=== PATIENT | male | born 1945 | race Caucasian/White ===

== ENCOUNTER 2021-10-13 10:14 | Inpatient (IN) | payer MEDICARE, OTHER, SELFPAY ==
[2021-10-13] VITALS (17 sets, daily range): BP systolic 108–137; BP diastolic 66–83; PULSE 91–102; RESP 13–22; TEMP 37.2; O2SAT 86–94
--- NOTE | 2021-10-13 10:44 | XR_ITS ---
WS: [id number] Exam: XR chest 1V portable [id number] Date/Time of Exam: 10/13/2021 10:47 AM Reason For Exam: Covid No priors. There are infiltrates in the left lower lobe and also possibly along the right heart border. The lung s are hyperinflated and otherwise clear. Normal cardiomediastinal silhouette. Bony structures are int act. Monitoring leads superimpose the chest. XR/XR chest 1V portable [id number] IMPRESSION: 1. Infiltrate and atelectasis in the left base. There may also be some infiltra te along the right heart border. 2. Pulmonary hyperinflation which probably indicates obstructive lung disease.
--- NOTE | 2021-10-13 10:59 | ED_ITS ---
HPI - COVID General: Chief Complaint: COVID symptoms Stated Complaint: Covid + SOB, Fever Time Seen by Provider: 10/13/21 10:59 Triage information: Has fever, cough or shortness of breath . Exposure to COVID + person last 14 days History of Present Illness: Mr. Posadas is a 76-year-old gentleman with history of tobaccoism who presents to the emergency department due to shortness of breath and cough. He has had symptoms for approximately 5 days that were gradual in onset. He took a home COVID test which was positive. He reports associated generalized malaise with muscle aches and chills. Additionally he endorses pain with urination. Overall course of symptoms has worsened. Intensity is moderate to severe. Of note the patient denies medical conditions but has not been to a doctor in many years. No other specific changes in health, exacerbating, or alleviating factors identified. Onset (ago): day(s) Severity: moderate Pertinent comorbid conditions: tobacco use/smoking COVID Results: SARS-CoV-2 Antigen (Rapid) Positive (Negative) H 10/13/21 11:1 2 Review of Systems General: Reports: 10 or more systems reviewed and unremarkable except in HPI and below PFSH ED PFSH: Medical History COPD (chronic obstructive pulmonary disease) No significant past medical history Renal mass since 2019 Smoker Surgical History History of surgery on lower extremity No significant past surgical history Family History Denies family history of Cancer Social History Smoking and tobacco status: current every day smoker Physical Exam Const: COMMON NORMALS: alert GENERAL APPEARANCE: cooperative, well developed and ill appearing HENMT: COMMON NORMALS: normocephalic and atraumatic HEAD & SCALP: n ormocephalic and atraumatic Eye: COMMON NORMALS: conjunctivae normal CONJUNCTIVA: Yes conjunctivae normal SCLERA: sclerae normal Neck/C-Spine: COMMON NORMALS: supple GENERAL: Yes trachea midline Resp: EFFORT & INSPECTION: Yes tachypneic AUSCULTATION: rhonchi and diminished lung sounds Cardio: COMMON NORMALS: regular rate and regular rhythm RATE: regular rate RHYTHM: regular rhythm GI: COMMON NORMALS: Soft to palpation PALPATION: Yes Soft to palpation and No Tenderness to palpation present (GI) Extremity: GENERAL: Yes normal exam except as noted and No edema Neuro: COMMON NORMALS: moves all extremities SENSORIUM/ORIENTATION: Yes alert and No Orientation impaired Psych: COMMON NORMALS: mental status grossly normal and Normal thought process present THOUGHT PROCESS: Normal thought process present Course ED course: - Patient was seen and evaluated by me at bedside - Patient placed on cardiac monitors, IV access obtained - Initial evaluation notable for exam as above. Respiratory distress with hypoxemia on room air. - Labs and xrays personally interpreted by me. EKG notable for sinus rhythm, no STEMI. - RT treatment ordered, steroids ordered - Labs notable for no leukocytosis, normal hemoglobin. Metabolic panel with no significant acute electrolyte derangement. CRP elevated. COVID-positive - Imaging notable for bilateral infiltrate, COPD. No pneumothorax. Ultrasound notable for enlarged prostate gland, postvoid residual elevated, solid renal mass still present. - Upon serial reexamination after treatment the patient was mildly improved,, patient still requiring oxygen. - Based on patient history, evaluation, and testing as interpreted the most likely cause of the patient's condition is COVID-19 with acute hypoxic respiratory failure. - The results of ED evaluation were discussed with the patient including plan for admission due to requirement for level of care not available if discharged to prevent significant worsening/deterioration. - Admitting service was contacted and Dr Cee with the hospitalist service agreed to admit the patient - Patient was admitted without further deterioration or significant events. Note: Click bubbles or prepopulated jacinto in note writing are used for assistance w ith data collection and billing and are inherently more limited than narrative and other text portions of this note. Please use narrative for additional clinical history and defer to narrative/free test for any case of contradictory information. If information appears in only free text or click bubble it should be considered present or absent as reported. Please contact note telegraphic typewriter operator chief for clarifications of clinical information or contradictory information. MDM is a brief summary, contradictory or erroneous seeming information should be clarified and full note should be reviewed. Vital Signs: Vital signs: Vital Signs Temperature 98.1 F 10/16/21 12:48 Pulse Rate 74 10/16/21 12:48 Respiratory Rate 16 10/16/21 12:48 Blood Pressure 118/68 10/16/21 12:48 Pulse Oximetry 83 L 10/16/21 13:40 Oxygen Delivery Me thod 10/16/21 12:00 Oxygen Flow Rate 8 10/16/21 13:40 MDM - COVID Medical Decision Making 76-year-old gentleman with history of COPD presenting with respiratory symptoms. Patient in respiratory distress was initially with new oxygen requirement which improved respiratory distress. Patient COVID-positive. Admitted for further management of COVID-19 with acute hypoxic respiratory failure. Medical Records I reviewed the patient's medical records. Lab Data I reviewed the patient's lab results. : 10/15/21 04:45 10/15/21 04:45 Radiology Impressions Renal Ultrasound 10/13/21 14:54 IMPRESSION: 1. Markedly enlarged prostate gland encroaches into the urinary bladder. 2. Large amount of post void volume remains in the urinary bladder. 3. Patient has a known solid mass associated with the LEFT kidney measuring at least 6.8 x 5.6 x 7.7 cm. Solid renal mass also described on 12/05/2018. Chest/Abdomen/Pelvis CT 10/13/21 17:57 IMPRESSION: 1. Bibasilar consolidations in the dependent aspects of the lung bases, new from most recent comparison. Findings could reflect multifocal pneumonia or given bronchial wall thickening and filling defects bronchitis with mucous plugging and corresponding atelectasis. 2. Mild ectasia of the ascending thoracic aorta up to 4 cm. 3. Moderate emphysematous changes of the lungs. IMPRESSION: 1. Redemonstrated 7 cm left renal mass along the superior pole which is not significantly changed from most recent comparison. 2. Sequela of chronic bladder outlet obstruction with small bladder diverticula. There may be a superimposed cystitis given some inflammatory signal around the anterior diverticula. COMMENTS: Consistent with the [employer]'s Incidental Findings Committee white paper (J Am Colleen Radiol 2018): Any incidental renal lesion less than 1 cm or classified as too small to characterize, or any incidental cystic renal lesion characterized as simple-appearing, is likely benign. No follow-up imaging is recommended for these lesions per consensus recommendations based on imaging criteria. Chest X-Ray 10/16/21 08:02 IMPRESSION: 1. Bilateral lower lobe pneumonia. 2. COPD changes. Bone Scan Nuclear Medicine 10/16/21 11:58 IMPRESSION: No evidence of osseous metastatic disease. Laboratory Results WBC 9.8 10^3/uL (4.0-10.0) 10/13/21 11:10 RBC 4.65 10^6/uL (4.1-5.3) 10/13/21 11:10 Hgb 15.4 g/dL (11.7-16.6) 10/13/21 11:10 Hct 46.7 % (42.0-52.0) 10/13/21 11:10 MCV 100.4 fl (80-94) H 10/13/21 11:10 MCH 33.1 pg (28.0-34.0) 10/13/21 11:10 MCHC 33.0 g/dL (30.0-36.0) 10/13/21 11:10 RDW 14.1 % (12.1-15.1) 10/13/21 11:10 Plt Count 135 10^3/cmm (130-400) 10/13/21 11:10 MPV 10.8 fL (7.4-10.4) H 10/13/21 11:10 Neut % (Auto) 82.0 % 10/13/21 11:10 Lymph % (Auto) 12.6 % 10/13/21 11:10 Antelope % (Auto) 4.8 % 10/13/21 11:10 Eos % (Auto) 0.0 % 10/13/21 11:10 Baso % (Auto) 0.2 % 10/13/21 11:10 Neut # (Auto) 7.99 10^3/uL (1.8-7.7) H 10/13/21 11:10 Lymph # (Auto) 1.2 10^3/uL (0.8-4.8) 10/13/21 11:10 Antelope # (Auto) 0.5 10^3/uL (0.2-0.9) 10/13/21 11:10 Eos # (Auto) 0.0 10^3/uL (0.0-0.8) 10/13/21 11:10 Baso # (Auto) 0.0 10^3/uL (0.0-0.1) 10/13/21 11:10 Nucleated RBC % (auto) 0 % 10/13/21 11:10 Nucleated RBCs # 0.0 /100WBC 10/13/21 11:10 Sodium 136 mmol/L (136-145) 10/13/21 12:54 Potassium 3.9 mmol/L (3.5-5.1) 10/13/21 12:54 Chloride 99 mmol/L (98-107) 10/13/21 12:54 Carbon Dioxide 29 mmol/L (22-29) 10/13/21 12:54 Anion Gap 11.9 (5-19) 10/13/21 12:54 BUN 15 mg/dL (8-23) 10/13/21 12:54 Creatinine 0.5 mg/dL (0.7-1.2) L 10/13/21 12:54 GFR Calculation Not Reportable 10/13/21 12:54 Glucose 110 mg/dL (65-115) 10/13/21 12:54 Calculated Osmolality 283 mOsm/kg (285-295) L 10/13/21 12:54 Calcium 7.9 mg/dL (8.5-10.5) L 10/13/21 12:54 Total Bilirubin 0.3 mg/dL (0.15-1.2) 10/13/21 12:54 AST 26 U/L (0-40) 10/13/21 12:54 ALT 11 U/L (0-41) 10/13/21 12:54 Alkaline Phosphatase 62 IU/L (40-130) 10/13/21 12:54 Troponin T Baseline 9 ng/L (0-15) 10/13/21 11:10 Troponin T 120 Minute 11.75 ng/L (0-15) 10/13/21 12:54 Delta Troponin T 2.75 ABS# (0-10) 10/13/21 12:54 C-Reactive Protein 197.4 mg/L (0.0-4.9) H 10/13/21 12:54 NT-Pro-B Natriuret Pep 334 pg/mL (0-450) 10/13/21 12:54 Total Protein 6.1 g/dL (6.6-8.7) L 10/13/21 12:54 Albumin 3.1 g/dL (3.5-5.2) L 10/13/21 12:54 Globulin 3.0 g/dL (1.3-4.6) 10/13/21 12:54 Procalcitonin 1.88 ng/mL (0-0.5) H 10/13/21 12:54 Urine Color Yellow (Yellow) 10/13/21 13:15 Urine Appearance Clear (CLEAR) 10/13/21 13:15 Urine pH 5 (5-7) 10/13/21 13:15 Ur Specific [place] 1.015 (1.005-1.030) 10/13/21 13:15 Urine Protein 1+ (Negative) H 10/13/21 13:15 Urine Glucose (UA) Norm (Normal) 10/13/21 13:15 Urine Ketones Negative (Negative) 10/13/21 13:15 Urine Blood 3+ (Negative) H 10/13/21 13:15 Urine Nitrate Negative (Negative) 10/13/21 13:15 Urine Bilirubin 1+ (Negative) H 10/13/21 13:15 Urine Urobilinogen 4 mg/dL (Negative) H 10/13/21 13:15 Ur Leukocyte Esterase Negative (Negative) 10/13/21 13:15 Urine RBC 0-4 /hpf (0-2) H 10/13/21 13:15 Urine WBC 0-4 /hpf (0-5) H 10/13/21 13:15 Ur Squamous Epith Cells 0-4 /hpf (0-5) H 10/13/21 13:15 Amorphous Sediment Not Reportable 10/13/21 13:15 Urine Bacteria None /hpf (NONE) 10/13/21 13:15 Influenza Type A Ag Negative (Negative) 10/13/21 11:12 Influenza Type B Ag Negative (Negative) 10/13/21 11:12 SARS-CoV-2 Ag (Rapid) Positive (Negative) H 10/13/21 11:12 SARS-CoV-2 Antigen (Rapid) Positive (Negative) H 10/13/21 11:1 2 Discharge Plan Discharge Patient Disposition: Admitted As Inpatient Admit Provider: Heladio Cee Clinical Impression: COVID-19, Acute respiratory failure with hypoxia, Hematuria Condition: Stable Discharge Diet: Cardiac Discharge Activity: Increase activity as tolerated Coding Level of Care Code ED Button Machine Operator for Chg Fwd Exam Comprehensive
[2021-10-13 11:18] LABS: Basophils % 0.2 %; Lymphocytes # 1.2 10^3/uL (0.8-4.8); Mean Corpuscular Volume 100.4 fl (80-94); Nucleated Red Blood Cells % 0 %
--- NOTE | 2021-10-13 11:26 | ECG_ITS ---
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 Measurements Intervals [place] Rate: 99 P: 80 WV: 139 QRS: -57 QRSD: 98 T: 39 QT: 355 QTc: 457 Interpretive Statements SINUS RHYTHM LEFT AXIS DEVIATION [QRS AXIS < -30] No previous ECG available for comparison Electronically Signed On 10-13-2021 17:22:55 CDT by Kya Hunt M.D. [id number]
[2021-10-13 11:42] LABS: Troponin(5th) Baseline 9 ng/L (0-15)
[2021-10-13 11:54] LABS: Hematocrit 46.7 % (42.0-52.0); Hemoglobin 15.4 g/dL (11.7-16.6); Lymphocytes % 12.6 %; Mean Corpuscular Hemoglobin 33.1 pg (28.0-34.0); Mean Platelet Volume 10.8 fL (7.4-10.4); Monocytes # 0.5 10^3/uL (0.2-0.9); Monocytes % 4.8 %; Neutrophils # 7.99 10^3/uL (1.8-7.7); Platelet Count 135 10^3/cmm (130-400); Red Blood Count 4.65 10^6/uL (4.1-5.3); Red Cell Distribution Width 14.1 % (12.1-15.1); White Blood Count 9.8 10^3/uL (4.0-10.0)
[2021-10-13 11:55] LABS: Slide Review Slide Review Perform
[2021-10-13 13:30] LABS: Troponin 5 2HR 11.75 ng/L (0-15)
--- NOTE | 2021-10-13 13:35 | ECG_ITS ---
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 Measurements Intervals [place] Rate: 96 P: 94 WI: 149 QRS: -56 QRSD: 97 T: 40 QT: 360 QTc: 455 Interpretive Statements SINUS RHYTHM LEFT AXIS DEVIATION [QRS AXIS < -30] ANTEROSEPTAL MYOCARDIAL INFARCTION , OF INDETERMINATE AGE [40+ ms Q WAVE IN V1-V4] Compared to ECG 10/13/2021 11:26:47 Myocardial infarct finding now present Electronically Signed On 10-13-2021 17:46:57 CDT by Kya Hunt M.D. [id number]
[2021-10-13 13:39] LABS: Alanine Aminotransferase 11 U/L (0-41); Albumin Level 3.1 g/dL (3.5-5.2); Alkaline Phosphatase 62 IU/L (40-130); Blood Urea Nitrogen 15 mg/dL (8-23); Calcium 7.9 mg/dL (8.5-10.5); Carbon Dioxide 29 mmol/L (22-29); Chloride 99 mmol/L (98-107); Glucose 110 mg/dL (65-115); NT Pro B Type Natriuretic Pept 334 pg/mL (0-450); Osmolality Calculated 283 mOsm/kg (285-295); Sodium 136 mmol/L (136-145); Total Bilirubin 0.3 mg/dL (0.15-1.2); Total Protein 6.1 g/dL (6.6-8.7)
[2021-10-13 13:40] LABS: Anion Gap 11.9 (5-19); Potassium 3.9 mmol/L (3.5-5.1)
[2021-10-13 13:41] LABS: Aspartate Amino Transferase 26 U/L (0-40)
[2021-10-13 13:42] LABS: Troponin 5 2HR Delta 2.75 ABS# (0-10)
[2021-10-13 13:42] LABS: Add Urine Microscopic? YES; Bilirubin Urine 1+ (Negative); Blood Urine 3+ (Negative); Glucose Urine UA Norm (Normal); Ketones Urine Negative (Negative); Leukocyte Esterase Urine Negative (Negative); Nitrate Urine Negative (Negative); Protein Urine 1+ (Negative); Specific Gravity, Urine 1.015 (1.005-1.030); Urine Appearance Clear (CLEAR); Urine Color Yellow (Yellow); Urobilinogen Urine 4 mg/dL (Negative); pH Urine 5 (5-7)
[2021-10-13 13:46] LABS: Influenza A by IFA Negative (Negative); Influenza B by IFA Negative (Negative)
[2021-10-13 13:48] LABS: Add Urine Culture? No; RBC Urine 0-4 /hpf (0-2); Squamous Epithelial Cell Urine 0-4 /hpf (0-5); WBC Urine 0-4 /hpf (0-5)
[2021-10-13 14:16] LABS: SARS Covid-2 Antigen Positive (Negative)
[2021-10-13] MEDS: ipratropium-albuterol 3 mL Neb INHALATION ×2 (14:32→23:01)
[2021-10-13 14:41] LABS: C Reactive Protein 197.4 mg/L (0.0-4.9)
--- NOTE | 2021-10-13 14:54 | US_ITS ---
WS: [id number] RENAL ULTRASOUND URINARY BLADDER ULTRASOUND HISTORY: hematuria COMPARISON: None available. TECHNIQUE: 2-D and color Doppler imaging of the kidney submitted. Right kidney: 11.4 cm x 4.6 cm x 4.7 cm. Normal echogenicity with no hydronephrosis or mass. Left kidney: 11.7 cm x 4.6 cm x 6.0 cm. Patient has a known large solid mass associated with the LEFT kidney which has been previously descri bed. Mass measures at least 6.8 x 5.6 x 7.7 cm. There is increased vascularity. No renal obstruction. Aorta: Not visualized. Urinary Bladder: Distended urinary bladder with enlarged prostate. Prostate measures at least 7.9 x 5 .2 x 5.3 cm encroaches into the base of the bladder. Prevoid volume 117 mL. Post void volume 101 mL. US/US renal BI with PV bladder IMPRESSION: 1. Markedly enlarged prostate gland encroaches into the urinary bladder. 2. Large amount of post void volume remains in the urinary bladder. 3. Patient has a known solid mass associated with the LEFT kidney measuring at least 6.8 x 5.6 x 7.7 cm. Solid renal mass also described on 12/05/2018.
[2021-10-13] MEDS: dexamethasone 10 mg/mL INJ 6 MG IVP (15:43)
[2021-10-13 15:51] LABS: Procalcitonin 1.88 ng/mL (0-0.5)
--- NOTE | 2021-10-13 16:40 | ECG_ITS ---
[facility] Test Date: 2021-10-13 Pat Name: Jesus Posadas Department: Room: 271 Gender: Male Social Staff Worker: : 1945 Requested By: Sina Sanders Order Number: [id number] Gabby MD: Kya Hunt M.D. Measurements Intervals [place] Rate: 92 P: 95 [place]: 144 QRS: -52 QRSD: 94 T: 23 QT: 370 QTc: 459 Interpretive Statements SINUS RHYTHM LEFT ANTERIOR FASCICULAR BLOCK [QRS AXIS <= -45, QR IN I, RS IN II] SEPTAL MYOCARDIAL INFARCTION , PROBABLY OLD [40+ ms Q WAVE IN V1/V2] Compared to ECG 10/13/2021 13:35:04 Left anterior fascicular block now present Left-axis deviation no longer present Myocardial infarct finding still present Electronically Signed On 10-13-2021 17:37:20 CDT by Kya Hunt M.D. [id number]
--- NOTE | 2021-10-13 17:06 | PM.HP ---
Providers/Chief Complaint Admitting Physician: Heladio Cee MD Primary Care Provider: Renea Gutiérrez, ORNAMENTAL METAL WORKER HELPER-C Chief Complaint: Covid + SOB, Fever History of Present Illness Jesus Posadas is a 76 year old male without significant past medical history presented with chief complaint of worsening fatigue. Patient is stating that he started having fatigue and lethargy for about 2 weeks. He went to [place] 2 weeks ago. His symptoms started even before that. At home he has started noticing dark-colored urine, low-grade fever was noticed by the family member as well. No active chest pain or shortness of breath however he is endorsing nonproductive cough. No recent diarrhea. Or strokelike symptoms. Today because of fatigue and lethargy and low-grade fever he decided to come to the hospital for further evaluation. He has been diagnosed with COVID-19. In the ER he received 6 mg of Decadron I have started him on remdesivir, will request CT chest as he is a smoker, he has been losing weight, endorsing anorexia, He has been smoking half a pack a day for last 50 years Family is at the bedside Currently he is on 4 L nasal cannula No acute respite distress however he is showing signs of COPD, crackles and rhonchi present lung auscultation I requested CT chest start him on ceftriaxone for BPH related UTI and hematuria Patient knows about renal mass Patient is a full code I requested MRSA PCR Starting cardiac diet Review of Systems Const: Reports: fever(s), body aches, change in appetite, change in weight, fatigue and malaise Eyes: Denies: change in vision ENMT: Denies: throat pain Card: Denies: chest pain Resp: Reports: dyspnea GI: Denies: abdominal pain : Denies: flank pain Musc: Denies: neck pain Skin/Breast: Denies: rash Neuro: Denies: headache(s) Psych: Denies: anxiety Endo: Denies: polyuria Asif/Lymph: Denies: easy bruising All/Imm: Denies: urticaria Medications/Allergies Home Medications Medication Instructions Recorded Confirmed Last Taken Type No Known Home Medications 10/13/21 10/13/21 Unknown History Allergies Allergy/AdvReac Type Severity Reaction Status Date / Time No Known Allergies Allergy Verified 10/13/21 11:54 PFSH Acute PFSH: Medical History COPD (chronic obstructive pulmonary disease) No significant past medical history Renal mass since 2019 Smoker Surgical History History of surgery on lower extremity No significant past surgical history Family History Denies family history of Cancer Social History Smoking and tobacco status: current every day smoker Vitals/I&O/Wt Last Vital Signs Temp 98.9 F 10/13/21 10:28 Pulse 94 10/13/21 16:30 Resp 19 H 10/13/21 16:00 BP 117/66 10/13/21 16:30 Pulse Ox 91 10/13/21 16:30 O2 Del Method 10/13/21 14:35 O2 Flow Rate 3.5 10/13/21 14:35 Physical Exam Narrative: Thin lean, malnourished elderly male very comfortable in his bed No respiratory distress S1, S2 Rhonchi and crackles appreciated in the lung base No signs of stroke Appropriate mood and affect Family at the bedside EOMI, PERRLA Abdomen is soft Abdomen is soft Data : 10/13/21 11:10 10/13/21 12:54 A&P Assessment and plan (1) Hematuria: Status: Acute (2) COVID-19: Status: Acute (3) Acute respiratory failure with hypoxia: Status: Acute (4) Anorexia: Status: Acute (5) Weight loss: Status: Acute (6) BPH (benign prostatic hyperplasia): Status: Acute Plan COVID-19 related acute hypoxia DuoNeb treatment with budesonide Incentive spirometry No active respiratory distress COPD Patient has pursed lip breathing Has not seen a doctor in a long time Endorsing anorexia, weight loss, 50-year smoking history, DuoNeb Would recommend outpatient pulmonary follow-up BPH Prostatitis? Painful hematuria No signal signs of UTI, patient is complaining of dysuria, I will start ceftriaxone empirically CT abdomen pelvis because of BPH Will need outpatient urology follow-up EKG showing left anterior fascicle block, no active chest pain or shortness of breath Wean oxygen down to room air Respiratory to assess Will give patient at least 48 hours, monitor inflammatory markers Check D-dimer Patient is full code Cardiac diet Patient is malnourished mild protein calorie malnourishment Will add protein supplements Dietary consultation I am holding DVT prophylaxis for tonight, if hemoglobin stays stable and hematuria resolves will start tomorrow SCDs for now No signs of stroke of lower extremity weakness This is likely COVID-19 related Attestations Medical Necessity Statement*: Anticipating more than 2 midnights for anticipating more than 2 midnights for management of COVID-19 pneumonia. Time Spent in Patient Care: 40 Coding Level of Care Code Acute Seasoner Hand for Chg Fwd Diagnoses Hematuria R31.9 COVID-19 U07.1 Acute respiratory failure with hypoxia J96.01 Anorexia R63.0 Weight loss R63.4 BPH (benign prostatic hyperplasia) N40.0
[2021-10-13 17:47] LABS: Troponin 5 6HR 12.12 ng/L (0-15)
[2021-10-13 17:56] LABS: Procalcitonin 1.82 ng/mL (0-0.5)
--- NOTE | 2021-10-13 17:57 | CTR_ITS ---
PROCEDURE INFORMATION: Exam: CT Chest Without Contrast; Diagnostic Exam date and time: 10/13/2021 9:41 PM Age: 76 years old Clinical indication: Shortness of breath; Patient HX: C/O SOB. Abnormal weight loss. Known left renal mass. ; Additional info: Smoker anorexia, SOB TECHNIQUE: Imaging protocol: Diagnostic computed tomography of the chest without contrast. Radiation optimization: All CT scans at this facility use at least one of these dose optimization techniques: automated exposure control; mA and/or kV adjustment per patient size (includes targeted exams where dose is matched to clinical indication); or iterative reconstruction. COMPARISON: CT Chest/Abdomen/Pelvis w IV* 12/05/2018 2:26 PM RADIATION DOSE METRICS: Total DLP (mGy-cm): 560.58 FINDINGS: Lungs: Bibasilar consolidations in the posterior dependent aspect of the lung bases, new from most recent comparison. There also appears to be mild bronchial wall thickening of the lower lobe bronchi and intraluminal filling defects adjacent to the consolidations. Moderate centrilobular emphysematous changes of the lungs noted. No pulmonary nodules/masses are appreciated. Pleural spaces: Unremarkable. No pneumothorax. No pleural effusion. Heart: Dense coronary artery calcifications noted. No cardiomegaly. No pericardial effusion. Lymph nodes: Unremarkable. No enlarged lymph nodes. Vasculature: Mild ectasia of the ascending thoracic aorta up to 4 cm in size. No aortic aneurysm. Bones/joints: No acute fracture. No aggressive osseous lesion. Soft tissues: Unremarkable. PROCEDURE INFORMATION: Exam: CT Abdomen And Pelvis Without Contrast Exam date and time: 10/13/2021 9:41 PM Age: 76 years old Clinical indication: Shortness of breath; Patient HX: C/O SOB. Abnormal weight loss. Known left renal mass. ; Additional info: Smoker anorexia, SOB TECHNIQUE: Imaging protocol: Computed tomography of the abdomen and pelvis without contrast. Radiation optimization: All CT scans at this facility use at least one of these dose optimization techniques: automated exposure control; mA and/or kV adjustment per patient size (includes targeted exams where dose is matched to clinical indication); or iterative reconstruction. COMPARISON: CT Chest/Abdomen/Pelvis w IV* 12/05/2018 2:26 PM RADIATION DOSE METRICS: Total DLP (mGy-cm): 560.58 FINDINGS: Liver: Normal. No mass. Gallbladder and bile ducts: Normal. No calcified stones. No ductal dilation. Pancreas: Normal. No ductal dilation. Spleen: Normal. No splenomegaly. Adrenal glands: Normal. No mass. Kidneys and ureters: Similar appearance of a left renal mass along the superior pole measuring 7.0 x 5.6 cm previously measuring 6.9 x 5.3 cm when measured in a similar fashion. No hydronephrosis. Stomach and bowel: Colonic diverticulosis without findings of acute diverticulitis. No obstruction. No mucosal thickening. Appendix: No evidence of appendicitis. Intraperitoneal space: Unremarkable. No free air. No significant fluid collection. Vasculature: Unremarkable. No abdominal aortic aneurysm. Lymph nodes: Unremarkable. No enlarged lymph nodes. Urinary bladder: Sequela of chronic bladder outlet obstruction with multiple small bladder diverticula. There is some inflammatory stranding around a left anterior diverticula along the as noted on series 5, image 58. Reproductive: Enlarged prostate. Bones/joints: No acute fracture. No aggressive osseous lesion. Soft tissues: Unremarkable. CT/[place] [id number] IMPRESSION: 1. Bibasilar consolidations in the dependent aspects of the lung bases, new from most recent comparison. Findings could reflect multifocal pneumonia or given bronchial wall thickening and filling defects bronchitis with mucous plugging and corresponding atelectasis. 2. Mild ectasia of the ascending thoracic aorta up to 4 cm. 3. Moderate emphysematous changes of the lungs. IMPRESSION: 1. Redemonstrated 7 cm left renal mass along the superior pole which is not significantly changed from most recent comparison. 2. Sequela of chronic bladder outlet obstruction with small bladder diverticula. There may be a superimposed cystitis given some inflammatory signal around the anterior diverticula. COMMENTS: Consistent with the [employer]'s Incidental Findings Committee white paper (J Am Colleen Radiol 2018): Any incidental renal lesion less than 1 cm or classified as too small to characterize, or any incidental cystic renal lesion characterized as simple-appearing, is likely benign. No follow-up imaging is recommended for these lesions per consensus recommendations based on imaging criteria.
[2021-10-13 18:11] LABS: Troponin 5 6HR Delta 3.12 ng/L (0-12)
[2021-10-13 19:23] LABS: NT Pro B Type Natriuretic Pept 277 pg/mL (0-450)
[2021-10-13] MEDS: remdesivir 200 MG in sodium chloride 0.9% (100 ml) 60 ML 100 MG IV (20:19)
[2021-10-13 21:00] LABS: Glucose Point of Care 167 mg/dL (70-110)
[2021-10-13] MEDS: budesonide 0.5 mg/2 mL Neb INHALATION (23:01)
[2021-10-14] VITALS (8 sets, daily range): BP systolic 126–137; BP diastolic 62–77; PULSE 79–85; RESP 14–18; TEMP 36.6–37.1; O2SAT 88–94
[2021-10-14 04:59] LABS: ABG PCO2 44.5 mmHg (35-45); ABG PH Result 7.44 (7.35-7.45); Arterial Blood Gas Hematocrit 41.7 % (42-52); Base Excess ABG 5.4 mmol/L (-2.0-2.0); Blood Gas Allen Test Pos; Blood Gas LPM 3.5 %; Blood Gas Sample Site Radial, left; Blood Gas Sample Type Arterial; HCO3 ABG 30.4 mmol/L (22-26); Oxygen Device NC; PO2 ABG 59.2 mmHg (80.0-100.0)
[2021-10-14 05:57] LABS: Basophils % 0.2 %; Hematocrit 41.5 % (42.0-52.0); Hemoglobin 13.8 g/dL (11.7-16.6); Lymphocytes # 0.8 10^3/uL (0.8-4.8); Lymphocytes % 14.7 %; Mean Corpuscular HGB Conc 33.3 g/dL (30.0-36.0); Mean Corpuscular Hemoglobin 33.2 pg (28.0-34.0); Mean Corpuscular Volume 99.8 fl (80-94); Mean Platelet Volume 10.5 fL (7.4-10.4); Monocytes # 0.3 10^3/uL (0.2-0.9); Monocytes % 4.8 %; Neutrophils # 4.44 10^3/uL (1.8-7.7); Neutrophils % 79.4 %; Nucleated Red Blood Cells % 0 %; Platelet Count 145 10^3/cmm (130-400); Red Blood Count 4.16 10^6/uL (4.1-5.3); Red Cell Distribution Width 13.4 % (12.1-15.1); White Blood Count 5.6 10^3/uL (4.0-10.0)
[2021-10-14 06:21] LABS: Glucose Point of Care 121 mg/dL (70-110)
[2021-10-14 06:32] LABS: D Dimer 1.34 ug/mIFEU (0-0.59)
[2021-10-14 06:34] LABS: Procalcitonin 1.48 ng/mL (0-0.5)
[2021-10-14 06:45] LABS: Anion Gap 13.1 (5-19); Blood Urea Nitrogen 15 mg/dL (8-23); C Reactive Protein 173.1 mg/L (0.0-4.9); Calcium 8.1 mg/dL (8.5-10.5); Carbon Dioxide 29 mmol/L (22-29); Chloride 101 mmol/L (98-107); Glucose 135 mg/dL (65-115); Magnesium 2.3 mg/dL (1.7-2.3); Osmolality Calculated 291 mOsm/kg (285-295); Phosphorus 2.4 mg/dL (2.5-4.5); Potassium 4.1 mmol/L (3.5-5.1); Sodium 139 mmol/L (136-145)
[2021-10-14] MEDS: sennosides-docusate Tablet 1 TAB PO (08:41)
[2021-10-14] MEDS: cefTRIAXone 1,000 MG in sodium chloride 0.9% (plus) 50 ML 100 MG IV (08:41)
[2021-10-14] MEDS: dexamethasone 4 mg Tablet 6 MG PO (08:41)
[2021-10-14] MEDS: ipratropium-albuterol 3 mL Neb INHALATION ×2 (09:27→20:18)
[2021-10-14] MEDS: budesonide 0.5 mg/2 mL Neb INHALATION ×2 (09:27→20:18)
--- NOTE | 2021-10-14 11:51 | P.PN_ITS ---
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 Patient 840 to 50% of his breakfast, no active complaint of shortness of breath, no fever, Vitals/I&O/Wt Last Vital Signs Temp 98.5 F 10/14/21 11:16 Pulse 79 10/14/21 11:16 Resp 16 10/14/21 11:16 BP 126/62 10/14/21 11:16 Pulse Ox 90 10/14/21 11:16 O2 Del Method 10/14/21 11:16 O2 Flow Rate 4 10/14/21 11:16 10/13/21 10/14/21 10/14/21 22:59 06:59 14:59 Intake Total 680 / 680 50 / 50 Balance 680 / 680 50 / 50 Weight last 48 hrs Weight 63.049 kg Physical Exam Narrative: Digital rectal exam revealed firm prostate, no signs of prostatitis Patient is cachectic, malnourished Abdomen soft Currently on 4 L No active distress Crackles improved No respite distress tachypnea or conversational dyspnea Nonfocal neuro exam Awake and alert Data : 10/14/21 04:50 10/14/21 04:50 A&P Assessment and plan (1) BPH (benign prostatic hyperplasia): Status: Acute (2) Weight loss: Status: Acute (3) Anorexia: Status: Acute (4) COVID-19: Status: Acute (5) Acute respiratory failure with hypoxia: Status: Acute (6) Hematuria: Status: Acute (7) Ectasia of artery: Status: Acute (8) Left renal mass: Status: Acute (9) Mild protein-energy malnutrition: Status: Acute Plan Bladder outlet obstruction. Hematuria: Improved hemoglobin 13.8 hemodynamically stable Left renal mass 7 x 5 cm, it has increased in dimension since 2019 Leading to bladder diverticuli Prostate is enlarged no signs of prostatitis PSA is high, considering anorexia weight loss, would recommend follow-up with Dr. Daugherty Patient is agreeable for biopsy if needed On current CT scan there are no lytic lesions which are present thousand 19 PSA 33 I will do a bone scan D-dimer could be high related to underlying COVID-19, we are not sure about his prostate malignancy no Signs of lower extremity swelling COVID-19 related hypoxia Currently on 4 L of cannula No acute worsening Continue remdesivir and Decadron UTI however UA is unremarkable, since he complained of burning on micturition, there are no signs of prostatitis, I would continue ceftriaxone at the day of discharge patient is getting empirical coverage with ceftriaxone No signs of pulm nodule on current CT scan. Mild protein energy malnourishment, added Beneprotein 3 times daily with meals Full code Cardiac diet DVT prophylaxis: Lovenox can be resumed, hemoglobin has remained stable, no active hematuria Attestations Medical Necessity Statement*: Continue medical management Time Spent in Patient Care: 35 Coding Level of Care Code Acute Instructional Systems Specialist for g Fwd Diagnoses BPH (benign prostatic hyperplasia) N40.0 Weight loss R63.4 Anorexia R63.0 COVID-19 U07.1 Acute respiratory failure with hypoxia J96.01 Hematuria R31.9 Ectasia of artery I77.89 Left renal mass N28.89 Mild protein-energy malnutrition E44.1
[2021-10-14] MEDS: tamsulosin 0.4 mg Capsule PO (13:03)
[2021-10-14 13:07] LABS: Glucose Point of Care 142 mg/dL (70-110)
[2021-10-14] MEDS: remdesivir 100 MG in sodium chloride 0.9% (100 ml) 100 ML IV (17:45)
[2021-10-14 21:10] LABS: Glucose Point of Care 189 mg/dL (70-110)
[2021-10-14] MEDS: enoxaparin 40 mg/0.4 mL Syringe SUBCUT (21:35)
[2021-10-14] MEDS: finasteride 5 mg Tablet PO (21:35)
--- NOTE | 2021-10-14 22:13 | PC.NURSE ---
MRSA nasal swab sent to lab. Verified received by Ofelia- application integrator
--- NOTE | 2021-10-14 23:00 | PC.NURSE ---
Refusing bladder scan at this time.
[2021-10-15] VITALS (9 sets, daily range): BP systolic 118–146; BP diastolic 57–75; PULSE 77–89; RESP 14–24; TEMP 36.8–37.1; O2SAT 85–95
--- NOTE | 2021-10-15 02:59 | PC.NURSE ---
Resting quietly, Sats 93% on 4.5L NC. Zero s/s pain/distress. Resp easy/Non-labored.
--- NOTE | 2021-10-15 04:00 | PC.NURSE ---
Bladder Scan reveals zero residual. Bladder is not distended, patient states he doesn't feel like he's retaining and feels that he is emptying his bladder with voids.
[2021-10-15 04:59] LABS: Hematocrit 38.2 % (42.0-52.0); Hemoglobin 12.9 g/dL (11.7-16.6); Lymphocytes # 0.8 10^3/uL (0.8-4.8); Lymphocytes % 14.4 %; Mean Corpuscular HGB Conc 33.8 g/dL (30.0-36.0); Mean Corpuscular Hemoglobin 32.7 pg (28.0-34.0); Mean Platelet Volume 9.8 fL (7.4-10.4); Monocytes # 0.7 10^3/uL (0.2-0.9); Monocytes % 12.7 %; Neutrophils # 4.14 10^3/uL (1.8-7.7); Nucleated Red Blood Cells % 0 %; Platelet Count 172 10^3/cmm (130-400); Red Blood Count 3.94 10^6/uL (4.1-5.3); Red Cell Distribution Width 13.2 % (12.1-15.1); White Blood Count 5.8 10^3/uL (4.0-10.0)
[2021-10-15 05:31] LABS: Blood Urea Nitrogen 19 mg/dL (8-23); C Reactive Protein 69.2 mg/L (0.0-4.9); Calcium 8.2 mg/dL (8.5-10.5); Carbon Dioxide 29 mmol/L (22-29); Chloride 103 mmol/L (98-107); Glucose 144 mg/dL (65-115); Osmolality Calculated 295 mOsm/kg (285-295); Sodium 140 mmol/L (136-145)
[2021-10-15 05:33] LABS: Anion Gap 12.2 (5-19); Potassium 4.2 mmol/L (3.5-5.1)
[2021-10-15 06:17] LABS: Glucose Point of Care 114 mg/dL (70-110)
[2021-10-15] MEDS: budesonide 0.5 mg/2 mL Neb INHALATION ×2 (09:16→20:57)
[2021-10-15] MEDS: ipratropium-albuterol 3 mL Neb INHALATION ×2 (09:16→20:57)
[2021-10-15] MEDS: sennosides-docusate Tablet 1 TAB PO (09:30)
[2021-10-15] MEDS: dexamethasone 4 mg Tablet 6 MG PO (09:30)
[2021-10-15] MEDS: tamsulosin 0.4 mg Capsule PO (09:30)
[2021-10-15] MEDS: cefTRIAXone 1,000 MG in sodium chloride 0.9% (plus) 50 ML 100 MG IV (09:31)
[2021-10-15 12:09] LABS: Glucose Point of Care 155 mg/dL (70-110)
--- NOTE | 2021-10-15 13:08 | PM.PN ---
Subjective Subjective: Patient is very anxious to return home, I have requested him to stay 1 more day I will touch base with Dr. Daugherty tomorrow morning Most likely we will treat his COVID-19 vaccine first and then histopathological diagnosis for kidney mass versus prostate biopsy No overnight events He is constipated However he is passing gas, poor p.o. intake Appreciate dietary recommendations I have asked his nurse to request RT to evaluate him for weaning of oxygen on ambulation Vitals/I&O/Wt Last Vital Signs Temp 98.3 F 10/15/21 08:00 Pulse 89 10/15/21 09:20 Resp 18 10/15/21 08:00 BP 146/75 10/15/21 08:00 Pulse Ox 91 10/15/21 08:00 O2 Del Method 10/15/21 08:00 O2 Flow Rate 4 10/15/21 08:00 10/14/21 10/15/21 10/15/21 22:59 06:59 14:59 Intake Total 400 / 690 160 / 850 390 / 390 Output Total 175 / 175 Balance 400 / 690 -15 / 675 390 / 390 Weight last 48 hrs Weight 63.049 kg Physical Exam Narrative: Currently patient is on 4 L nasal cannula Dehydrated Malnourished Pursed lip breathing No tachypnea S1, S2 Lungs sound clear to me as compared to yesterday Abdomen is flat No legedema Patient is still noticing dark-colored urine Data : 10/15/21 04:45 10/15/21 04:45 A&P Assessment and plan (1) Mild protein-energy malnutrition: Status: Acute (2) Left renal mass: Status: Acute (3) Ectasia of artery: Status: Acute (4) BPH (benign prostatic hyperplasia): Status: Acute (5) Weight loss: Status: Acute (6) Anorexia: Status: Acute (7) COVID-19: Status: Acute (8) Acute respiratory failure with hypoxia: Status: Acute (9) Hematuria: Status: Acute Plan Mild protein calorie malnourishment Appreciate dietary recommendations Did mortgage loan counselor patient regarding protein intake he does have muscle wasting, COVID-19 pneumonia, wean oxygen off, will request RT to check oxygen level at the time of exertion Abnormal PSA, prostate, back pain, will request bone scan Left renal mass, patient is willing to go for biopsy, will give him Dr. Daugherty's referral we will discuss case with him tomorrow as needed he is not on-call over the weekend Hematuria: Hemoglobin stable hemodynamically stable Full code Supplemental diet DVT prophylaxis on board Ceftriaxone empirical however does not have typical UTI symptoms discharge tomorrow Discharge tomorrow Attestations Medical Necessity Statement*: Discharge tomorrow Time Spent in Patient Care: 30 Coding Level of Care Code Acute Fibreglass Laminator for Chg Fwd Diagnoses Mild protein-energy malnutrition E44.1 Left renal mass N28.89 Ectasia of artery I77.89 BPH (benign prostatic hyperplasia) N40.0 Weight loss R63.4 Anorexia R63.0 COVID-19 U07.1 Acute respiratory failure with hypoxia J96.01 Hematuria R31.9
[2021-10-15] MEDS: remdesivir 100 MG in sodium chloride 0.9% (100 ml) 100 ML IV (18:11)
[2021-10-15] MEDS: enoxaparin 40 mg/0.4 mL Syringe SUBCUT (18:11)
[2021-10-15 20:29] LABS: Glucose Point of Care 161 mg/dL (70-110)
[2021-10-15] MEDS: finasteride 5 mg Tablet PO (20:50)
[2021-10-16] VITALS (9 sets, daily range): BP systolic 118–146; BP diastolic 65–77; PULSE 66–79; RESP 16–20; TEMP 36.7–37.1; O2SAT 83–96
[2021-10-16 04:16] LABS: Glucose Point of Care 169 mg/dL (70-110)
[2021-10-16 05:02] LABS: D Dimer 0.44 ug/mIFEU (0-0.59)
[2021-10-16 05:10] LABS: C Reactive Protein 32.2 mg/L (0.0-4.9)
[2021-10-16 07:23] LABS: Glucose Point of Care 132 mg/dL (70-110)
--- NOTE | 2021-10-16 08:02 | XRR_ITS ---
PROCEDURE INFORMATION: Exam: XR Chest Exam date and time: 10/16/2021 8:31 AM Age: 76 years old Clinical indication: Shortness of breath; Additional info: Hypoxia TECHNIQUE: Imaging protocol: Radiologic exam of the chest. Views: 1 view. COMPARISON: CT chest [place] [id number] 10/13/2021 9:41 PM FINDINGS: Lungs: The lungs are somewhat hyperinflated with increased interstitial markings, consistent with COPD changes seen on CT chest. There is patchy airspace opacities along the medial aspect the lower lungs, corresponding to no pneumonia. Pleural spaces: Unremarkable. No pleural effusion. No pneumothorax. Heart/Mediastinum: Stable cardiomediastinal silhouette. Stable cardiomediastinal silhouette. Bones/joints: Unremarkable. XR/XR chest 1V portable [id number] IMPRESSION: 1. Bilateral lower lobe pneumonia. 2. COPD changes.
[2021-10-16] MEDS: sennosides-docusate Tablet 1 TAB PO (08:37)
[2021-10-16] MEDS: tamsulosin 0.4 mg Capsule PO (08:37)
[2021-10-16] MEDS: dexamethasone 4 mg Tablet 6 MG PO (08:38)
[2021-10-16] MEDS: ipratropium-albuterol 3 mL Neb INHALATION (09:50)
[2021-10-16] MEDS: budesonide 0.5 mg/2 mL Neb INHALATION (09:50)
--- NOTE | 2021-10-16 10:32 | PC.SOCIAL ---
IMM update IMM updated with patient's daughter. Verbalized an understanding. Initialled, dated, timed, and placed in chart.
--- NOTE | 2021-10-16 11:40 | P.DS_ITS ---
Discharge Providers Date of Admission: 10/13/21 15:23 Date of Discharge: October 16, 2021 Attending Provider at Admission: Heladio Cee MD Attending Provider at Discharge: Heladio Cee MD Primary Care Provider: KATHRYN Huddleston Diagnoses at Discharge Discharge Diagnosis (1) Mild protein-energy malnutrition: Status: Acute (2) Left renal mass: Status: Acute Permanent problem details: 7 x 5cm now 2019 6.9x5.3 (3) Ectasia of artery: Status: Acute Permanent problem details: Ascending aorta 4 cm (4) BPH (benign prostatic hyperplasia): Status: Acute (5) Weight loss: Status: Acute (6) Anorexia: Status: Acute (7) COVID-19: Status: Acute (8) Acute respiratory failure with hypoxia: Status: Acute (9) Hematuria: Status: Acute Reason for Visit Reason for Visit: Covid + SOB, Fever Hospital Course Hospital Course 76-year-old male who was diagnosed with solid renal mass with lytic lesion in his spine and ischium 2018, he did not follow-up with his primary care or urologist presented to the hospital with chief complaint of worsening of fatigue and lethargy for about 2 weeks before his arrival in the ER. He also had a trip to [place]. His symptoms started before this trip. This time he was diagnosed with COVID-19. He did receive Decadron and remdesivir. He experienced steroid- induced hyperglycemia. Prostate exam was nontender however it was firm. PSA 33, left renal mass has increased in dimension, he was also experiencing painful hematuria, hematuria improved over the course of time hemoglobin remained stable. He remained hemodynamically stable. He qualified for 4 L of oxygen at the time of discharge, he received empirical treatment of ceftriaxone however no signs of UTI on UA. No signs of prostatitis. His EKG showed left anterior fascicular block however no active chest pain. For his malnourishment mild protein calorie malnourishment dietitian was consulted, he did receive protein supplements. He is agreeable to follow-up with Dr. Daugherty. Family was kept updated on daily basis. His recent CT scan did not tow picker any abnormal finding of his lumbar spine or ischial area I have requested nuclear bone scan before his discharge. He has been an active smoker smokes half a pack a day. I will prescribe him inhalers such as albuterol, trilogy along his oxygen. Dr. Daugherty has reviewed his CT scan, he is aware of his findings. Outpatient follow-up. Physical Exam Narrative: No signs ofCachectic, malnourished early male Currently on 4 L nasal cannula No active crackles or wheezing Abdomen soft No signs of edema No active hematuria Conversational dyspnea Hemodynamically stable Digital rectal exam did not show prostatitis Firm prostate Discharge Data Studies Completed and Pending Completed Studies During Hospitalization Category [place] [id number] Routine Cat Scan 10/13/21 17:57 Completed XR chest 1V portable [id number] Stat Exams 10/13/21 10:44 Completed XR chest 1V portable [id number] Stat Exams 10/16/21 08:02 Completed US renal BI with PV bladder Urgent Ultrasound 10/13/21 14:54 Completed Pending at discharge Category Date Time Status NM bone scan whole body* [id number] Routine Nuc Med 10/16/21 11:58 Ordered Radiology Impressions Renal Ultrasound 10/13/21 14:54 IMPRESSION: 1. Markedly enlarged prostate gland encroaches into the urinary bladder. 2. Large amount of post void volume remains in the urinary bladder. 3. Patient has a known solid mass associated with the LEFT kidney measuring at least 6.8 x 5.6 x 7.7 cm. Solid renal mass also described on 12/05/2018. Chest/Abdomen/Pelvis CT 10/13/21 17:57 IMPRESSION: 1. Bibasilar consolidations in the dependent aspects of the lung bases, new from most recent comparison. Findings could reflect multifocal pneumonia or given bronchial wall thickening and filling defects bronchitis with mucous plugging and corresponding atelectasis. 2. Mild ectasia of the ascending thoracic aorta up to 4 cm. 3. Moderate emphysematous changes of the lungs. IMPRESSION: 1. Redemonstrated 7 cm left renal mass along the superior pole which is not significantly changed from most recent comparison. 2. Sequela of chronic bladder outlet obstruction with small bladder diverticula. There may be a superimposed cystitis given some inflammatory signal around the anterior diverticula. COMMENTS: Consistent with the [employer]'s Incidental Findings Committee white paper (J Am Colleen Radiol 2018): Any incidental renal lesion less than 1 cm or classified as too small to characterize, or any incidental cystic renal lesion characterized as simple-appearing, is likely benign. No follow-up imaging is recommended for these lesions per consensus recommendations based on imaging criteria. Chest X-Ray 10/16/21 08:02 IMPRESSION: 1. Bilateral lower lobe pneumonia. 2. COPD changes. Laboratory Results WBC 5.8 10^3/uL (4.0-10.0) 10/15/21 04:45 RBC 3.94 10^6/uL (4.1-5.3) L 10/15/21 04:45 Hgb 12.9 g/dL (11.7-16.6) 10/15/21 04:45 Hct 38.2 % (42.0-52.0) L 10/15/21 04:45 MCV 97.0 fl (80-94) H 10/15/21 04:45 MCH 32.7 pg (28.0-34.0) 10/15/21 04:45 MCHC 33.8 g/dL (30.0-36.0) 10/15/21 04:45 RDW 13.2 % (12.1-15.1) 10/15/21 04:45 Plt Count 172 10^3/cmm (130-400) 10/15/21 04:45 MPV 9.8 fL (7.4-10.4) 10/15/21 04:45 Neut % (Auto) 72.0 % 10/15/21 04:45 Lymph % (Auto) 14.4 % 10/15/21 04:45 [place] % (Auto) 12.7 % 10/15/21 04:45 Eos % (Auto) 0.0 % 10/15/21 04:45 Baso % (Auto) 0.0 % 10/15/21 04:45 Neut # (Auto) 4.14 10^3/uL (1.8-7.7) 10/15/21 04:45 Lymph # (Auto) 0.8 10^3/uL (0.8-4.8) 10/15/21 04:45 [place] # (Auto) 0.7 10^3/uL (0.2-0.9) 10/15/21 04:45 Eos # (Auto) 0.0 10^3/uL (0.0-0.8) 10/15/21 04:45 Baso # (Auto) 0.0 10^3/uL (0.0-0.1) 10/15/21 04:45 Nucleated RBC % (auto) 0 % 10/15/21 04:45 Nucleated RBCs # 0.0 /100WBC 10/15/21 04:45 D-Dimer 0.44 ug/mIFEU (0-0.59) 10/16/21 04:35 Specimen Type Arterial 10/14/21 04:47 Sample Site Radial, left 10/14/21 04:47 ABG pH 7.44 (7.35-7.45) 10/14/21 04:47 ABG pCO2 44.5 mmHg (35-45) 10/14/21 04:47 ABG pO2 59.2 mmHg (80.0-100.0) L 10/14/21 04:47 ABG HCO3 30.4 mmol/L (22-26) H 10/14/21 04:47 ABG Base Excess 5.4 mmol/L (-2.0-2.0) H 10/14/21 04:47 Enoch Test Pos 10/14/21 04:47 Hematocrit 41.7 % (42-52) L 10/14/21 04:47 O2 Delivery Device Nc 10/14/21 04:47 O2 Liters/Min 3.5 % 10/14/21 04:47 Promotions Producer ID Hensa 10/14/21 04:47 Sodium 140 mmol/L (136-145) 10/15/21 04:45 Potassium 4.2 mmol/L (3.5-5.1) 10/15/21 04:45 Chloride 103 mmol/L (98-107) 10/15/21 04:45 Carbon Dioxide 29 mmol/L (22-29) 10/15/21 04:45 Anion Gap 12.2 (5-19) 10/15/21 04:45 BUN 19 mg/dL (8-23) 10/15/21 04:45 Creatinine 0.4 mg/dL (0.7-1.2) L 10/15/21 04:45 GFR Calculation Not Reportable 10/15/21 04:45 Glucose 144 mg/dL (65-115) H 10/15/21 04:45 POC Glucose 132 mg/dL (70-110) H 10/16/21 06:46 Calculated Osmolality 295 mOsm/kg (285-295) 10/15/21 04:45 Calcium 8.2 mg/dL (8.5-10.5) L 10/15/21 04:45 Phosphorus 2.4 mg/dL (2.5-4.5) L 10/14/21 04:50 Magnesium 2.3 mg/dL (1.7-2.3) 10/14/21 04:50 Total Bilirubin 0.3 mg/dL (0.15-1.2) 10/13/21 12:54 AST 26 U/L (0-40) 10/13/21 12:54 ALT 11 U/L (0-41) 10/13/21 12:54 Alkaline Phosphatase 62 IU/L (40-130) 10/13/21 12:54 Troponin T Baseline 9 ng/L (0-15) 10/13/21 11:10 Troponin T 120 Minute 11.75 ng/L (0-15) 10/13/21 12:54 Delta Troponin T 2.75 ABS# (0-10) 10/13/21 12:54 Troponin T Hi Sens 6Hr 12.12 ng/L (0-15) 10/13/21 17:08 Troponin T Hi Sens 6Hr Delta 3.12 ng/L (0-12) 10/13/21 17:08 C-Reactive Protein 32.2 mg/L (0.0-4.9) H 10/16/21 04:35 NT-Pro-B Natriuret Pep 277 pg/mL (0-450) 10/13/21 17:08 Total Protein 6.1 g/dL (6.6-8.7) L 10/13/21 12:54 Albumin 3.1 g/dL (3.5-5.2) L 10/13/21 12:54 Globulin 3.0 g/dL (1.3-4.6) 10/13/21 12:54 Prostate Specific Ag 33.920 ng/mL (0-4) H 10/13/21 17:08 Procalcitonin 1.48 ng/mL (0-0.5) H 10/14/21 04:50 Urine Color Yellow (Yellow) 10/13/21 13:15 Urine Appearance Clear (CLEAR) 10/13/21 13:15 Urine pH 5 (5-7) 10/13/21 13:15 Ur Specific Rankin 1.015 (1.005-1.030) 10/13/21 13:15 Urine Protein 1+ (Negative) H 10/13/21 13:15 Urine Glucose (UA) Norm (Normal) 10/13/21 13:15 Urine Ketones Negative (Negative) 10/13/21 13:15 Urine Blood 3+ (Negative) H 10/13/21 13:15 Urine Nitrate Negative (Negative) 10/13/21 13:15 Urine Bilirubin 1+ (Negative) H 10/13/21 13:15 Urine Urobilinogen 4 mg/dL (Negative) H 10/13/21 13:15 Ur Leukocyte Esterase Negative (Negative) 10/13/21 13:15 Urine RBC 0-4 /hpf (0-2) H 10/13/21 13:15 Urine WBC 0-4 /hpf (0-5) H 10/13/21 13:15 Ur Squamous Epith Cells 0-4 /hpf (0-5) H 10/13/21 13:15 Amorphous Sediment Not Reportable 10/13/21 13:15 Urine Bacteria None /hpf (NONE) 10/13/21 13:15 Influenza Type A Ag Negative (Negative) 10/13/21 11:12 Influenza Type B Ag Negative (Negative) 10/13/21 11:12 SARS-CoV-2 Ag (Rapid) Positive (Negative) H 10/13/21 11:12 Vitals Last Vital Signs Temp 98.6 F 10/16/21 08:00 Pulse 68 10/16/21 09:56 Resp 16 10/16/21 09:56 BP 140/70 10/16/21 08:00 Pulse Ox 92 10/16/21 09:56 O2 Del Method 10/16/21 09:56 O2 Flow Rate 4 10/16/21 09:56 Discharge Plan Discharge Patient Disposition: Home Condition: Stable Prescriptions: New finasteride 5 mg Tablet 5 mg PO BEDTIME Qty: 90 1RF albuterol sulfate 90 mcg/actuation HFA aerosol inhaler 2 inh inhalation Q8H PRN (Reason: shortness of breath or wheezing) Qty: 8.5 2RF Trelegy Ellipta 100-62.5-25 mcg blister with device 1 inh inhalation DAILY Qty: 60 3RF tamsulosin 0.4 mg capsule 0.4 mg PO DAILY Qty: 90 3RF lisinopril 5 mg tablet 5 mg PO DAILY Qty: 60 3RF Discharge Orders: Discharge Order (Routine); Ordered 10/16/21 Ordered By: Heladio Cee Referrals: Renea Gutiérrez FNP-C [Primary Care Provider] - 2 weeks Danilo Daugherty MD [Physician] - 7-10 days Discharge Diet: Cardiac Discharge Activity: Increase activity as tolerated Patient Instructions: Opioid Safety Discharge Attestations Time Spent in Discharge Care*: less than 30 min Quality Metrics Clinical Quality Measures [ No reported AMI, CVA or VTE this stay] Coding Level of Care Code Acute Chg FW DC note Diagnoses Mild protein-energy malnutrition E44.1 Left renal mass N28.89 Ectasia of artery I77.89 BPH (benign prostatic hyperplasia) N40.0 Weight loss R63.4 Anorexia R63.0 COVID-19 U07.1 Acute respiratory failure with hypoxia J96.01 Hematuria R31.9
--- NOTE | 2021-10-16 11:58 | NM_ITS ---
WS: [id number] NUCLEAR MEDICINE BONE SCAN Radiopharmaceutical: 25.8 Tc-99m MDP mCi IV Injection site: RIGHT wrist Postinjection imaging delay: 1 hr CLINICAL INFORMATION: lytic lesion found in 2019 COMPARISON: CT October 13, 2021 and FINDINGS: Bone lesions: There are no osseous lesions suspicious for metastatic disease. Soft tissue contours: Normal. Kidneys: Normal. Other findings: Degenerative type uptake in both kidneys. Degenerative type uptake both AC joints. NM/NM bone scan whole body* [id number] IMPRESSION: No evidence of osseous metastatic disease.
[2021-10-16 12:01] LABS: Glucose Point of Care 133 mg/dL (70-110)
== END 2021-10-16 15:24 | disposition home or self-care (01) | DRG 177 ==
LOC: ER 15:22 → MEDSURG 16:31
PROVIDERS: Admitting Provider Internal Medicine; Emergency Provider Emergency Medicine; PCP Nurse Practitioner; Visit Provider Internal Medicine
DX: U07.1 COVID-19 (principal); J12.82 Pneumonia due to coronavirus disease 2019; J96.01 Acute respiratory failure with hypoxia; E44.1 Mild protein-calorie malnutrition; J44.9 Chronic obstructive pulmonary disease, unspecified; N40.0 Benign prostatic hyperplasia without lower urinary tract symptoms; N32.0 Bladder-neck obstruction; N28.89 Other specified disorders of kidney and ureter; R31.9 Hematuria, unspecified; R63.0 Anorexia; I44.4 Left anterior fascicular block; E86.0 Dehydration; R63.4 Abnormal weight loss; R30.0 Dysuria; N32.3 Diverticulum of bladder; R97.20 Elevated prostate specific antigen [PSA]; M89.9 Disorder of bone, unspecified; M54.9 Dorsalgia, unspecified; R79.1 Abnormal coagulation profile; K59.00 Constipation, unspecified; I77.810 Thoracic aortic ectasia; R73.9 Hyperglycemia, unspecified; T38.0X5A Adverse effect of glucocorticoids and synthetic analogues, initial encounter; F17.200 Nicotine dependence, unspecified, uncomplicated
CPT/HCPCS: 36415; 36416; 36600; 51798; 71045; 71250; 74176; 76770; 76857; 78306; 80048; 80053; 81001; 82803; 82962; 83735; 83880; 84100; 84145; 84153; 84484; 85025; 85378; 86140; 87426; 87641; 87804; 93005; 94640; 94664; 94760; 96372; 96374; 99285; A9561; J0696; J1100; J1650; J1815; J7626; J8540

== ENCOUNTER → 2021-10-25 15:06 | Outpatient (BNVA) | payer MEDICARE, OTHER, SELFPAY | PROVIDERS: PCP Nurse Practitioner; Visit Provider Urology | DX: N28.89 Other specified disorders of kidney and ureter (principal); R97.20 Elevated prostate specific antigen [PSA] | CPT/HCPCS: 81003; 99203 ==

== ENCOUNTER 2022-01-01 14:02 | Outpatient (CLI) | payer MEDICARE, OTHER, SELFPAY ==
[2022-01-01 15:20] LABS: Prostate Specific AG Urology 8.62 ng/mL (0-4)
== END 2022-01-01 14:03 | disposition home or self-care (01) ==
LOC: LAB 14:02
PROVIDERS: Visit Provider Urology
DX: N40.0 Benign prostatic hyperplasia without lower urinary tract symptoms (principal); R97.20 Elevated prostate specific antigen [PSA]; N28.89 Other specified disorders of kidney and ureter
CPT/HCPCS: 36415; 84153; 99213

== ENCOUNTER 2022-05-14 10:01 | Outpatient (CLI) | payer MEDICARE, OTHER, SELFPAY | END 2022-05-14 10:02 | disposition home or self-care (01) | PROVIDERS: Visit Provider Urology | DX: N40.1 Benign prostatic hyperplasia with lower urinary tract symptoms (principal); R97.20 Elevated prostate specific antigen [PSA]; N28.89 Other specified disorders of kidney and ureter | CPT/HCPCS: 36415; 51798; 84153; 99213 ==

== ENCOUNTER 2022-10-27 10:53 | Observation (INO) | payer MEDICARE, OTHER, SELFPAY ==
[2022-10-27] VITALS (9 sets, daily range): BP systolic 148–162; BP diastolic 71–103; PULSE 73–96; RESP 16–18; TEMP 36.4–36.8; O2SAT 89–97; BMI 19.1
--- NOTE | 2022-10-27 11:00 | CTR_ITS ---
PROCEDURE INFORMATION: Exam: CT Head Without Contrast Exam date and time: 10/27/2022 10:50 AM Age: 77 years old Clinical indication: Stroke-like symptoms; Speech disturbance; Left facial droop; Additional info: Stroke like symptoms TECHNIQUE: Imaging protocol: Computed tomography of the head without contrast. Radiation optimization: All CT scans at this facility use at least one of these dose optimization techniques: automated exposure control; mA and/or kV adjustment per patient size (includes targeted exams where dose is matched to clinical indication); or iterative reconstruction. Other technique: STROKE PROTOCOL was implemented. REPORTING DATA: Count of CT and Cardiac NM exams in prior 12 months: This patient has received 0 known CTs and 0 known cardiac nuclear medicine studies in the 12 months prior to the current study. COMPARISON: No relevant prior studies available. RADIATION DOSE METRICS: Total DLP (mGy-cm): 1006.89 FINDINGS: Brain: There is asymmetric multifocal hypodensity involving the right caudate nucleus, right lentiform nucleus, and right external capsule. No mass effect. No volume loss. There is no acute intracranial hemorrhage. Cerebral ventricles: There is no significant ventricular dilation. The basal cisterns are unremarkable. Paranasal sinuses: The paranasal sinuses are clear. Mastoid air cells: The mastoid air cells are clear. Bones/joints: The pelvis and hips are unremarkable. Soft tissues: The visible extracranial soft tissues are unremarkable. CT/CT head thrombolytic [id number] IMPRESSION: 1. No acute intracranial hemorrhage. 2. Multifocal asymmetric hypodensity in the right basal ganglia consistent with acute or subacute infarction. ASSESSMENT: ASPECTS ([facility] Stroke Program Early CT Score) is 7.
[2022-10-27 11:01] LABS: Glucose Point of Care 121 mg/dL (70-110)
--- NOTE | 2022-10-27 11:07 | W.ED.NEUROSD ---
HPI - Neuro Symptoms/Deficit General: Chief Complaint: Neuro Symptoms/Deficit Stated Complaint: STROKE LIKE SYMPTOMS Time Seen by Provider: 10/27/22 11:02 Source: patient and EMS Mode of arrival: EMS Limitations: no limitations History of Present Illness: This patient was transported to the emergency department by EMS. EMS was called by family after they noted approximately 8 AM that he appeared to have some alteration in his speech fluency as well as some left-sided facial drooping. They last saw him at 10:30 PM last evening and he was in his normal state of health. He states that he awoke at 5 AM to go to the bathroom and then noted that he had left leg weakness. This caused him to fall striking his left ribs against a rocking chair. He did not hit his head or suffer loss of conscious or any other injury. It also should be noted that he had previous left rib fractures earlier this year. He denies headache fever recent illness etc. He is aware that his speech is different than usual. He is never experienced these symptoms previously. He is a tobacco user but denies alcohol use. Location: speech and left face Severity: moderate Quality: weak Associated symptoms: Deny chest pain, headache(s), nausea or vomiting Review of Systems Const: Denies: fever(s) or chills Eyes: Denies: change in vision ENMT: Denies: throat pain or odynophagia Card: Denies: chest pain, palpitations or irregular heart rhythm Resp: Denies: dyspnea, productive cough or non-productive cough GI: Denies: abdominal pain, nausea, vomiting or diarrhea : Denies: flank pain, difficulty urinating or dysuria Musc: Denies: neck pain, back pain, extremity pain or extremity swelling Skin/Breast: Denies: rash Neuro: Reports: weakness in extremities and Slurred speech present; Denies: headache(s) PFSH ED PFSH: Medical History BPH loc w urin obs/LUTS COPD (chronic obstructive pulmonary disease) 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 No significant past medical history Renal mass since 2019 Smoker Surgical History History of surgery on lower extremity No significant past surgical history Family History Denies family history of Cancer Social History Smoking and tobacco status: current every day smoker Alcohol intake: current Alcohol intake frequency: few times a month Lives independently: Yes Marital status: Current occupational status: retired NIH stroke score NIHSS: Level Of Consciousness - 1a: 0 Level Of Consciousness Questions - 1b: Both Correct Level Of Consciousness Commands - 1c: Both Correct Best Gaze - 2: Normal Visual Andrew - 3: No Visual Loss Facial Palsy - 4: Partial Paralysis Motor Arm Right - 5: No Drift Motor Arm Left - 5: No Drift Motor Leg Right - 6: No Drift Motor Leg Left - 6: No Drift Limb Ataxia - 7: Absent Sensory - 8: Normal Best Language - 9: No Aphasia Dysarthia - 10: Mild/Moderate Dysarthia Extinction And Inattention - 11: 0 Score: Total Score: 3 Physical Exam Narrative: EXAM NARRATIVE: Patient makes good eye contact speech is goal-directed is slightly dysarthric. Does have some left facial asymmetry. Const: COMMON NORMALS: no acute distress, average body habitus, patient oriented x3 and alert GENERAL APPEARANCE: cooperative and disheveled ORIENTATION/CONSCIOUSNESS: Yes oriented to place HENMT: COMMON NORMALS: normocephalic, Normal nasal mucous membranes and turbinates present, moist oral mucous membranes and oropharynx normal HEAD & SCALP: normocephalic FACE & SINUS: face not symmetric (Left facial droop) NOSE: Normal nasal mucous membranes and turbinates present Eye: COMMON NORMALS: Equal, round and reactive pupils present, EOMs intact bilaterally and conjunctivae normal CONJUNCTIVA: Yes conjunctivae normal PUPIL: Yes Equal, round and reactive pupils present Neck/C-Spine: COMMON NORMALS: full ROM, no lymphadenopathy, supple and Thyroid normal THYROID: Thyroid normal Chest: COMMONS NORMALS: normal inspection of the chest and normal palpation of entire chest wall Resp: COMMON NORMALS: normal respiratory effort, No retractions, No use of accessory muscles and clear to auscultation bilaterally AUSCULTATION: clear to auscultation bilaterally Cardio: COMMON NORMALS: regular rate, regular rhythm, No murmurs present (Cardio) and Peripheral pulses 2+ throughout RATE: regular rate RHYTHM: regular rhythm PERIPHERAL PULSES: Peripheral pulses 2+ throughout GI: COMMON NORMALS: Normal to inspection, nondistended, normoactive bowel sounds present, Soft to palpation and non-tender PALPATION: Yes Soft to palpation : COMMON NORMALS: Yes no CVA tenderness BLADDER/KIDNEY EXAM: Yes no CVA tenderness Back/Pelvis: COMMON NORMALS: no CVA tenderness, thoracic and lumbar spine normal to inspection, no thoracic nor lumbar tenderness, thoraco-lumbar ROM normal and straight leg raise negative bilaterally Extremity: COMMON NORMALS: normal to inspection, full ROM, capillary refill normal, no calf tenderness and no pedal edema Neuro: COMMON NORMALS: patient oriented x3, moves all extremities, no sensory deficits noted and deep tendon reflexes 2+ bilaterally SENSORIUM/ORIENTATION: Yes alert and Yes oriented to place CRANIAL NERVES: Yes CN VII (facial) Laterality: left COORDINATION/BALANCE: liroeg-dz-vlyg test normal and sktp-wb-qemi test normal COORDINATION: uavkel-lr-smht test normal and krxc-lm-frdq test normal Psych: COMMON NORMALS: mental status grossly normal, Normal thought process present and cooperative THOUGHT PROCESS: Normal thought process present Skin: COMMON NORMALS: no rashes or lesions noted, no wounds and turgor normal GENERAL SKIN EXAM: no rashes or lesions noted and turgor normal Course Reevaluation(s): Reevaluation #1: Patient remains clinically stable. He has findings on his CT scan consistent with his clinical picture but again not a candidate for thrombolytic therapy. Will be admitted to the hospitalist service for usual stroke care and evaluation. Time: 12:13 Consultations: Consultation #1: Neurologist Dr. Garcia is present in the emergency department consulting on this patient. We reviewed CT scan which suggest subacute possibly acute hypodensity in the right basal ganglia consistent with his clinical picture. We will going proceed with CTA. This patient given his last known well time of 10:30 PM put him at 13 hours since last well-known time and certainly likely at least 4 and half hours after onset of symptoms is not a thrombolytic candidate at this time. Time: :23 Consultation #2: Discussed with Dr. Mckinley who agreed to accept the patient for admission Time: 12:13 Vital Signs: Vital signs: Vital Signs Temperature 98.3 F 10/27/22 10:55 Pulse Rate 94 10/27/22 11:16 Respiratory Rate 18 10/27/22 11:16 Blood Pressure 148/83 10/27/22 11:16 Pulse Oximetry 93 10/27/22 11:16 Oxygen Delivery Me thod Room Air 10/27/22 10:55 MDM - Neuro Symptoms/Deficit Medical Decision Making 77-year-old gentleman with last known well time of 10:30 PM who made his way to the emergency department via EMS. He apparently awoke early this morning and noted some left leg dysfunction resulting in a fall striking his left chest but no other head trauma etc. Family woke approximately 8 AM and noted some facial asymmetry and dysarthria and called EMS and eventually he was persuaded to come to the emergency department. Initial evaluation reveals him to be alert with notable left facial asymmetry and some dysarthria but otherwise no focal findings and an NIH consistent with a score of 3. Imaging was obtained which revealed right basal ganglia stroke anatomically consistent with his presentation. No other acute findings. His blood pressure and other vital signs were normal. Neurology was present and consulted and reviewed care and made recommendations. Patient's had a acute or subacute nonhemorrhagic infarct of the right basal ganglia. He is not a thrombolytic candidate given his time of his unknown of onset as well as his risk benefit ratio at this time. This was reviewed with the senior treasury consultant as well as with the patient. The patient is being admitted to the hospitalist service in stable condition for additional work-up and treatment. Lab Data I reviewed the patient's lab results. 10/27/22 11:00 10/27/22 11:[address] 10/27/22 11:00 IMPRESSION: 1. No acute intracranial hemorrhage. 2. Multifocal asymmetric hypodensity in the right basal ganglia consistent with acute or subacute infarction. ASSESSMENT: ASPECTS ([facility] Stroke Program Early CT Score) is 7. ADDENDUM: 10/27/22 1121 THIS REPORT CONTAINS FINDINGS THAT MAY BE CRITICAL TO PATIENT CARE. The findings were verbally communicated via telephone conference with EBONI GARCIA at 11:19 AM CDT on 10/27/2022. The findings were acknowledged and understood. Laboratory Results WBC 11.0 10^3/uL (4.0-10.0) H 10/27/22 11:00 RBC 4.68 10^6/uL (4.1-5.3) 10/27/22 11:00 Hgb 15.5 g/dL (11.7-16.6) 10/27/22 11:00 Hct 46.8 % (42.0-52.0) 10/27/22 11:00 MCV 100.0 fl (80-94) H 10/27/22 11:00 MCH 33.1 pg (28.0-34.0) 10/27/22 11:00 MCHC 33.1 g/dL (30.0-36.0) 10/27/22 11:00 RDW 13.5 % (12.1-15.1) 10/27/22 11:00 Plt Count 210 10^3/cmm (130-400) 10/27/22 11:00 MPV 9.9 fL (7.4-10.4) 10/27/22 11:00 Neut % (Auto) 77.1 % 10/27/22 11:00 Lymph % (Auto) 15.1 % 10/27/22 11:00 [place] % (Auto) 6.4 % 10/27/22 11:00 Eos % (Auto) 0.6 % 10/27/22 11:00 Baso % (Auto) 0.4 % 10/27/22 11:00 Neut # (Auto) 8.45 10^3/uL (1.8-7.7) H 10/27/22 11:00 Lymph # (Auto) 1.7 10^3/uL (0.8-4.8) 10/27/22 11:00 [place] # (Auto) 0.7 10^3/uL (0.2-0.9) 10/27/22 11:00 Eos # (Auto) 0.1 10^3/uL (0.0-0.8) 10/27/22 11:00 Baso # (Auto) 0.0 10^3/uL (0.0-0.1) 10/27/22 11:00 Nucleated RBC % (auto) 0 % 10/27/22 11:00 Nucleated RBCs # 0.0 /100WBC 10/27/22 11:00 PT 13.20 SECONDS (12.1-14.9) 10/27/22 11:00 INR 0.97 (0.8-1.2) 10/27/22 11:00 APTT 26.1 SECONDS (23.9-36.7) 10/27/22 11:00 Sodium 144 mmol/L (136-145) 10/27/22 11:00 Potassium 4.1 mmol/L (3.5-5.1) 10/27/22 11:00 Chloride 106 mmol/L (98-107) 10/27/22 11:00 Carbon Dioxide 28 mmol/L (22-29) 10/27/22 11:00 Anion Gap 14.1 (5-19) 10/27/22 11:00 BUN 17 mg/dL (8-23) 10/27/22 11:00 Creatinine 0.6 mg/dL (0.7-1.2) L 10/27/22 11:00 GFR Calculation Not Reportable 10/27/22 11:00 Glucose 138 mg/dL (65-115) H 10/27/22 11:00 POC Glucose 121 mg/dL (70-110) H 10/27/22 10:57 Calculated Osmolality 302 mOsm/kg (285-295) H 10/27/22 11:00 Calcium 9.1 mg/dL (8.5-10.5) 10/27/22 11:00 Total Bilirubin 0.5 mg/dL (0.15-1.2) 10/27/22 11:00 AST 12 U/L (0-40) 10/27/22 11:00 ALT 9 U/L (0-41) 10/27/22 11:00 Alkaline Phosphatase 115 U/L (40-130) 10/27/22 11:00 Total Protein 6.7 g/dL (6.6-8.7) 10/27/22 11:00 Albumin 4.0 g/dL (3.5-5.2) 10/27/22 11:00 Globulin 2.7 g/dL (1.3-4.6) 10/27/22 11:00 EKG Data EKG 1: I personally reviewed and interpreted this EKG as follows: Interpretation: Contemporaneous review of EKG reveals ventricular rate of 94 bpm consistent with sinus rhythm. TX interval, QRS duration, corrected QT interval are normal. Borderline leftward axis suggestive of possible left anterior Heema block however no acute ST-T wave changes are noted. There is some baseline irritability noted in the limb leads. Discharge Plan Discharge Patient Disposition: Admitted As Inpatient Clinical Impression: Infarction of right basal ganglia Condition: Stable Prescriptions: No Action finasteride 5 mg tablet 5 mg PO BEDTIME Qty: 90 3RF tamsulosin 0.4 mg capsule 0.4 mg PO DAILY Qty: 90 3RF albuterol sulfate 90 mcg/actuation HFA aerosol inhaler 2 inh inhalation Q8H PRN (Reason: shortness of breath or wheezing) Qty: 8.5 2RF Coding Level of Care Code ED Fabrication Specialist for Chg Torri
[2022-10-27 11:23] LABS: Basophils % 0.4 %; Eosinophils # 0.1 10^3/uL (0.0-0.8); Eosinophils % 0.6 %; Hematocrit 46.8 % (42.0-52.0); Hemoglobin 15.5 g/dL (11.7-16.6); Lymphocytes # 1.7 10^3/uL (0.8-4.8); Lymphocytes % 15.1 %; Mean Corpuscular HGB Conc 33.1 g/dL (30.0-36.0); Mean Corpuscular Hemoglobin 33.1 pg (28.0-34.0); Mean Platelet Volume 9.9 fL (7.4-10.4); Monocytes # 0.7 10^3/uL (0.2-0.9); Monocytes % 6.4 %; Neutrophils # 8.45 10^3/uL (1.8-7.7); Neutrophils % 77.1 %; Nucleated Red Blood Cells % 0 %; Platelet Count 210 10^3/cmm (130-400); Red Blood Count 4.68 10^6/uL (4.1-5.3); Red Cell Distribution Width 13.5 % (12.1-15.1)
--- NOTE | 2022-10-27 11:23 | ECG_ITS ---
[facility] Test Date: 2022-10-27 Pat Name: Jesus Posadas Department: Room: Gender: Male Team Psychologist: : 1945 Requested By: Narayan Garcia Order Number: [id number] Gabby MD: Juan C Fernandez M.D. Measurements Intervals [place] Rate: 94 P: 89 AK: 185 QRS: -40 QRSD: 93 T: 37 QT: 364 QTc: 457 Interpretive Statements SINUS RHYTHM LEFT AXIS DEVIATION [QRS AXIS < -30] Compared to ECG 10/13/2021 16:40:29 Left-axis deviation now present Left anterior fascicular block no longer present Myocardial infarct finding no longer present Electronically Signed On 10-28-2022 11:26:14 CDT by Juan C Fernandez M.D. [id number]
--- NOTE | 2022-10-27 11:24 | CTR_ITS ---
PROCEDURE INFORMATION: Exam: CTA Head With Contrast, Arteriography Exam date and time: 10/27/2022 12:23 PM Age: 77 years old Clinical indication: Other: Acute infarct right basal ganglia TECHNIQUE: Imaging protocol: Computed tomographic angiography of the head with contrast. Exam focused on the arteries. 3D rendering (Not supervised by radiologist): MIP and/or 3D reconstructed images were created by the technologist. Radiation optimization: All CT scans at this facility use at least one of these dose optimization techniques: automated exposure control; mA and/or kV adjustment per patient size (includes targeted exams where dose is matched to clinical indication); or iterative reconstruction. Contrast material: OMNI 350; Contrast volume: 100 ml; Contrast route: INTRAVENOUS (IV); REPORTING DATA: Count of CT and Cardiac NM exams in prior 12 months: This patient has received 0 known CTs and 0 known cardiac nuclear medicine studies in the 12 months prior to the current study. COMPARISON: CT head thrombolytic [id number] 10/27/2022 10:50 AM RADIATION DOSE METRICS: Total DLP (mGy-cm): 438.33 FINDINGS: ANTERIOR CIRCULATION: Right internal carotid artery: There is mild calcific plaque in the cavernous portion of the right internal carotid artery without significant stenosis. Right middle cerebral artery: No occlusion or significant stenosis. No aneurysm. Right anterior cerebral artery: No occlusion or significant stenosis. No aneurysm. Left internal carotid artery: There is mild calcific plaque in the cavernous portion of the left internal carotid artery without significant stenosis. Left middle cerebral artery: No occlusion or significant stenosis. No aneurysm. Left anterior cerebral artery: No occlusion or significant stenosis. No aneurysm. POSTERIOR CIRCULATION: Right vertebral artery: No occlusion or significant stenosis. No aneurysm. Left vertebral artery: No occlusion or significant stenosis. No aneurysm. Basilar artery: No occlusion or significant stenosis. No aneurysm. Right posterior cerebral artery: No occlusion or significant stenosis. No aneurysm. Left posterior cerebral artery: No occlusion or significant stenosis. No aneurysm. Brain: There is no pathologic enhancement of the brain. There is no significant mass effect or midline shift. There is multifocal hypodensity in the right basal ganglia. Cerebral ventricles: There is no significant ventricular dilation. The basal cisterns are unremarkable. Mastoid air cells: The mastoid air cells are clear. Paranasal sinuses: There is mucosal thickening in the ethmoid air cells. There is no fluid in the paranasal sinuses to suggest acute sinusitis. Bones/joints: The calvarium is intact. Soft tissues: The visible extracranial soft tissues are unremarkable. PROCEDURE INFORMATION: Exam: CTA Neck With Contrast Exam date and time: 10/27/2022 12:23 PM Age: 77 years old Clinical indication: Other: Acute infarct right basal ganglia TECHNIQUE: Imaging protocol: Computed tomographic angiography of the neck with contrast. 3D rendering (Not supervised by radiologist): MIP and/or 3D reconstructed images were created by the technologist. Radiation optimization: All CT scans at this facility use at least one of these dose optimization techniques: automated exposure control; mA and/or kV adjustment per patient size (includes targeted exams where dose is matched to clinical indication); or iterative reconstruction. Contrast material: OMNI 350; Contrast volume: 100 ml; Contrast route: INTRAVENOUS (IV); REPORTING DATA: Count of CT and Cardiac NM exams in prior 12 months: This patient has received 0 known CTs and 0 known cardiac nuclear medicine studies in the 12 months prior to the current study. COMPARISON: NM bone scan whole body* [id number] 10/16/2021 11:58 AM RADIATION DOSE METRICS: Total DLP (mGy-cm): 438.33 FINDINGS: Right common carotid artery: No stenosis. No dissection or occlusion. Right internal carotid artery: There is mild atherosclerotic disease at the origin of the right internal carotid artery without stenosis. Right external carotid artery: No occlusion or stenosis of the origin. Left common carotid artery: No stenosis. No dissection or occlusion. Left internal carotid artery: There is mild atherosclerotic disease at the origin of the left internal carotid artery without stenosis. Left external carotid artery: No occlusion or stenosis of the origin. Right vertebral artery: No stenosis. No dissection or occlusion. Left vertebral artery: No stenosis. No dissection or occlusion. Right subclavian artery: There is mild calcific plaque without significant stenosis in the proximal right subclavian artery. Left subclavian artery: There is mild calcific plaque without significant stenosis in the proximal left subclavian artery. Aorta: There is moderate aortic atherosclerotic disease. Other arteries: The origin of the right innominate artery is incompletely imaged. Soft tissues: Soft tissues in the neck and thoracic inlet are unremarkable. Bones/joints: There is moderate degenerative disc disease in the cervical spine. There is grade 1 degenerative retrolisthesis of C3 on C4 associated with severe disc narrowing and prominent uncovertebral osteophytes. Lungs: There is moderate upper lung predominant centrilobular emphysema. CT/CT angio headneck* [id number] IMPRESSION: 1. No arterial stenosis, occlusion or aneurysm. 2. Multifocal hypodensity in the right basal ganglia without mass effect. Possible acute or subacute infarction. IMPRESSION: 1. No arterial stenosis, occlusion or dissection. 2. Incidental findings above. REFERENCES: NASCET CRITERIA. The degree of stenosis in the cervical segment of the internal carotid artery is based on NASCET criteria. Normal is no stenosis. Mild is less than 50% stenosis. Moderate is 50-69% stenosis. Severe is 70% to 99% stenosis. Total occlusion is no detectable patent lumen.
[2022-10-27 11:29] LABS: INR 0.97 (0.8-1.2); Partial Thromboplastin Time 26.1 SECONDS (23.9-36.7)
[2022-10-27 12:02] LABS: Alanine Aminotransferase 9 U/L (0-41); Anion Gap 14.1 (5-19); Aspartate Amino Transferase 12 U/L (0-40); Blood Urea Nitrogen 17 mg/dL (8-23); Calcium 9.1 mg/dL (8.5-10.5); Carbon Dioxide 28 mmol/L (22-29); Chloride 106 mmol/L (98-107); Glucose 138 mg/dL (65-115); Osmolality Calculated 302 mOsm/kg (285-295); Potassium 4.1 mmol/L (3.5-5.1); Sodium 144 mmol/L (136-145); Total Bilirubin 0.5 mg/dL (0.15-1.2); Total Protein 6.7 g/dL (6.6-8.7)
[2022-10-27 12:03] LABS: Alkaline Phosphatase 115 U/L (40-130); Globulin 2.7 g/dL (1.3-4.6)
--- NOTE | 2022-10-27 12:05 | PM.CONSULT ---
Providers/Reason For Consult Consulting Physician/Specialty*: Joni Garcia MD neurology and epilepsy Reason for Consult*: Code stroke emergency department bed 11 and critical care note History of Present Illness History of Present Illness Jesus Posadas is a 77 year old male with a history of thoracic abdominal aortic aneurysm, benign prostate hypertrophy, and COVID-19 infection in October 2021. The patient also reports history of right leg fracture September 2022 after falling off of a horse with left rib fractures. According to the patient's family, the patient went to bed on 10/26/2022 at 10:30 PM and woke up at 5 AM on 10/27/2022 to go to the bathroom and his left leg gave way and he fell in the hallway. The patient was found down by his and was displaying left-sided weakness involving his face arm and leg. The patient was brought to the hospital at [facility] and transported to emergency department room 11. Head CT scan was obtained and revealed asymmetric multifocal hypodensity involving the right caudate nucleus, right lentiform nucleus, and right external capsule. No mass effect. CT scan also revealed cortical atrophy. Since the patient's last known well was 10:30 PM on 10/26/2022 and code stroke was initiated at 10:35 AM on 10/27/2022, and since the patient has history of thoracic abdominal aortic aneurysm, the patient was not a candidate for tPA and no tPA was administered. CT angiogram was ordered to assess for intracranial thrombosis to determine if patient is a candidate for thrombectomy. NIH score = 3. Past medical history: Thoracic abdominal aortic aneurysm Prostate hypertrophy Right leg fracture with left rib fractures related to a fall from a horse September 2022 COVID-19 infection October 2021 Drug allergies: None Current Home medications: Finasteride 5 mg p.o. nightly Tamsulosin 0.4 mg p.o. daily Albuterol multidose inhaler 2 inhalations every 8 hours as needed for shortness of breath or wheezing Habits: Patient smokes 5 cigarettes/day and admits to occasional alcohol use Family history: Negative for strokes Occupation: [employer] Review of Systems General: Reports: 10 or more systems reviewed and unremarkable except in HPI and below Card: Reports: other (Thoracic aortic aneurysm) Musc: Reports: other (History of left rib fracture and complaints of left rib pain) Neuro: Reports: weakness in extremities, Slurred speech present and other (Left facial weakness) Medications/Allergies Home Medications Medication Instructions Recorded Confirmed Last Taken Type albuterol sulfate 90 mcg/actuation 2 inh inhalation Q8H PRN shortness 10/16/21 10/27/22 Unknown Rx aerosol inhaler of breath or wheezing #8.5 grams finasteride 5 mg tablet 5 mg PO BEDTIME #90 tabs 01/01/22 10/27/22 10/26/22 Rx tamsulosin 0.4 mg capsule 0.4 mg PO DAILY #90 caps 01/01/22 10/27/22 10/26/22 Rx Allergies Allergy/AdvReac Type Severity Reaction Status Date / Time No Known Allergies Allergy Verified 05/14/22 12:54 PFSH Acute PFSH: Medical History BPH loc w urin obs/LUTS COPD (chronic obstructive pulmonary disease) 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 No significant past medical history Renal mass since 2018 Smoker Surgical History History of surgery on lower extremity No significant past surgical history Family History Denies family history of Cancer Social History Smoking and tobacco status: current every day smoker Alcohol intake: current Alcohol intake frequency: few times a month Lives independently: Yes Marital status: Current occupational status: retired Vitals/I&O/Wt Last Vital Signs Temp 98.3 F 10/27/22 10:55 Pulse 94 10/27/22 11:16 Resp 18 10/27/22 11:16 BP 148/83 10/27/22 11:16 Pulse Ox 93 10/27/22 11:16 O2 Del Method Room Air 10/27/22 10:55 Weight last 48 hrs Weight 145 lb Physical Exam Narrative: NIH score = 3 secondary to left lower facial weakness and slurred speech Blood pressure 159/103 heart rate 96 O2 saturations 94% on room air The patient is alert and oriented x3. Head atraumatic. Neck supple. Cranial nerves II through XII revealed right lower facial weakness. Other cranial nerves were intact. Extraocular movements intact. Speech mildly dysarthric. Patient follows commands. Motor testing 5/5 bilaterally. There was no ataxia on [id number] or [id number]-[id number]-[id number] maneuver. Sensory examination was intact to touch, pinprick and there was no extinction on double sensory stimulation. Deep tendon reflex revealed plantar flexor responses bilaterally. There was no clonus. Throat clear. Lungs clear. Heart regular rhythm and rate. Abdomen soft bowel sounds positive. Extremities were negative for clubbing cyanosis or edema Data 10/27/22 11:00 10/27/22 11:00 A&P Assessment and plan (1) Infarction of right basal ganglia: Impression: 1. Right basal ganglia stroke with residual dysarthria and left lower facial weakness 2. Thoracic aortic aneurysm 3. History of right leg fracture September 2022 and left rib fractures after falling off of a horse 4. Benign prostate hypertrophy Plan: 1. CT angiogram of the head and neck to assess for thrombus and to determine if patient is a candidate for thrombectomy 2. Stroke work-up and treatment per NIH protocol and start aspirin 325 mg p.o. every morning with food and cholesterol lowering agent per NIH stroke protocol 3. Recommend cardiology evaluation for history of thoracic aortic aneurysm Consult Attestations Medical Necessity Statement: Patient evaluated by neurology for code stroke emergency room bed 11 and for critical care Coding Level of Care Code 34353 Diagnoses Infarction of right basal ganglia I63.9 Time Spent (min) 45
--- NOTE | 2022-10-27 12:12 | P.HP_ITS ---
Providers/Chief Complaint Chief Complaint: STROKE LIKE SYMPTOMS History of Present Illness Jesus Posadas is a 77 year old male with past medical history of COPD, BPH, COVID-19 last year, thoracic aortic abdominal aneurysm, left renal mass was brought into the ER today as he was found down on the ground. According to the patient's family, the patient went to bed on 10/26/2022 at 10:30 PM and woke up at 5 AM on 10/27/2022 to go to the bathroom and his left leg gave way and he fell in the hallway.? The patient was found down by his and was displaying left- sided weakness involving his face arm and leg. Patient was brought to the ER at around 11 AM. Patient was seen by neurology and was deemed not a good candidate for tPA. On examination patient was lying comfortably in bed, awake and alert without any nausea or vomiting. Denies any headache. Family at bedside. Review of Systems General: Reports: 10 or more systems reviewed and unremarkable except in HPI and below Const: Denies: fever(s), chills, body aches, change in appetite, change in weight, malaise, night sweats, diaphoresis, change in sleep pattern, daytime sleepiness or snoring Eyes: Denies: change in vision, blurry vision, photophobia, eye discomfort or eye discharge ENMT: Denies: throat pain, enlarged tonsils, hoarseness, mouth pain, oral sores, dry mouth, tinnitus, nasal congestion or post nasal drip Card: Denies: chest pain, palpitations, irregular heart rhythm, edema, swelling of feet/ankles, lightheadedness, syncope, pre-syncope, dyspnea on exertion, orthopnea, leg pain with exertion or acrocyanosis Resp: Denies: dyspnea, productive cough, non-productive cough, wheezing, stridor, pain on inspiration, change in phlegm color, hemoptysis or chest congestion GI: Denies: abdominal pain, nausea, vomiting, hematemesis, coffee ground em esis, dysphagia, heartburn, diarrhea, constipation, bloating, GI cramping, change in bowel habits, pain on defecation, hematochezia or melena : Denies: flank pain, difficulty urinating, dysuria, urinary frequency, urinary urgency, urinary hesitancy, urinary dribbling, difficulty starting urination, change in urine stream, nocturia or hematuria Musc: Denies: neck pain, back pain, extremity pain, joint pain, joint swelling, joint redness, joint stiffness or limited range of motion Neuro: Denies: headache(s), numbness in extremities, weakness in extremities, sensory changes, lack of coordination, difficulty walking, frequent falls, dizziness, vertigo, confusion, Slurred speech present, difficulty communicating thoughts or seizure-like activity Psych: Denies: anxiety, depression, mood swings, panic attacks, hopelessness or irritability Endo: Denies: polyuria, polydipsia, tired all the time, cold intolerance, excessive sweating, flushing or heat intolerance Asif/Lymph: Denies: easy bruising or easy bleeding All/Imm: Denies: tongue swelling, facial swelling or acute wheezing Medications/Allergies Home Medications Medication Instructions Recorded Confirmed Last Taken Type albuterol sulfate 90 mcg/actuation 2 inh inhalation Q8H PRN shortness 10/16/21 10/27/22 Unknown Rx aerosol inhaler of breath or wheezing #8.5 grams finasteride 5 mg tablet 5 mg PO BEDTIME #90 tabs 01/01/22 10/27/22 10/26/22 Rx tamsulosin 0.4 mg capsule 0.4 mg PO DAILY #90 caps 01/01/22 10/27/22 10/26/22 Rx Allergies Allergy/AdvReac Type Severity Reaction Status Date / Time No Known Allergies Allergy Verified 05/14/22 12:54 PFSH Acute PFSH: Medical History (Updated 10/27/22 @ 13:39 by Karan Malik MD) Anorexia BPH loc w urin obs/LUTS COPD (chronic obstructive pulmonary disease) COVID-19 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 No significant past medical history Renal mass since 2019 Smoker Weight loss Surgical History History of surgery on lower extremity No significant past surgical history Family History Denies family history of Cancer Social History (Updated 10/27/22 @ 14:29 by Karan Malik MD) Smoking and tobacco status: current every day smoker cigarettes Years cigarett es smoked: 50 Number of cigarettes per day: 6-10 Alcohol intake: current Alcohol intake frequency: few times a month Substance/Drug Use: never Caregiver/support person: Yes Lives independently: Yes Household members: spouse Housing: House Marital status: Current occupational status: retired Vitals/I&O/Wt Last Vital Signs Temp 98.3 F 10/27/22 10:55 Pulse 94 10/27/22 11:16 Resp 18 10/27/22 11:16 BP 148/83 10/27/22 11:16 Pulse Ox 93 10/27/22 11:16 O2 Del Method Room Air 10/27/22 10:55 Weight last 48 hrs Weight 65.771 kg Physical Exam Narrative: General: No acute distress, AO x3 HEENT: PERRLA, pupils bilaterally equal and reactive Chest: Normal vesicular breath sounds, no added sounds, equal good air entry bilaterally CVS: S1-S2 regular, no murmurs, no tachycardia, no gallops, no rubs Abdomen: Soft, nontender, no organomegaly, bowel sounds present Neuro: No focal deficits, no facial deformity, AO x3, Cranial nerves II through XII revealed right lower facial weakness.? Other cranial nerves were intact.? Extraocular movements intact.? Speech mildly dysarthric.? Patient follows commands.? Motor testing 5/5 bilaterally.? There was no ataxia on ubrjca-ewga-fyqupa or [id number]-jthp-[id number] maneuver.? Sensory examination was intact to touch, pinprick and there was no extinction on double sensory stimulation.? Deep tendon reflex revealed plantar flexor responses bilaterally.? Data 10/27/22 11:00 10/27/22 11:00 A&P Assessment and plan (1) Infarction of right basal ganglia: Appreciate neurology recommendations. Deemed not a candidate for tPA. Permissible hypertension. Check CTA head and neck, echocardiogram. PT/OT/speech evaluation. Advance diet as per speech evaluation. Telemetry. Aspirin 81 mg daily, statin 20 mg daily. Check A1c, lipid panel. Further changes in treatment as per results of the tests. Plan Check iron panel, vitamin B12, folate levels, TSH. CODE STATUS: DPOA will be provided. Discussed in detail. Patient would wants to remain full code. Advance diet as per speech evaluation Heparin 5000 every 12 hourly. Famotidine for PUD prophylaxis. Attestations Medical Necessity Statement*: Admission under observation for further evaluation and management of right basal ganglia infarct Diagnoses Infarction of right basal ganglia I63.9
--- NOTE | 2022-10-27 12:17 | USCV_ITS ---
Jesus Posadas Age: 77 Gender: M : 1945 Exam Date: 10/27/2022 19:08 Ordering Phys: Karan Malik MD Technologist: LAKIA Exam Location: [facility] [place] Indication: stroke BP: / HR: 120 Rhythm: Sinus Technical Quality: Suboptimal MEASUREMENTS (Male / Female) Normal Values 2D ECHO LV Diastolic Diameter PLAX 5.7 cm 4.2 - 5.9 / 3.9 - 5.3 cm LV Systolic Diameter PLAX 4.4 cm IVS Diastolic Thickness 0.7 cm 0.6 - 1.0 / 0.6 - 0.9 cm IVS Systolic Thickness 1.0 cm LVPW Diastolic Thickness 0.7 cm 0.6 - 1.0 / 0.6 - 0.9 cm LVPW Systolic Thickness 1.1 cm LVOT Diameter 2.5 cm LV Ejection Fraction 2D Teich 44.2 % LV Ejection Fraction MOD 2C 42.1 % LV Ejection Fraction 2C AL 41.4 % LA Diameter 3.1 cm IVC Diameter 1.6 cm M-MODE Aortic Annulus Diameter 3.8 cm LA Ao Ratio MM 0.9 MV E Point Septal Separation 0.5 cm DOPPLER MV Area PHT 3.9 cm squared Mitral E to A Ratio 0.7 MV E' Velocity 37.0 cm/s Mitral E to MV E' Ratio 10.0 Mitral E to LV E' Lateral Ratio 9.8 Mitral E to LV E' Septal Ratio 10.4 TR Peak Velocity 214.0 cm/s TR Peak Gradient 18.3 mmHg TV Peak E Velocity 55.0 cm/s Right Atrial Pressure 3.0 mmHg Pulmonary Artery Systolic Pressu 21.3 mmHg PV Peak Velocity 62.0 cm/s FINDINGS Left Ventricle Normal left ventricular size, systolic function and wall thickness, with no regional wall motion abnormalities. Grade I/IV diastolic dysfunction (abnormal relaxation filling pattern), normal to mildly elevated filling pressures. Left ventricular ejection fraction is estimated at 60 %. Right Ventricle Normal right ventricular size and systolic function. Normal right ventricular systolic pressure. Right Atrium The right atrium is normal in size. Left Atrium The left atrium is normal in size. Mitral Valve Structurally normal mitral valve. Mild mitral valve regurgitation. Aortic Valve Structurally normal trileaflet aortic valve. No aortic valve stenosis. Trace aortic valve regurgitation. Tricuspid Valve Structurally normal tricuspid valve. Trace tricuspid valve regurgitation. Pulmonic Valve Pulmonic valve not well visualized. Pericardium Normal pericardium without effusion. Aorta Normal ascending aorta dimension. IVC The inferior vena cava appears normal. CONCLUSIONS Normal left ventricular size, systolic function and wall thickness, with no regional wall motion abnormalities. Grade I/IV diastolic dysfunction (abnormal relaxation filling pattern), normal to mildly elevated filling pressures. Left ventricular ejection fraction is estimated at 60 %. Structurally normal mitral valve. Mild mitral valve regurgitation. Structurally normal trileaflet aortic valve. No aortic valve stenosis. Trace aortic valve regurgitation. There are no prior echocardiogram studies to compare. Dr. Juan C Fernandez MD (Electronically Signed) Final Date: 28 October 2022 09:39 S
[2022-10-27] MEDS: iohexol 350 mg/mL 500 mL Btl (per mL) IV (12:25)
[2022-10-27] MEDS: aspirin 81 mg Chew Tablet 324 MG PO (12:39)
--- NOTE | 2022-10-27 12:50 | XRR_ITS ---
PROCEDURE INFORMATION: Exam: XR Chest Exam date and time: 10/27/2022 12:53 PM Age: 77 years old Clinical indication: Pain; Chest pressure TECHNIQUE: Imaging protocol: Radiologic exam of the chest. Views: 1 view. COMPARISON: CR XR chest 2V* [id number] 09/04/2022 3:40 PM FINDINGS: Lungs: There is no consolidation. Pleural spaces: The right lateral costophrenic sulcus is blunted. No pneumothorax. Heart/Mediastinum: Cardiomediastinal contours are unremarkable. Bones/joints: Bones are unremarkable. XR/XR chest 1V portable [id number] IMPRESSION: 1. No pulmonary consolidation. 2. Blunted right lateral costophrenic sulcus. Possible small pleural effusion or pleural scarring. No change since 09/04/2022.
[2022-10-27] MEDS: acetaminophen 325 mg Tablet 650 MG PO (14:27)
[2022-10-27] MEDS: heparin 5,000 unit/mL INJ 1 mL 5000 UNIT SUBCUT (14:33)
[2022-10-27 15:06] LABS: Iron 106 ug/dL (59-158); Thyroid Stimulating Hormone 1.99 uIU/mL (0.27-4.20); Total Iron Binding Capacity 246 mcg/dl; Unsaturated Iron Binding 140 ug/dL (112-347); Vitamin B12 378 pg/mL (232-1245)
[2022-10-27 16:48] LABS: Urine Appearance Clear (CLEAR); Urine Color Yellow (Yellow); pH Urine 6.5 (5-7)
[2022-10-27 16:49] LABS: Add Urine Culture? No; Add Urine Microscopic? YES; Bacteria Urine TRACE /hpf; Bilirubin Urine Neg (Negative); Blood Urine Trace (Negative); Glucose Urine UA Norm (Normal); Ketones Urine Negative (Negative); Leukocyte Esterase Urine Negative (Negative); Nitrate Urine Negative (Negative); Protein Urine Trace (Negative); RBC Urine RARE /hpf (0-2); Urobilinogen Urine 4 mg/dL (Negative)
[2022-10-27] MEDS: famotidine 20 mg Tablet PO (17:21)
[2022-10-27] MEDS: albuterol 2.5 mg/3 mL Neb INHALATION (18:02)
[2022-10-27] MEDS: morphine 4 mg/mL SDV 1 mL 2 MG IVP (19:28)
[2022-10-27] MEDS: atorvastatin 40 mg Tablet PO (21:01)
[2022-10-27] MEDS: finasteride 5 mg Tablet PO (21:01)
[2022-10-28] MEDS: heparin 5,000 unit/mL INJ 1 mL 5000 UNIT SUBCUT (02:01)
[2022-10-28 03:56] VITALS: BP 163/82; PULSE 73; RESP 17; TEMP 36.9; O2SAT 94
[2022-10-28] MEDS: lidocaine 5% Patch 1 PATCH TOPICAL (04:12)
[2022-10-28 04:27] LABS: Basophils % 0.5 %; Eosinophils # 0.3 10^3/uL (0.0-0.8); Eosinophils % 3.3 %; Hematocrit 41.3 % (42.0-52.0); Lymphocytes # 1.7 10^3/uL (0.8-4.8); Mean Corpuscular HGB Conc 33.9 g/dL (30.0-36.0); Mean Corpuscular Hemoglobin 33.6 pg (28.0-34.0); Mean Platelet Volume 10.1 fL (7.4-10.4); Monocytes # 0.7 10^3/uL (0.2-0.9); Monocytes % 8.3 %; Neutrophils # 5.89 10^3/uL (1.8-7.7); Neutrophils % 67.7 %; Nucleated Red Blood Cells % 0 %; Platelet Count 178 10^3/cmm (130-400); Red Blood Count 4.17 10^6/uL (4.1-5.3); Red Cell Distribution Width 13.2 % (12.1-15.1); White Blood Count 8.7 10^3/uL (4.0-10.0)
[2022-10-28 04:39] LABS: Estmated Average Glucose 111; Hemoglobin A1C 5.5 % (4.0-6.0)
[2022-10-28 04:57] LABS: Chol HDL Ratio 3.65 mg/dL (1.0-5.00); Cholesterol 175 mg/dL (0-200); HDL Cholesterol 48 mg/dL (60-100); LDL Cholesterol Calculated 116 mg/dL (50-129); LDL HDL Ratio 2.42 RATIO (0.00-3.22); Triglycerides 55 mg/dL (0-150)
[2022-10-28 04:58] LABS: Alanine Aminotransferase 7 U/L (0-41); Albumin Level 3.4 g/dL (3.5-5.2); Alkaline Phosphatase 98 U/L (40-130); Anion Gap 10.6 (5-19); Aspartate Amino Transferase 12 U/L (0-40); Blood Urea Nitrogen 13 mg/dL (8-23); Calcium 8.5 mg/dL (8.5-10.5); Carbon Dioxide 29 mmol/L (22-29); Chloride 106 mmol/L (98-107); Globulin 2.4 g/dL (1.3-4.6); Glucose 87 mg/dL (65-115); Magnesium 1.9 mg/dL (1.7-2.3); Osmolality Calculated 293 mOsm/kg (285-295); Phosphorus 3.6 mg/dL (2.5-4.5); Potassium 3.6 mmol/L (3.5-5.1); Sodium 142 mmol/L (136-145); Total Bilirubin 0.7 mg/dL (0.15-1.2); Total Protein 5.8 g/dL (6.6-8.7)
[2022-10-28 05:12] LABS: Folate Level 12.1 ng/mL (4.5-32.2)
[2022-10-28 05:27] LABS: INR 1.02 (0.8-1.2)
[2022-10-28 07:45] VITALS: BP 131/72; PULSE 82; RESP 18; TEMP 37; O2SAT 92
[2022-10-28] MEDS: tamsulosin 0.4 mg Capsule PO (08:40)
[2022-10-28 10:11] VITALS: PULSE 81; RESP 17; O2SAT 94
--- NOTE | 2022-10-28 11:42 | PM.DCS ---
Discharge Providers Date of Admission: 10/27/22 12:12 Date of Discharge: October 28, 2022 Attending Provider at Admission: Karan Malik MD Attending Provider at Discharge: Karan Malik MD Consults: Neurology: Dr. Garcia Diagnoses at Discharge Discharge Diagnosis (1) Infarction of right basal ganglia: Status: Acute Reason for Visit Reason for Visit: STROKE LIKE SYMPTOMS Hospital Course Hospital Course Jesus Posadas is a 77 year old male with past medical history of COPD, BPH, COVID-19 last year, thoracic aortic abdominal aneurysm, left renal mass was brought into the ER today as he was found down on the ground. According to the patient's family, the patient went to bed on 10/26/2022 at 10:30 PM and woke up at 5 AM on 10/27/2022 to go to the bathroom and his left leg gave way and he fell in the hallway.? The patient was found down by his and was displaying left-sided weakness involving his face arm and leg.? Patient was brought to the ER at around 11 AM.? Patient was seen by neurology and was deemed not a good candidate for tPA.? On examination patient was lying comfortably in bed, awake and alert without any nausea or vomiting.? Denies any headache.? Family at bedside. Patient was admitted to the hospital for further evaluation and management of right basal ganglia stroke. During hospitalization he was seen by multiple therapies including PT/OT and speech therapy. Diet was advanced gradually. Patient worked well with physical therapy. Due to fall he has been complaining of left-sided chest pain. X-ray was negative for rib fracture. Pain was controlled with lidocaine patch and oral narcotics. He has been discharged in hemodynamically stable condition on oral baby aspirin and atorvastatin. He is to continue using incentive spirometry at home along with his home dose of [place] and lidocaine patch. He is to follow-up with neurology in 2 weeks. Physical Exam Narrative: General: No acute distress, AO x3 HEENT: PERRLA, pupils bilaterally equal and reactive Chest: Normal vesicular breath sounds, no added sounds, equal good air entry bilaterally CVS: S1-S2 regular, no murmurs, no tachycardia, no gallops, no rubs Abdomen: Soft, nontender, no organomegaly, bowel sounds present Neuro: No focal deficits, no facial deformity, AO x3, Cranial nerves II through XII revealed right lower facial weakness.? Other cranial nerves were intact.? Extraocular movements intact.? Speech mildly dysarthric.? Patient follows commands.? Motor testing 5/5 bilaterally.? There was no ataxia on [id number] or [id number] maneuver.? Sensory examination was intact to touch, pinprick and there was no extinction on double sensory stimulation.? Deep tendon reflex revealed plantar flexor responses bilaterally.? Discharge Data Studies Completed and Pending Completed Studies During Hospitalization Category Date Time Status CT head thrombolytic [id number] Stat Cat Scan 10/27/22 11:00 Completed CTA head neck [CT angio headneck* [id number]] Stat Cat Scan 10/27/22 11:24 Completed XR chest 1V portable [id number] Stat Exams 10/27/22 12:50 Completed CV. echo complete* [id number] Routine Ultrasound 10/27/22 12:17 Completed Radiology Impressions Head CT 10/27/22 11:00 IMPRESSION: 1. No acute intracranial hemorrhage. 2. Multifocal asymmetric hypodensity in the right basal ganglia consistent with acute or subacute infarction. ASSESSMENT: ASPECTS ([place] Stroke Program Early CT Score) is 7. ADDENDUM: 10/27/22 1121 THIS REPORT CONTAINS FINDINGS THAT MAY BE CRITICAL TO PATIENT CARE. The findings were verbally communicated via telephone conference with EBONI MANCERA at 11:19 AM CDT on 10/27/2022. The findings were acknowledged and understood. Head/Neck CTA 10/27/22 11:24 IMPRESSION: 1. No arterial stenosis, occlusion or aneurysm. 2. Multifocal hypodensity in the right basal ganglia without mass effect. Possible acute or subacute infarction. IMPRESSION: 1. No arterial stenosis, occlusion or dissection. 2. Incidental findings above. REFERENCES: NASCET CRITERIA. The degree of stenosis in the cervical segment of the internal carotid artery is based on NASCET criteria. Normal is no stenosis. Mild is less than 50% stenosis. Moderate is 50-69% stenosis. Severe is 70% to 99% stenosis. Total occlusion is no detectable patent lumen. Chest X-Ray 10/27/22 12:50 IMPRESSION: 1. No pulmonary consolidation. 2. Blunted right lateral costophrenic sulcus. Possible small pleural effusion or pleural scarring. No change since 09/04/2022. Echocardiogram: ?CONCLUSIONS ?Normal left ventricular size, systolic function and wall ?thickness, with no regional wall motion abnormalities. Grade ?I/IV diastolic dysfunction (abnormal relaxation filling ?pattern), normal to mildly elevated filling pressures. Left ?ventricular ejection fraction is estimated at 60 %. ?Structurally normal mitral valve. Mild mitral valve ?regurgitation. ?Structurally normal trileaflet aortic valve. No aortic valve ?stenosis. Trace aortic valve regurgitation. ?There are no prior echocardiogram studies to compare. ?Dr. Juan C Fernandez MD ?(Electronically Signed) ?Final Date:? ? ? 28 October 2022 ? 09:39 Laboratory Results WBC 8.7 10^3/uL (4.0-10.0) 10/28/22 03:58 RBC 4.17 10^6/uL (4.1-5.3) 10/28/22 03:58 Hgb 14.0 g/dL (11.7-16.6) 10/28/22 03:58 Hct 41.3 % (42.0-52.0) L 10/28/22 03:58 MCV 99.0 fl (80-94) H 10/28/22 03:58 MCH 33.6 pg (28.0-34.0) 10/28/22 03:58 MCHC 33.9 g/dL (30.0-36.0) 10/28/22 03:58 RDW 13.2 % (12.1-15.1) 10/28/22 03:58 Plt Count 178 10^3/cmm (130-400) 10/28/22 03:58 MPV 10.1 fL (7.4-10.4) 10/28/22 03:58 Neut % (Auto) 67.7 % 10/28/22 03:58 Lymph % (Auto) 20.0 % 10/28/22 03:58 [place] % (Auto) 8.3 % 10/28/22 03:58 Eos % (Auto) 3.3 % 10/28/22 03:58 Baso % (Auto) 0.5 % 10/28/22 03:58 Neut # (Auto) 5.89 10^3/uL (1.8-7.7) 10/28/22 03:58 Lymph # (Auto) 1.7 10^3/uL (0.8-4.8) 10/28/22 03:58 [place] # (Auto) 0.7 10^3/uL (0.2-0.9) 10/28/22 03:58 Eos # (Auto) 0.3 10^3/uL (0.0-0.8) 10/28/22 03:58 Baso # (Auto) 0.0 10^3/uL (0.0-0.1) 10/28/22 03:58 Nucleated RBC % (auto) 0 % 10/28/22 03:58 Nucleated RBCs # 0.0 /100WBC 10/28/22 03:58 PT 13.70 SECONDS (12.1-14.9) 10/28/22 03:58 INR 1.02 (0.8-1.2) 10/28/22 03:58 APTT 26.1 SECONDS (23.9-36.7) 10/27/22 11:00 Sodium 142 mmol/L (136-145) 10/28/22 03:58 Potassium 3.6 mmol/L (3.5-5.1) 10/28/22 03:58 Chloride 106 mmol/L (98-107) 10/28/22 03:58 Carbon Dioxide 29 mmol/L (22-29) 10/28/22 03:58 Anion Gap 10.6 (5-19) 10/28/22 03:58 BUN 13 mg/dL (8-23) 10/28/22 03:58 Creatinine 0.4 mg/dL (0.7-1.2) L 10/28/22 03:58 GFR Calculation Not Reportable 10/28/22 03:58 Glucose 87 mg/dL (65-115) 10/28/22 03:58 POC Glucose 121 mg/dL (70-110) H 10/27/22 10:57 Estimat Average Glucose 111 10/28/22 03:58 Hemoglobin A1c 5.5 % (4.0-6.0) 10/28/22 03:58 Calculated Osmolality 293 mOsm/kg (285-295) 10/28/22 03:58 Calcium 8.5 mg/dL (8.5-10.5) 10/28/22 03:58 Phosphorus 3.6 mg/dL (2.5-4.5) 10/28/22 03:58 Magnesium 1.9 mg/dL (1.7-2.3) 10/28/22 03:58 Iron 106 ug/dL (59-158) 10/27/22 11:00 TIBC 246 mcg/dl 10/27/22 11:00 % Saturation 43.0 % (20-50) 10/27/22 11:00 Unsat Iron Binding 140 ug/dL (112-347) 10/27/22 11:00 Total Bilirubin 0.7 mg/dL (0.15-1.2) 10/28/22 03:58 AST 12 U/L (0-40) 10/28/22 03:58 ALT 7 U/L (0-41) 10/28/22 03:58 Alkaline Phosphatase 98 U/L (40-130) 10/28/22 03:58 Total Protein 5.8 g/dL (6.6-8.7) L 10/28/22 03:58 Albumin 3.4 g/dL (3.5-5.2) L 10/28/22 03:58 Globulin 2.4 g/dL (1.3-4.6) 10/28/22 03:58 Triglycerides 55 mg/dL (0-150) 10/28/22 03:58 Cholesterol 175 mg/dL (0-200) 10/28/22 03:58 LDL Cholesterol, Calc 116 mg/dL (50-129) 10/28/22 03:58 HDL Cholesterol 48 mg/dL (60-100) L 10/28/22 03:58 LDL/HDL Ratio 2.42 RATIO (0.00-3.22) 10/28/22 03:58 Cholesterol/HDL Ratio 3.65 mg/dL (1.0-5.00) 10/28/22 03:58 Vitamin B12 378 pg/mL (232-1245) 10/27/22 11:00 Folate 12.1 ng/mL (4.5-32.2) 10/28/22 03:58 TSH 1.99 uIU/mL (0.27-4.20) 10/27/22 11:00 Urine Color Yellow (Yellow) 10/27/22 16:27 Urine Appearance Clear (CLEAR) 10/27/22 16:27 Urine pH 6.5 (5-7) 10/27/22 16:27 Ur Specific [place] 1.000 (1.005-1.030) L 10/27/22 16:27 Urine Protein Trace (Negative) 10/27/22 16:27 Urine Glucose (UA) Norm (Normal) 10/27/22 16:27 Urine Ketones Negative (Negative) 10/27/22 16:27 Urine Blood Trace (Negative) H 10/27/22 16:27 Urine Nitrate Negative (Negative) 10/27/22 16:27 Urine Bilirubin Neg (Negative) 10/27/22 16:27 Urine Urobilinogen 4 mg/dL (Negative) H 10/27/22 16:27 Ur Leukocyte Esterase Negative (Negative) 10/27/22 16:27 Urine RBC Rare /hpf (0-2) 10/27/22 16:27 Urine WBC None /hpf (0-5) 10/27/22 16:27 Ur Squamous Epith Cells None /hpf (0-5) 10/27/22 16:27 Amorphous Sediment Not Reportable 10/27/22 16:27 Urine Bacteria Trace /hpf (NONE) 10/27/22 16:27 Vitals Last Vital Signs Temp 98.6 F 10/28/22 07:45 Pulse 81 10/28/22 10:11 Resp 17 10/28/22 10:11 BP 131/72 10/28/22 07:45 Pulse Ox 94 10/28/22 10:11 O2 Del Method Room Air 10/28/22 10:11 O2 Flow Rate 1 10/28/22 08:00 Discharge Plan Discharge Patient Disposition: Home Condition: Stable Prescriptions: New atorvastatin 40 mg Tablet 40 mg PO BEDTIME Qty: 30 0RF aspirin 81 mg Tablet,Delayed Release (Dr/Ec) 81 mg PO DAILY Qty: 30 0RF famotidine 20 mg Tablet 20 mg PO BID Qty: 20 0RF lidocaine 5 % Adhesive Patch,Medicated 1 patch topical [id number] Qty: 10 0RF amlodipine 5 mg tablet 5 mg PO DAILY Qty: 30 0RF Continued finasteride 5 mg tablet 5 mg PO BEDTIME Qty: 90 3RF tamsulosin 0.4 mg capsule 0.4 mg PO DAILY Qty: 90 3RF albuterol sulfate 90 mcg/actuation HFA aerosol inhaler 2 inh inhalation Q8H PRN (Reason: shortness of breath or wheezing) Qty: 8.5 2RF Discharge Orders: Discharge Order (Routine); Ordered 10/28/22 Ordered By: Karan Malik Referrals: Nilam Garcia APN [Referring] - 7-10 days Joni Garcia MD [Physician] - 2 weeks Discharge Diet: Cardiac Discharge Activity: Resume usual activity and Increase activity as tolerated Patient Instructions: Famotidine (By mouth), Aspirin (By mouth), Amlodipine (By mouth), Atorvastatin (By mouth), Lidocaine Patch (On the skin), Ischemic Stroke (DC), Self Care Measures After a Stroke (DC), Opioid Safety, Stroke Stoplight Activity Restrictions/Additional Instructions: Take amlodipine 5 mg daily for high blood pressure. Take baby aspirin 81 mg daily along with atorvastatin 40 mg daily. You should have a repeat lipid panel done in 6 months. Please make sure you continue to increase her activities as tolerated. Continue with aggressive lifestyle modification along with taking medications regularly. Please continue with incentive spirometry. Follow-up with neurology in 2 weeks and with your primary care provider within next 10 days. Discharge Attestations Time Spent in Discharge Care*: greater than 30 min Specific Discharge Activities: educating patient, educating and/or supporting family/caregiver, discussing with pcp/other providers, discussing with ed case manager/social workers/dc planners, documenting/other paperwork and evaluating patient/reviewing data Time Spent in Smoking Cessation: more than 10 minutes Status at Discharge: Cognitive status at discharge: cognitively intact, Behavioral status at discharge: cooperative, Functional status at discharge: independent ambulation, Overall status at discharge: patient is back to baseline Quality Metrics Clinical Quality Measures [ Cerebrovascular Accident { Contraindication to Antithrombotic: None; antithrombotic prescribed; Contraindication to Anticoagulation: Overlap treatment not indicated; Contraindication to Statin: None; Statin prescribed; Contraindication to tPA: Did not meet criteria;}] Coding Level of Care Code 60068 Total time (in minutes) for Discharge: 50 Diagnoses Infarction of right basal ganglia I63.9
[2022-10-28 11:54] VITALS: BP 155/83; PULSE 95; RESP 18; TEMP 36.6; O2SAT 90
[2022-10-28] MEDS: HYDROcodone-acetaminophen 5-325 mg Tablet 1 TAB PO (11:54)
[2022-10-28 14:43] VITALS: BP 155/83; PULSE 95; RESP 18; TEMP 36.6; O2SAT 90
== END 2022-10-28 14:40 | disposition home or self-care (01) ==
LOC: ER 12:16 → MEDSURG 12:59
PROVIDERS: Internal Medicine; Admitting Provider Student in an Organized Health Care Education/Training Program; Emergency Provider Emergency Medicine; PCP Nurse Practitioner Family; Visit Provider Student in an Organized Health Care Education/Training Program
DX: I63.9 Cerebral infarction, unspecified (principal); I44.4 Left anterior fascicular block; J44.9 Chronic obstructive pulmonary disease, unspecified; I71.20 Thoracic aortic aneurysm, without rupture, unspecified; N40.0 Benign prostatic hyperplasia without lower urinary tract symptoms; F17.200 Nicotine dependence, unspecified, uncomplicated; Z86.16 Personal history of COVID-19; R29.703 NIHSS score 3
CPT/HCPCS: 36415; 36416; 70450; 70496; 70498; 71045; 80053; 80061; 81001; 82607; 82746; 82962; 83036; 83540; 83550; 83735; 84100; 84443; 85025; 85610; 85730; 92610; 93005; 93306; 94640; 94664; 96365; 96372; 96375; 97161; 97165; 99285; G0378; J1644; J2270; J7613; Q9967

== ENCOUNTER 2022-10-30 11:17 | Emergency (ER) | payer MEDICARE, OTHER, SELFPAY ==
[2022-10-30 11:53] VITALS: BP 143/80; PULSE 110; RESP 15; TEMP 36.7; O2SAT 87
--- NOTE | 2022-10-30 12:09 | XRR_ITS ---
PROCEDURE INFORMATION: Exam: XR Lumbosacral Spine Exam date and time: 10/30/2022 12:37 PM Age: 77 years old Clinical indication: Injury or trauma; Fall; Blunt trauma (contusions or hematomas); Additional info: Fall back pain TECHNIQUE: Imaging protocol: Radiologic exam of the lumbosacral spine. Views: 2 or 3 views. COMPARISON: [place] [id number] 10/13/2021 9:41 PM FINDINGS: Bones/joints: No acute fracture. Overall loss of the natural lumbar lordosis without subluxation or dislocation. Slight dextroconvex curvature. Moderate multilevel intervertebral disc space narrowing and osteophytosis throughout the lumbar spine. Soft tissues: Unremarkable. Vasculature: Aortoiliac atherosclerotic calcification. XR/XR lumbar spine 2-3V* [id number] IMPRESSION: 1. No acute fracture or traumatic listhesis. 2. Overall straightening of the natural lumbar lordosis may be positional, possibly related to muscle spasm.
--- NOTE | 2022-10-30 12:09 | XRR_ITS ---
PROCEDURE INFORMATION: Exam: XR Left Ribs with PA Chest Exam date and time: 10/30/2022 12:32 PM Age: 77 years old Clinical indication: Injury or trauma; Fall; Rib area, left side; Blunt trauma; Additional info: Fall rib pain TECHNIQUE: Imaging protocol: Radiologic exam of the left ribs with PA chest. Views: 3 views COMPARISON: CR (CHEST, ) 10/27/2022 12:53 PM FINDINGS: Lungs: Mild bibasilar linear subsegmental atelectasis versus scarring. No consolidation. Pleural spaces: No substantial pleural effusion or pneumothorax. Heart/Mediastinum: Unremarkable. No cardiomegaly. Vasculature: Vascular calcifications. Bones/joints: Nondisplaced posterolateral left 5th through 7th rib fractures. Minimally displaced posterolateral left 8th through 11th rib fractures. XR/XR ribs LT mn 3V w CXR1V [id number] IMPRESSION: 1. Left 5th through 11th rib fractures meet criteria for flail chest. 2. Left basilar atelectasis without substantial pleural effusion or pneumothorax.
--- NOTE | 2022-10-30 12:22 | W.ED.FALL ---
HPI - Fall General: Chief Complaint: Fall Stated Complaint: stroke saturday, fell today, pain left side Time Seen by Provider: 10/30/22 12:04 History of Present Illness: Patient presents to the ER today with complaints of fall. Patient initially fell about 6 weeks ago off a horse and hurt his left chest wall rib. Patient has stroke about 3 days ago was here in the hospital. When patient was discharged he went home and fell and hit his left side 1 more time. Patient fell again this morning on his left side. Patient now complaining of left chest wall pain and low back pain. Patient did not hit his head, denies loss of consciousness. 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 No significant past medical history Renal mass since 2019 Smoker Weight loss Surgical History History of surgery on lower extremity No significant past surgical history Family History Denies family history of Cancer Social History Smoking and tobacco status: current every day smoker cigarettes Years cigarettes smoked: 50 Alcohol intake: current Alcohol intake frequency: few times a month Substance/Drug Use: never Caregiver/support person: Yes Lives independently: Yes Household members: spouse Housing: House Marital status: Current occupational status: retired Physical Exam Const: COMMON NORMALS: no acute distress, average body habitus, patient oriented x3, no limitations, healthy appearing, alert and well nourished HENMT: COMMON NORMALS: normocephalic, atraumatic, hearing grossly normal bilaterally, external ears normal, Normal external nose present and moist oral mucous membranes HEAD & SCALP: normocephalic and atraumatic NOSE: Normal external nose present EXTERNAL EAR: Yes external ears normal Neck/C-Spine: COMMON NORMALS: full ROM, no lymphadenopathy, supple, no meningeal signs, no JVD and Thyroid normal THYROID: Thyroid normal Chest: OTHER: Left lateral posterior chest wall bruising in various stages of healing and very tender to palpation. Resp: COMMON NORMALS: normal respiratory effort, No retractions, No use of accessory muscles and clear to auscultation bilaterally AUSCULTATION: clear to auscultation bilaterally Cardio: COMMON NORMALS: no JVD, regular rate, regular rhythm, S1 normal heart sound present, S2 normal heart sound present, No gallops present (Cardio), No clicks present (Cardio), No murmurs present (Cardio) and No rub (Cardio) RATE: regular rate RHYTHM: regular rhythm HEART SOUNDS: S1 normal heart sound present and S2 normal heart sound present GI: COMMON NORMALS: Normal to inspection, nondistended, normoactive bowel sounds present, Soft to palpation, non-tender, No hepatosplenomegaly present and no masses PALPATION: Yes Soft to palpation and Yes No hepatosplenomegaly present Neuro: COMMON NORMALS: patient oriented x3 SENSORIUM/ORIENTATION: Yes alert MENINGEAL SIGNS: Yes no meningeal signs Course Vital Signs: Vital signs: Vital Signs Temperature 98.0 F 10/30/22 11:53 Pulse Rate 110 H 10/30/22 11:53 Respiratory Rate 15 10/30/22 11:53 Blood Pressure 143/80 10/30/22 11:53 Pulse Oximetry 87 L 10/30/22 11:53 Oxygen Delivery Me thod Room Air 10/30/22 11:53 MDM - Fall Medical Decision Making Patient presents to the ER with complaints of falling. Patient's had multiple falls over about the last 6 weeks confounded by recent stroke and left-sided weakness. Patient had x-rays which showed he had multiple rib fractures on the left ribs 5 through 11. This was discussed with patient and daughter patient would like to go home and rest and recuperate at home on pain medicine. Patient be prescribed hydrocodone and instructed to follow-up with his family physician in the next 7 to 10 days. Differential Diagnosis Unlikely syncope, dislocation of shoulder region, fracture of wrist, compression fracture, concussion with loss of consciousness or concussion without loss of consciousness Lab Data I reviewed the patient's lab results. Radiology Impressions Lumbar Spine X-Ray 10/30/22 12:09 IMPRESSION: 1. No acute fracture or traumatic listhesis. 2. Overall straightening of the natural lumbar lordosis may be positional, possibly related to muscle spasm. Ribs X-Ray 10/30/22 12:09 IMPRESSION: 1. Left 5th through 11th rib fractures meet criteria for flail chest. 2. Left basilar atelectasis without substantial pleural effusion or pneumothorax. Discharge Plan Discharge Patient Disposition: Home Clinical Impression: Multiple fractures of ribs Qualifiers: Encounter type: initial encounter Fracture type: closed Laterality: left Qualified Code(s): S22.42XA - Multiple fractures of ribs, left side, initial encounter for closed fracture Fall Qualifiers: Encounter type: initial encounter Qualified Code(s): W19.XXXA - Unspecified fall, initial encounter Condition: Stable Prescriptions: New hydrocodone-acetaminophen 5-325 mg tablet 1 tab PO Q6H PRN (Reason: pain) Qty: 20 0RF No Action finasteride 5 mg tablet 5 mg PO BEDTIME Qty: 90 3RF tamsulosin 0.4 mg capsule 0.4 mg PO DAILY Qty: 90 3RF albuterol sulfate 90 mcg/actuation HFA aerosol inhaler 2 inh inhalation Q8H PRN (Reason: shortness of breath or wheezing) Qty: 8.5 2RF atorvastatin 40 mg Tablet 40 mg PO BEDTIME Qty: 30 0RF aspirin 81 mg Tablet,Delayed Release (Dr/Ec) 81 mg PO DAILY Qty: 30 0RF famotidine 20 mg Tablet 20 mg PO BID Qty: 20 0RF lidocaine 5 % Adhesive Patch,Medicated 1 patch topical [id number] Qty: 10 0RF amlodipine 5 mg tablet 5 mg PO DAILY Qty: 30 0RF hydrocodone-acetaminophen 5-325 mg tablet 1 tab PO Q6H PRN (Reason: Pain) Discharge Orders: Discharge ED (Routine); Ordered 10/30/22 Ordered By: Aaron Brooks Referrals: Mireya Quinones FNP [Primary Care Provider] - 7-10 days Patient Instructions: Opioid Safety, Pain Management, Fractures - Rib Activity Restrictions/Additional Instructions: Please take pain medicine as directed as needed. Please follow-up with primary care within the next 7 to 10 days or sooner as needed for further evaluation and treatment. Coding Level of Care Code ED [employer] for [facility]
--- NOTE | 2022-10-30 13:42 | PC.NURSE ---
Assumed pt care from Julia Gonzalez LPN.
[2022-10-30 13:54] VITALS: BP 140/76; PULSE 100; RESP 15; TEMP 36.7; O2SAT 90
[2022-10-30] MEDS: HYDROcodone-acetaminophen 7.5-325 mg Tablet 1 TAB PO (13:54)
== END 2022-10-30 13:56 | disposition home or self-care (01) ==
PROVIDERS: Emergency Provider Emergency Medicine; PCP Nurse Practitioner Family
DX: S22.42XA Multiple fractures of ribs, left side, initial encounter for closed fracture (principal); Z79.82 Long term (current) use of aspirin; J44.9 Chronic obstructive pulmonary disease, unspecified; F17.210 Nicotine dependence, cigarettes, uncomplicated; W19.XXXA Unspecified fall, initial encounter; Z86.73 Personal history of transient ischemic attack (TIA), and cerebral infarction without residual deficits
CPT/HCPCS: 71101; 72100; 99284

== ENCOUNTER → 2022-11-06 14:43 | Outpatient (BNVA) | payer MEDICARE, OTHER, SELFPAY | PROVIDERS: PCP Nurse Practitioner Family; Visit Provider Psychiatry & Neurology Neurology | DX: I69.322 Dysarthria following cerebral infarction (principal); I69.392 Facial weakness following cerebral infarction; I69.398 Other sequelae of cerebral infarction; I69.354 Hemiplegia and hemiparesis following cerebral infarction affecting left non-dominant side; R26.89 Other abnormalities of gait and mobility; F17.210 Nicotine dependence, cigarettes, uncomplicated; I63.9 Cerebral infarction, unspecified | CPT/HCPCS: 36415; 81241; 83090; 85210; 85613; 85730; 86146; 86147; 99212 ==

== ENCOUNTER 2022-11-27 06:00 | Outpatient (RCR) | payer MEDICARE, OTHER, SELFPAY | END 2022-12-15 23:59 | disposition home or self-care (01) | LOC: TR3 06:00 | PROVIDERS: Visit Provider Nurse Practitioner Family | DX: I63.9 Cerebral infarction, unspecified (principal); I69.391 Dysphagia following cerebral infarction | CPT/HCPCS: 92507; 92610; 97162 ==

== ENCOUNTER → 2023-03-19 15:34 | Outpatient (BNVA) | payer MEDICARE, OTHER, SELFPAY | PROVIDERS: PCP Nurse Practitioner Family; Visit Provider Nurse Practitioner Family | DX: R06.02 Shortness of breath (principal); R53.83 Other fatigue; R09.89 Other specified symptoms and signs involving the circulatory and respiratory systems; E55.9 Vitamin D deficiency, unspecified; R05.9 Cough, unspecified; J18.9 Pneumonia, unspecified organism; Z79.899 Other long term (current) drug therapy; R53.1 Weakness | CPT/HCPCS: 71046; 80053; 81003; 82306; 82607; 83735; 84439; 84443; 85025; 87486; 87581; 87633 ==

== ENCOUNTER → 2023-03-20 18:40 | Outpatient (BNVA) | payer MEDICARE, OTHER, SELFPAY | PROVIDERS: PCP Nurse Practitioner Family; Visit Provider Nurse Practitioner Family | DX: R06.02 Shortness of breath (principal); R53.83 Other fatigue; R09.89 Other specified symptoms and signs involving the circulatory and respiratory systems; E55.9 Vitamin D deficiency, unspecified; R05.9 Cough, unspecified; J18.9 Pneumonia, unspecified organism | CPT/HCPCS: 85025 ==

== ENCOUNTER → 2023-05-31 11:08 | Outpatient (BNVA) | payer MEDICARE, OTHER, SELFPAY | PROVIDERS: PCP Nurse Practitioner Family; Visit Provider Nurse Practitioner Family | DX: R97.20 Elevated prostate specific antigen [PSA] (principal); E55.9 Vitamin D deficiency, unspecified; E78.5 Hyperlipidemia, unspecified; R73.9 Hyperglycemia, unspecified; M54.6 Pain in thoracic spine; M54.50 Low back pain, unspecified; M25.551 Pain in right hip | CPT/HCPCS: 72070; 72100; 73502 ==

== ENCOUNTER 2023-06-07 14:11 | Outpatient (CLI) | payer MEDICARE, OTHER, SELFPAY ==
--- NOTE | 2023-06-07 14:30 | MR_ITS ---
WS: [id number] MRI THORACIC SPINE WITHOUT CONTRAST TECHNIQUE: Sagittal T1, T2 and STIR imaging. Axial T2 imaging. Noncontrast imaging obtained. CLINICAL INFORMATION: S22.000A - Wedge compression fracture of unspecified thor... COMPARISON: None. FINDINGS: Mild thoracic curve. Moderate thoracic kyphosis. Compression fracture superior endplate T7 with loss of approximately 20 to 30% vertebral body height with associated edema. No retropulsion. Spinal canal remains patent. Cord signal is normal. No high-grade central canal stenosis. No other acute appearing compression fractures. Moderate facet arthropathy lower thoracic spine. Normal caliber thoracic aorta. Incidental perineural sleeve cyst RI GHT T11-12. Normal paravertebral soft tissues. IMPRESSION: 1. Mild thoracic curve. Moderate thoracic kyphosis. 2. Acute compression fracture superior endplate T7 with loss of approximately 20 to 30% vertebral jose dy height with associated edema. No retropulsion. 3. No significant central canal stenosis. Cord signal is normal. 4. Moderate facet arthropathy lower thoracic spine. 5. No other acute findings.
== END 2023-06-07 14:12 | disposition home or self-care (01) ==
LOC: RAD 14:11
PROVIDERS: PCP Nurse Practitioner Family; Visit Provider Nurse Practitioner Family
DX: S22.000A Wedge compression fracture of unspecified thoracic vertebra, initial encounter for closed fracture (principal); M54.6 Pain in thoracic spine; M40.294 Other kyphosis, thoracic region; M47.814 Spondylosis without myelopathy or radiculopathy, thoracic region
CPT/HCPCS: 72146; 80053; 80061; 82306; 82607; 83036; 83735; 84153; 84443; 85025

== ENCOUNTER → 2024-02-17 12:05 | Outpatient (BNVA) | payer MEDICARE, OTHER, SELFPAY | PROVIDERS: PCP Nurse Practitioner Family; Visit Provider Nurse Practitioner Family | DX: E44.1 Mild protein-calorie malnutrition (principal); E55.9 Vitamin D deficiency, unspecified; E78.5 Hyperlipidemia, unspecified; R97.20 Elevated prostate specific antigen [PSA] | CPT/HCPCS: 80053; 80061; 82306; 82607; 83036; 84153; 84443; 85025; 86592; 86705; 86706; 86709; 86803; 87340; 87806 ==

== ENCOUNTER 2024-12-01 10:27 | Inpatient (IN) | payer MEDICARE, OTHER, SELFPAY ==
--- OUTSIDE RECORDS SUMMARY | 2024-05-25 12:00 | XMS_ITS ---
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 Name Role Phone Mireya Quinones Primary Care Provider MYLES Kwan Unavailable [phone] REASON FOR VISIT 1-2 week post op with path Encounters Encounter Location Date Provider Diagnosis [facility] [address] [facility] [place] [address] 05/25/2024 MYLES HUFF Rising PSA level R97.20 ; Enlarged prostate N40.0 ; Left renal mass N28.89 ; Decreased appetite R63.0 ; Weight loss R63.4 and Current smoker F17.200 Assessments Encounter Date Diagnosis (ICD Code) Assessment Notes Treatment Notes Treatment Clinical Notes Section Notes 05/25/2024 Rising PSA level (ICD-10 - R97.20) 78 y/o M with elevated PSA. Enlarged prostate. Left renal mass. PVR 107cc. Underwent MRI fusion biopsy on 04/10/24. Pathology resulting in 03/31 cores positive 3+3 Kamar 6. 1 atypical core Plan: recommend Physical therapy for his back pain -Will continue surveillance of kidney with Imaging - Schedule MRI fusion PNBx in [place] - RTC post op Lauren Vital Scribe, am scribing for, and in the presence of, Dr. Huff. I, Dr. Myles Huff, personally performed the services prescribed in this documentation, as scribed by Lauren Fuentes, in my presence, and it is both accurate and complete. 05/25/2024 Enlarged prostate (ICD-10 - N40.0) 78 y/o M with elevated PSA. Enlarged prostate. Left renal mass. PVR 107cc. Underwent MRI fusion biopsy on 04/10/24. Pathology resulting in 03/31 cores positive 3+3 [place] 6. 1 atypical core Plan: recommend Physical therapy for his back pain -Will continue surveillance of kidney with Imaging - Schedule MRI fusion PNBx in [place] - RTC post op I, Nathanael Kathleen, am scribing for, and in the presence of, Dr. Huff. I, Dr. Myles Huff, personally performed the services prescribed in this documentation, as scribed by Lauren Fuentes, in my presence, and it is both accurate and complete. 05/25/2024 Left renal mass (ICD-10 - N28.89) 78 y/o M with elevated PSA. Enlarged prostate. Left renal mass. PVR 107cc. Underwent MRI fusion biopsy on 04/10/24. Pathology resulting in 03/31 cores positive 3+3 [place] 6. 1 atypical core Plan: recommend Physical therapy for his back pain -Will continue surveillance of kidney with Imaging - Schedule MRI fusion PNBx in [place] - RTC post op I, Nathanael Kathleen, am scribing for, and in the presence of, Dr. Huff. I, Dr. Myles Huff, personally performed the services prescribed in this documentation, as scribed by Lauren Fuentes, in my presence, and it is both accurate and complete. 05/25/2024 Decreased appetite (ICD-10 - R63.0) 78 y/o M with elevated PSA. Enlarged prostate. Left renal mass. PVR 107cc. Underwent MRI fusion biopsy on 04/10/24. Pathology resulting in 03/31 cores positive 3+3 Kamar 6. 1 atypical core Plan: recommend Physical therapy for his back pain -Will continue surveillance of kidney with Imaging - Schedule MRI fusion PNBx in [place] - RTC post op I, Nathanael Kathleen, am scribing for, and in the presence of, Dr. Huff. I, Dr. Myles Huff, personally performed the services prescribed in this documentation, as scribed by Lauren Fuentes, in my presence, and it is both accurate and complete. 05/25/2024 Weight loss (ICD-10 - R63.4) 78 y/o M with elevated PSA. Enlarged prostate. Left renal mass. PVR 107cc. Underwent MRI fusion biopsy on 04/10/24. Pathology resulting in 1/14 cores positive 3+3 Kamar 6. 1 atypical core Plan: recommend Physical therapy for his back pain -Will continue surveillance of kidney with Imaging - Schedule MRI fusion PNBx in [place] - RTC post op ILauren Scribe, am scribing for, and in the presence of, Dr. Huff. I, Dr. Myles Huff, personally performed the services prescribed in this documentation, as scribed by Lauren Fuentes, in my presence, and it is both accurate and complete. 05/25/2024 Current smoker (ICD-10 - F17.200) 78 y/o M with elevated PSA. Enlarged prostate. Left renal mass. PVR 107cc. Underwent MRI fusion biopsy on 04/10/24. Pathology resulting in 114 cores positive 3+3 [place] 6. 1 atypical core Plan: recommend Physical therapy for his back pain -Will continue surveillance of kidney with Imaging - Schedule MRI fusion PNBx in [place] - RTC post op I, Nathanael Kathleen, am scribing for, and in the presence of, Dr. Huff. I, Dr. Myles Huff, personally performed the services prescribed in this documentation, as scribed by Lauren Fuentes, in my presence, and it is both accurate and complete. Plan Of Treatment No Information Progress Notes * Jesus FERNANDEZ RDOB:1945 (79 yo M)Acc No.[id number]:05/25/2024 Patient: Jesus CONNER Provider: Genaro HUFF MD :1945 A ge:78 Y S ex:Male Date:05/25/2024 Address:[address] [place] [address], [facility] Pcp:Mireya Quinones Subjective: * Chief Complaints: * 1 . 1-2 week post op with path. * HPI: M igrated HPI: Mr. Fernandez is a 78-year-old male new patient referred by PCP, Mireya Quinones APRN, for known left renal mass and elevated PSA. He was previously seen by Dr. Daugherty. Non-contrast CT chest/abdomen/pelvis in 09/2021 revealed a left renal mass along the superior pole measuring 7.0 x 5.6 cm, also noted on CT in 2019 and was unchanged in size. No hydronephrosis. No nephrolithiasis. He also has a very enlarged prostate, findings of chronic bladder outlet obstruction with multiple small bladder diverticula. PSA of 6.7, corrected to 13.4 on finasteride in 05/2023. Repeat PSA in 02/17/2024 of 13.4, corrected to 26.8 on finasteride. He is also on Flomax. He is a current everyday smoker with 1/2 packs/day, and also uses fine cut tobacco. He denies family history of malignancy. He notes decreased appetite and weight loss, about 30lbs over the past year. He has never had a prostate or renal mass biopsy. He is having increased lower back pain. Reports decent urinary stream, feels to empty his bladder well. MRI obtained on 03/23/24 resulting inlarge prostate 73 cc. 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 COPD and emphysematous changes are noted with a consolidatinginfiltrate process in the right lower lobe and some mild fullness ofthe right hilar soft tissues. Underwent MRI fusion biopsy on 04/10/24. Here today post op with path Pathology resulting in 1/14 cores positive 3+3 Kamar 6. 1 atypical core. * Medical History: Objective: * Vitals: Assessment: * Assessment: 1. R ising PSA level - R97.20 (Primary) 2 . E nlarged prostate - N40.0 3 . L eft renal mass - N28.89 4 . D ecreased appetite - R63.0? 5. W eight loss - R63.4 6 . C urrent smoker - F17.200 ? 78 y/o M with elevated PSA. Enlarged prostate. Left renal mass. PVR 107cc. Underwent MRI fusion biopsy on 04/10/24. Pathology resulting in 1/14 cores positive 3+3 [place] 6. 1 atypical core Plan: recommend Physical therapy for his back pain -Will continue surveillance of kidney with Imaging - Schedule MRI fusion PNBx in [place] - RTC post op Lauren Vital Scribe, am scribing for, and in the presence of, Dr. Huff. I, Dr. Myles Huff, personally performed the services prescribed in this documentation, as scribed by Lauren Fuentes, in my presence, and it is both accurate and complete. Plan: * Treatment: * Billing Information: * Visit Code: * Procedure Codes: * Electronic signature of AUST IN MD ANJELICA on 12/01/2024 at 11:36 AM CDT Sign off status: Pending * Provider: Genaro HUFF MD Date: 05/25/2024 Generated for Raudel sharma/Ministerio/Marybelitting on: 0 12/01/2024 11:36 AM CDT History and Physical Notes * HPI (History of Present Illness) Category Sub-Category Detail Notes Category Not es Migrated HPI Mr. Fernandez is a 78-year-old male new patient referred by PCP, Mireya Quinones APRN, for known left renal mass and elevated PSA. He was previously seen by Dr. Daugherty. Non-contrast CT chest/abdomen/pelvis in 09/2021 revealed a left renal mass along the superior pole measuring 7.0 x 5.6 cm, also noted on CT in 2019 and was unchanged in size. No hydronephrosis. No nephrolithiasis. He also has a very enlarged prostate, findings of chronic bladder outlet obstruction with multiple small bladder diverticula. PSA of 6.7, corrected to 13.4 on finasteride in 05/2023. Repeat PSA in 02/17/2024 of 13.4, corrected to 26.8 on finasteride. He is also on Flomax. He is a current everyday smoker with 1/2 packs/day, and also uses fine cut tobacco. He denies family history of malignancy. He notes decreased appetite and weight loss, about 30lbs over the past year. He has never had a prostate or renal mass biopsy. He is having increased lower back pain. Reports decent urinary stream, feels to empty his bladder well. MRI obtained on 03/23/24 resulting in large prostate 73 cc. With PI- RADS 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 COPD and emphysematous changes are noted with a consolidatinginfiltrate process in the right lower lobe and some mild fullness ofthe right hilar soft tissues. Underwent MRI fusion biopsy on 04/10/24. Here today post op with path Pathology resulting in 03/31 cores positive 3+3 [place] 6. 1 atypical core
[2024-12-01] VITALS (17 sets, daily range): BP systolic 103–144; BP diastolic 58–97; PULSE 59–112; RESP 15–19; TEMP 36.1–36.8; O2SAT 91–98
--- NOTE | 2024-12-01 10:11 | ECG_ITS ---
[facility] Test Date: 2024-12-01 Pat Name: Jesus Posadas Department: Room: Gender: Male Butt Maker: : 1945 Requested By: Alexey Vasquez Order Number: [id number] Gabby MD: Jose Alejandro Castorena M.D. Measurements Intervals [place] Rate: 109 P: 95 OR: 151 QRS: -60 QRSD: 90 T: 53 QT: 344 QTc: 463 Interpretive Statements Possible multifocal atrial tachycardia LEFT ANTERIOR FASCICULAR BLOCK [QRS AXIS <= -45, QR IN I, RS IN II] SEPTAL MYOCARDIAL INFARCTION , OF INDETERMINATE AGE [40+ ms Q WAVE IN V1/V2] Compared to ECG 10/27/2022 11:23:20 Left anterior fascicular block now present Myocardial infarct finding now present Sinus rhythm no longer present Left-axis deviation no longer present Heavy baseline artifacts; Need to repeat the study. Electronically Signed On 12-01-2024 17:47:28 CDT by Jose Alejandro Castorena M.D. [email or web address]
--- NOTE | 2024-12-01 10:11 | XR_ITS ---
WS: [id number] XR chest 1V portable [id number] REASON FOR EXAM: dyspnea/cough FINDINGS: No recent examination for comparison. Moderate tortuosity and mild ectasia of the thoracic aorta. Normal heart size. Findings of chronic obstructive lung disease. Reticular and groundglass opacities in the right lower lung with volume loss. XR/XR chest 1V portable [id number] IMPRESSION: Obstructive lung disease. Right lower lung abnormality as above which may repre sent acute or subacute pneumonitis and atelectasis.
--- NOTE | 2024-12-01 10:11 | CT_ITS ---
WS: [id number] CT HEAD NONCONTRAST HISTORY: Fall left-sided weakness TECHNIQUE: Contiguous axial imaging performed through the brain. Bone and soft tissue windows. Sagittal and coronal reformats reviewed. All CT scans at [facility] use at least one of these dose optimization techniques: automated exposure control; mA and/or kV adjustment per patient size (includes targeted exams where dose is matched to clinical indication); or iterative reconstruction. DLP: 1044.08 mGy.cm COMPARISON: 10/27/2022 No acute intracranial hemorrhage, midline shift or mass effect. Moderate symmetric atrophy and mild small vessel disease. Small lacunar infarcts in the RIGHT basal ganglia. Small lacunar infarct adjacent the anterior horn of the LEFT lateral ventricle abutting the corpus callosum. This infarct is new since 10/27/2022. Ventricles: Normal size with no hydrocephalus. No inferior displacement of the cerebellar tonsils. Paranasal sinuses: Mild mucoperiosteal thickening in the maxillary sinuses. No air-fluid levels. Mastoid air cells: Well pneumatized. Large amount of cerumen in the LEFT external auditory canal. Calvarium and scalp: Skull is intact with no soft tissue edema or swelling. CT/CT head wo con* [id number] IMPRESSION: 1. No acute intracranial hemorrhage or edema. 2. Numerous small lacunar infarcts in the RIGHT basal ganglia and adjacent to the anterior horn LEFT lateral ventricle. No acute infarcts. 3. No scalp hematoma or fracture.
--- NOTE | 2024-12-01 10:53 | ED_ITS ---
HPI - General Adult 2 General: Chief complaint: Eye Problems Stated complaint: Fell Yesterday, LT Side weakness History of Present Illness: 79-year-old male presents to the emergen cy room complaining of left hip pain. He had a stroke few years ago has L-sided weakness he [facility] the shelter usually is able to ambulate he no longer able to ambulate he says he Bear weight because it hurts too much. Normally does not wear oxygen EMS report he was at 82% on room air when they arrived he is now on 3 L/min satting 91%. He does have a nonproductive cough family relates he still smokes regularly. Associated symptoms: Deny chest pain, dyspnea or rash Related Data Previous Rx's ?Medication ?Instructions ?Recorded aspirin 81 mg tablet,delayed 81 mg PO DAILY #30 tabs 0 10/28/22 release nebulizer machine with tubing and #1 ea 03/19/23 delivery device tamsulosin 0.4 mg capsule 0.4 mg PO DAILY #90 caps albuterol sulfate 90 mcg/actuation 1 inh inhalation Q6 H PRN shortness 12/02/24 aerosol inhaler (Ventolin HFA) of breath or wheezing # 6.7 grams hydrocodone 5 mg-acetaminophen 325 1 tab PO Q8H PRN Mo derate To 12/02/24 mg tablet Severe Pain 5 days #15 tabs Allergies Allergy/AdvReac Type Severity Reaction Status Date / Time No Known Allergies Allergy Verified 02/17/24 11:11 Review of Systems 2 Const: Denies: fever(s) or chills Card: Denies: chest pain Resp: Denies: dyspnea GI: Denies: abdominal pain : Denies: dysuria, urinary frequency or urinary urgency Musc: Denies: neck pain or back pain Skin/Breast: Denies: rash PFSH ED 2 PFSH: Medical History BPH loc w urin obs/LUTS 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 Weight loss Anorexia COPD (chronic obstructive pulmonary disease) Smoker Renal mass since 2019 COVID-19 No significant past medical history Surgical History History of surgery on lower extremity No significant past surgical history Family History Denies family history of Cancer Social History Smoking and tobacco/nicotine status: current every day tobacco/nicotine user cigarettes Years cigarettes smoked: 50 Alcohol intake: current Alcohol intake frequency: few times a month Substance/Drug Use: never Caregiver/support person: Yes Lives independently: Yes Household members: spouse Housing: House Marital status: Current occupational status: retired Physical Exam 2 Const: COMMON NORMALS: no acute distress GENERAL APPEARANCE: cooperative and comfortable ORIENTATION/CONSCIOUSNESS: Yes awake, Yes oriented to person, Yes oriented to place and Yes oriented to time HENMT: COMMON NORMALS: normocephalic, atraumatic and hearing grossly normal bilaterally HEAD & SCALP: normocephalic and atraumatic Resp: COMMON NORMALS: normal respiratory effort, No retractions, No use of accessory muscles and clear to auscultation bilaterally AUSCULTATION: clear to auscultation bilaterally Cardio: COMMON NORMALS: regular rate, regular rhythm and No murmurs present (Cardio) RATE: regular rate RHYTHM: regular rhythm GI: COMMON NORMALS: Soft to palpation and No hepatosplenomegaly present A USCULTATION: Yes normoactive bowel sounds PALPATION: Yes Soft to palpation, No Tenderness to palpation present (GI), No Guarding due to palpation present (GI) and Yes No hepatosplenomegaly present Extremity: COMMON NORMALS: normal to inspection, capillary refill normal, no clubbing, cyanosis or edema, no calf tenderness and no pedal edema Neuro: SENSORIUM/ORIENTATION: Yes oriented to person, Yes oriented to place and Yes oriented to time Skin: COMMON NORMALS: no rashes or lesions noted GENERAL SKIN EXAM: no rashes or lesions noted Course 2 Vital Signs: Vital signs: Vital Signs Temperature 98.9 F 12/02/24 12:30 Pulse Rate 82 12/02/24 12:30 Respiratory Rate 21 H 12/02/24 12:30 Blood Pressure 114/67 12/02/24 12:30 Pulse Oximetry 95 12/02/24 12:30 Oxygen Delivery Me thod Nasal Cannula 12/02/24 11:28 Oxygen Flow Rate 3 12/02/24 10:38 [facility] - General Adult Medical Decision Making Plain x-ray of the hip negative CT shows greater trochanter fracture. Patient has some right lower lobe pneumonia and developed some hypoxia while here white count not significantly elevated discussed with hospitalist will admit IV antibiotics started. Is requiring oxygen supplementation via nasal cannula at 3 to 4 L to maintain normal oxygen saturations. Lab Data 12/02/24 04:28 12/02/24 04:28 Radiology Impressions Chest X-Ray 12/01/24 10:11 IMPRESSION: Obstructive lung disease. Right lower lung abnormality as above which may represent acute or subacute pneumonitis and atelectasis. Head CT 12/01/24 10:11 IMPRESSION: 1. No acute intracranial hemorrhage or edema. 2. Numerous small lacunar infarcts in the RIGHT basal ganglia and adjacent to the anterior horn LEFT lateral ventricle. No acute infarcts. 3. No scalp hematoma or fracture. Hip/Pelvis X-Ray 12/01/24 10:53 IMPRESSION: No acute abnormality. Hip CT 12/01/24 13:36 IMPRESSION: 1. Nondisplaced LEFT greater trochanter fracture. Fracture line does extend into the subtrochanteric portion of the hip. 2. No acetabular fracture. 3. Markedly enlarged prostate gland with bladder wall thickening and diverticula. Laboratory Results WBC 10.30 10^3/uL (3.29-11.43) 12/01/24 11:12 RBC 4.15 10^6/uL (3.85-5.65) 12/01/24 11:12 Hgb 13.70 g/dL (11.27-16.99) 12/01/24 11:12 Hct 42.5 % (37-53) 12/01/24 11:12 MCV 102.4 fl (82-101) H 12/01/24 11:12 MCH 33.0 pg (27-33) 12/01/24 11:12 MCHC 32.2 g/dL (30-55) 12/01/24 11:12 RDW 13.7 % (12.1-15.1) 12/01/24 11:12 Plt Count 158 10^3/cmm (157-399) 12/01/24 11:12 MPV 9.0 fL (7.4-10.4) 12/01/24 11:12 Neut % (Auto) 77.5 % 12/01/24 11:12 Lymph % (Auto) 12.0 % 12/01/24 11:12 [place] % (Auto) 8.6 % 12/01/24 11:12 Eos % (Auto) 1.0 % 12/01/24 11:12 Baso % (Auto) 0.4 % 12/01/24 11:12 Neut # (Auto) 7.98 10^3/uL (1.8-7.7) H 12/01/24 11:12 Lymph # (Auto) 1.2 10^3/uL (0.8-4.8) 12/01/24 11:12 [place] # (Auto) 0.9 10^3/uL (0.2-0.9) 12/01/24 11:12 Eos # (Auto) 0.1 10^3/uL (0.0-0.8) 12/01/24 11:12 Baso # (Auto) 0.0 10^3/uL (0.0-0.1) 12/01/24 11:12 Nucleated RBC % (auto) 0 % 12/01/24 11:12 Nucleated RBCs # 0.0 /100WBC 12/01/24 11:12 Sodium 144 mmol/L (136-145) 12/01/24 11:12 Potassium 3.8 mmol/L (3.5-5.1) 12/01/24 11:12 Chloride 104 mmol/L (98-107) 12/01/24 11:12 Carbon Dioxide 29 mmol/L (22-29) 12/01/24 11:12 Anion Gap 14.8 (5-19) 12/01/24 11:12 BUN 13 mg/dL (8-23) 12/01/24 11:12 Creatinine 0.5 mg/dL (0.7-1.2) L 12/01/24 11:12 GFR Calculation Not Reportable 12/01/24 11:12 Glucose 112 mg/dL (65-115) 12/01/24 11:12 Calculated Osmolality 299 mOsm/kg (285-295) H 12/01/24 11:12 Lactic Acid 1.2 mmol/L (0.5-2.2) 12/01/24 13:40 Calcium 8.7 mg/dL (8.5-10.5) 12/01/24 11:12 Total Bilirubin 0.9 mg/dL (0.15-1.2) 12/01/24 11:12 AST 11 U/L (0-40) 12/01/24 11:12 ALT 12 U/L (0-41) 12/01/24 11:12 Alkaline Phosphatase 87 U/L (40-130) 12/01/24 11:12 Total Protein 6.5 g/dL (6.6-8.7) L 12/01/24 11:12 Albumin 3.4 g/dL (3.5-5.2) L 12/01/24 11:12 Globulin 3.1 g/dL (1.3-4.6) 12/01/24 11:12 Urine Color Yellow (Yellow) 12/01/24 11:00 Urine Appearance Clear (CLEAR) 12/01/24 11:00 Urine pH 5.5 (5-7) 12/01/24 11:00 Ur Specific Atkins 1.018 (1.005-1.030) 12/01/24 11:00 Urine Protein 2+ (Negative) A 12/01/24 11:00 Urine Glucose (UA) Negative (Normal) 12/01/24 11:00 Urine Ketones Trace (Negative) 12/01/24 11:00 Urine Blood Negative (Negative) 12/01/24 11:00 Urine Nitrate Negative (Negative) 12/01/24 11:00 Urine Bilirubin Negative (Negative) 12/01/24 11:00 Urine Urobilinogen 1.0 mg/dL (Negative) 12/01/24 11:00 Ur Leukocyte Esterase Negative (Negative) 12/01/24 11:00 Urine RBC 0-2 /hpf (0-2) 12/01/24 11:00 Urine WBC 0-5 /hpf (0-5) 12/01/24 11:00 Ur Squamous Epith Cells 0-5 /hpf (0-5) 12/01/24 11:00 Amorphous Sediment Not Reportable 12/01/24 11:00 Urine Bacteria None seen /hpf (NONE) 12/01/24 11:00 Hyaline Casts 2.05 /lpf 12/01/24 11:00 Influenza A (PCR) Negative (Negative) 12/01/24 11:14 Influenza Type B (PCR) Negative (Negative) 12/01/24 11:14 RSV (PCR) Negative (Negative) 12/01/24 11:14 SARS-CoV-2 (PCR) Negative (Negative) 12/01/24 11:14 All radiology interpretation(s) finalized by discharge Discharge Plan Discharge Patient Disposition: Admitted As Inpatient Admit Provider: Nicky Milner Clinical Impression: Pneumonia, Fracture of greater trochanter, Emphysema lung, History of CVA (cerebrovascular accident) Condition: Stable Coding Level of Care Code ED Security Associate for Keke Wild
--- NOTE | 2024-12-01 10:53 | XR_ITS ---
WS: [id number] XR hip LT 2-3V wo/w pel* [id number] REASON FOR EXAM: Trauma FINDINGS: Moderate osteoarthritis of the left hip joint. No acute fracture of the femoral neck or proximal femoral shaft. Superior and inferior pubic rami intact. Acetabulum intact. XR/XR hip LT 2-3V wo/w pel* [id number] IMPRESSION: No acute abnormality.
[2024-12-01 11:20] LABS: Hematocrit 42.5 % (37-53); Hemoglobin 13.70 g/dL (11.27-16.99); Mean Corpuscular HGB Conc 32.2 g/dL (30-55); Mean Corpuscular Hemoglobin 33.0 pg (27-33); Mean Corpuscular Volume 102.4 fl (82-101); Nucleated Red Blood Cells % 0 %; Platelet Count 158 10^3/cmm (157-399); Red Blood Count 4.15 10^6/uL (3.85-5.65); White Blood Count 10.30 10^3/uL (3.29-11.43)
[2024-12-01 11:24] LABS: Glucose Urine UA Negative (Normal); Nitrate Urine Negative (Negative); Specific Gravity, Urine 1.018 (1.005-1.030)
[2024-12-01 11:26] LABS: Add Urine Microscopic? YES
[2024-12-01 11:36] LABS: Alanine Aminotransferase 12 U/L (0-41); Albumin Level 3.4 g/dL (3.5-5.2); Alkaline Phosphatase 87 U/L (40-130); Anion Gap 14.8 (5-19); Aspartate Amino Transferase 11 U/L (0-40); Blood Urea Nitrogen 13 mg/dL (8-23); Calcium 8.7 mg/dL (8.5-10.5); Carbon Dioxide 29 mmol/L (22-29); Chloride 104 mmol/L (98-107); Globulin 3.1 g/dL (1.3-4.6); Glucose 112 mg/dL (65-115); Osmolality Calculated 299 mOsm/kg (285-295); Potassium 3.8 mmol/L (3.5-5.1); Sodium 144 mmol/L (136-145); Total Protein 6.5 g/dL (6.6-8.7)
--- OUTSIDE RECORDS SUMMARY | 2024-12-01 11:36 | XMS_ITS | Patient Health Record ---
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 Name Role Phone Mireya Quinones APRN Primary Care Provider Harry Chacon Unavailable [phone] Cara Turcios Unavailable Reason For Referral No Information Medications Medication SIG (Take, Route, Frequency, Duration) Notes Start Date End Date Status Finasteride 5 MG Tablet 1 tablet Orally Once a day Active Aspirin 81 Active HYDROcodone-Acetaminophen 5-325 MG Tablet 1 tablet as needed Orally every 6 hrs Active Tamsulosin HCl 0.4 MG Capsule 1 capsule Orally Once a day Active Multivitamin Active Social History Tobacco Use: Social History Observation Description Date Details (start date - stop date) Current some da y smoker NA - NA Social History Drug/Alcohol: Social Info Question Answer Notes AUDIT-C (Standard) Did you have a drink containing alcohol in the past year? No Points 0 Interpretation Negative Tobacco Use: Social Info Question Answer Notes Tobacco Control (Standard) Tobacco use: Current some d ay smoker Problems Problem Type SNOMED Code ICD Code Onset Dates Problem Status W/U Status Risk Notes Problem Lumbar spondylosis (146633791) Lumbar spondylosis (M47.816) Active confirmed Problem Degeneration of lumbar intervertebral disc (25091939) Disc degeneration, lumbar (M51.36) Active confirmed Encounters Encounter Location Date Provider Diagnosis [facility] [address] [address] 02/24/2024 Cara Turcios Plan Of Treatment Pending Test Test Name Order Date CT L-Spine w/o Contrast incl [id number] 08/20/2023 CT L-Spine w/o Contrast incl [id number] 08/06/2023 Schedule Confirmation 08/20/2023 Schedule Confirmation 08/20/2023 Schedule Confirmation 10/21/2023 Schedule Confirmation 10/21/2023 Insurance Providers Payer Name Payer Address Payer Phone Subscriber Number Group Number Insured Name Patient Relationship to Insured Coverage Start Date Coverage End Date [place] [address] [place] [id number] JESSIE FERNANDEZ Self - patient is the insured [place] [address] [employer] [place] [phone] [id number] JESSIE FERNANDEZ Self - patient is the insured Medical (General) History Medical History History ICD Code measles mumps chicken pox arthritis bladder infections\ back trouble stroke Surgical History Surgery Date(Month/Year) right leg Hospitalization History Reason Date(Month/Year) small stroke covid
--- OUTSIDE RECORDS SUMMARY | 2024-12-01 11:37 | XMS_ITS | Patient Health Record ---
Author Organization [facility] Address [address] [place] [address] Care Team Providers Care Rn Transplant Name Role Phone Mireya Quinones Primary Care Provider MYLES Kwan Unavailable [phone] KAYLA ABBOTT Unavailable [phone] Allergies No Known Allergies Results Component Value Reference Range Notes Basic Metabolic Panel Reviewed date:04/07/2024 05:00:50 PM Interpretation: Performing Lab: Notes/Report: Use of this assay is not recommended for patients undergoing treatment with phenindione, due to the potential for falsely depressed results. Testing performed at: [address] [place] [address] CLIA ID [id number] Calculation performed from GFR calculator provided by the [employer]. Glomerular Filtration rate(GRF) is the best overall index of kidney function. Normal GFR varies according to age,sex, body size, and declines with age. The National Kid[employer] Foundation recommends using the CKD-EPI Creatinine Equation(2020) to estimate GFR. Y-jurlcn-p-benzoquinone imine (NAPQI) is a metabolite of acetaminophen, NAPQI concentrations of apparoximately 10 mg/L correlation to toxic levels of acetaminophen demonstrates a greater than or equil to 10% change in results. NAPQI concentrations greater than this may lead to falsely depressed results for patient samples. Testing performed at [facility], [address] [place], [place] [address] [address]. CLIA ID#: [id number] Sodium 142 136-145 MMOL/L Potassium 4.2 3.5-5.1 MMOL/L Chloride 102 98-107 MMOL/L CO2 33.0 20.0-31.0 MMOL/L Glucose Serum 90 71-110 MG/DL BUN 17 7-21 MG/DL Creat .53 .57-1.17 MG/DL GFR 101.4 Anion Gap 11 5-15 BUN/Creat Ratio 32.1 12.0-20.0 % Calcium 9.4 8.7-10.4 MG/DL Osmo Serum,Calculated 295 280-300 MOSM/KG CBC w/ Auto Diff Reviewed date:04/07/2024 05:00:50 PM Interpretation: Performing Lab: Notes/Report: Testing performed at: [place] [address] CLIA ID [id number] WBC 7.3 4.5-11.0 X10'3 RBC 4.57 4.50-5.90 X10'6 Hgb 15.1 13.5-17.5 G/DL Hct 46.2 41.0-53.0 % MCV 101.1 80.0-100.0 FL MCH 33.0 27.0-31.0 PG MCHC 32.7 31.0-37.0 G/DL Platelet 262 150-400 X10'3 RDW-SD 49.3 35.0-49.0 FL RDW-CV 13.2 12.2-15.6 % MPV 9.7 9.2-12.0 FL Neutro Auto% 61.8 40.0-70.0 % Lymph Auto% 27.2 22.0-44.0 % Bledsoe Auto% 7.8 3.0-7.0 % Eos Auto% 2.2 2.0-4.0 % Baso Auto% 0.7 0.0-1.0 % Imm Gran% .3 .0-.4 % Neutro Abs 4.54 .80-7.70 Absolute Neutrophil Count 4540 Lymph Abs 2.00 .10-4.10 Bledsoe Abs .57 .20-1.00 Eos Abs .16 .00-.40 Baso Abs .05 .00-.20 Imm Gran Abs .02 .00-.10 NRBC# .00 .00-.20 NRBC% .00 .00-.20 /100 intact WBC's Culture Urine Reflex Reviewed date:04/13/2024 01:32:30 PM Interpretation: Performing Lab: Notes/Report: Testing performed at: [address] [place] [address] CLIA ID [id number] Culture Urine Reflex JESUS Multani Culture Urine Reflex t: Culture Urine Reflex Culture Urine Reflex Accessio [id number] Culture Urine Reflex n: Culture Urine Reflex Microbiology Culture Urine Reflex PROCEDURE: Culture Urine Reflex [] Culture Urine Reflex SOURCE: Urine BODY SITE: Culture Urine Reflex COLLECTED DATE/TIME : 04/07/2024 12:41 POULTRY PACKER RECEIVED DATE/TIME: 04/07/2024 13:28 POULTRY PACKER Culture Urine Reflex START DATE/TIME: 04/07/2024 13:28 POULTRY PACKER FREE TEXT SOURCE: Culture Urine Reflex FINAL REPORT Culture Urine Reflex Final Report [] Culture Urine Reflex Verified Date/Time: 04/09/2024 06:23 POULTRY PACKER Culture Urine Reflex <10,000 cfu/ml Mixe d Superficial Loretta Chest PA/Lat--[id number] Reviewed date:04/07/2024 05:00:50 PM Interpretation: Performing Lab: Notes/Report: See Below For Report Chest PA/Lat Read See Below For Report Creat Proc NC Reviewed date:03/23/2024 11:10:23 AM Interpretation: Performing Lab: Notes/Report: Creat .50 .57-1.17 MG/DL Use of this assay is not recommended for patients undergoing treatment with phenindione, due to the potential for falsely depressed results. Testing performed at: [address] [place] [address] CLIA ID [id number] G-xvxeyr-l-benzoquinon e imine (NAPQI) is a metabolite of acetaminophen, NAPQI concentrations of apparoximately 10 mg/L correlation to toxic levels of acetaminophen demonstrates a greater than or equil to 10% change in results. NAPQI concentrations greater than this may lead to falsely depressed results for patient samples. BUN Proc NC Reviewed date:03/23/2024 11:10:27 AM Interpretation: Performing Lab: Notes/Report: BUN 17 7-21 MG/DL Testing perform ed at: [address] [place] [address] CLIA ID [id number] MRI Pelvis w/ + w/o Cont--[id number] Reviewed date:03/23/2024 01:14:53 PM Interpretation: Performing Lab: Notes/Report: See Below For Report MRI Pelvis w/ + w/o Cont Read See Below For Report CT Chest, Abdomen, Pelvis w/ + w/o Contrast--[id number] Reviewed date:03/23/2024 01:14:49 PM Interpretation: Performing Lab: Notes/Report: See Below For Report CT Chest, Abdomen, Pelvis w/ + w/o Contr Read See Below For Report Urinalysis, Routine Reviewed date:03/16/2024 02:37:29 PM Interpretation: Performing Lab: Notes/Report: Urine-Color melissa Appearance clear Glucose - Bilirubin - Ketones - Specific [place] 1.030 Occult Blood 1+ pH 6.0 Urine Protein 1+ Urobilinogen,Semi-Qn - Nitrite, Urine - WBC Esterase - Reason For Referral No Information Medications Medication SIG (Take, Route, Frequency, Duration) Notes Start Date End Date Status Aspirin Adult Low Dose 81 MG 1 tablet Orally Once a day Active Vitamin D2 Active Finasteride 5 MG 1 tablet Orally Once a day Active Tamsulosin HCl 0.4 MG 1 capsule Orally O nce a day Active Social History Tobacco Use: Social History Observation Description Date Details (start date - stop date) Current Smoker NA - NA Tobacco Control (Standard) Question Answer Notes Tobacco use: Current smoker How often do you smoke cigarettes? Every day How many cigarettes a day do you smoke? 21-30 Additional Findings: Tobacco user Chews fine cut tobacco Section Notes: Smoker - 1 PPD and chews tob acco also Smoker - 1 PPD and chews tob acco also Problems Problem Type SNOMED Code ICD Code Onset Dates Problem Status W/U Status Risk Notes Problem Current smoker (87650548) Current smoker (F17.200) Active confirmed Problem COPD - Chronic obstructive pulmonary disease (87398937) Chronic obstructive pulmonary disease, unspecified COPD type (J44.9) Active confirmed Problem Enlarged prostate (638993928) Enlarged prostate (N40.0) Active confirmed Problem Disorder of kidney and/or ureter (427835675) Left renal mass (N28.89) Active confirmed Problem Adenocarcinoma of prostate (073580628) Adenocarcinoma of prostate (C61) Active confirmed Problem Lower urinary tract symptoms due to benign prostatic hypertrophy (78849546504668) Benign prostatic hyperplasia with lower urinary tract symptoms, symptom details unspecified (N40.1) Active confirmed Problem Decrease in appetite (finding) (39295006) Decreased appetite (R63.0) Active confirmed Vital Signs Heart Rate 101 /min 03/23/2024 Height-cm 182.88 cm 03/23/2024 Blood pressure diastolic 48 mm Hg 03/23/2024 Weight-kg 52.16 kg 03/23/2024 Height 72 in 03/23/2024 Blood pressure systolic 120 mm Hg 03/23/2024 Weight 115 lbs 03/23/2024 BMI 15.6 kg/m2 03/23/2024 Procedures Procedure Date Ordered Date Performed Result Body Sit e Bladder Scan 03/16/2024 03/16/2024 109 mL Bladder Scan 03/23/2024 03/23/2024 N/A Encounters Encounter Location Date Provider Diagnosis [facility] [employer] [address] [place] [address] 03/16/2024 KAYLA ABBOTT Rising PSA level R97 .20 ; Enlarged prostate N40.0 ; Left renal mass N28.89 ; Decreased appetite R63.0 ; Weight loss R63.4 and Current smoker F17.200 [facility] [employer] [address] [place] [address] 03/23/2024 MYLES HUFF Rising PSA level R97 .20 ; Enlarged prostate N40.0 ; Left renal mass N28.89 ; Decreased appetite R63.0 ; Weight loss R63.4 and Current smoker F17.200 [facility] [employer] [address] [place] [address] 04/10/2024 MYLES HUFF Adenocarcinoma of prostate C61 [facility] [employer] [address] [place] [address] 02/21/2024 MYLES HUFF [facility] [employer] [address] [place] [address] 04/06/2024 MYLES HUFF Chronic obstructive pulmonary disease, unspecified COPD type J44.9 ; Pre-op evaluation Z01.818 and Benign prostatic hyperplasia with lower urinary tract symptoms, symptom details unspecified N40.1 Assessments Encounter Date Diagnosis (ICD Code) Assessment Notes Treatment Notes Treatment Clinical Notes Section Notes 03/16/2024 Enlarged prostate (ICD-10 - N40.0) 03/16/2024 Rising PSA level (ICD-10 - R97.20) 03/23/2024 Rising PSA level (ICD-10 - R97.20) 78 y/o M with elevated PSA. Enlarged prostate. Left renal mass. PVR 107cc. MRI obtained on 03/23/24 resulting in large prostate 73 cc. 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 COPD and emphysematous changes are noted with a consolidating infiltrate process in the right lower lobe and some mild fullness of the right hilar soft tissues. Discussed continued surveillance of Kidney with imaging vs biopsy of the kidney. Pt elects to surveillance with imaging. I recommend physical therapy for his back pain. With elevated PSA I recommend obtaining a biopsy of prostate vs continue surveillance with PSA checks. Explained how procedure is performed along with R/B/A and post-operative care. Pt and daughter elect to Biopsy and will schedule next available. Return post op Plan: recommend Physical therapy for his back [...] and it is both accurate and complete. 04/06/2024 Chronic obstructive pulmonary disease, unspecified COPD type (ICD-10 - J44.9) 04/10/2024 Adenocarcinoma of prostate (ICD-10 - C61) 04/06/2024 Pre-op evaluation (ICD-10 - Z01.818) 03/16/2024 Left renal mass (ICD-10 - N28.89) 03/23/2024 Enlarged prostate (ICD-10 - N40.0) 78 y/o M with elevated PSA. Enlarged prostate. Left renal mass. PVR 107cc. MRI obtained on 03/23/24 resulting in large prostate 73 cc. 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 COPD and emphysematous changes are noted with a consolidating infiltrate process in the right lower lobe and some mild fullness of the right hilar soft tissues. Discussed continued surveillance of Kidney with imaging vs biopsy of the kidney. Pt elects to surveillance with imaging. I recommend physical therapy for his back pain. With elevated PSA I recommend obtaining a biopsy of prostate vs continue surveillance with PSA checks. Explained how procedure is performed along with R/B/A and post-operative care. Pt and daughter elect to Biopsy and will schedule next available. Return post op Plan: recommend Physical therapy for his back [...] and it is both accurate and complete. 03/16/2024 Decreased appetite (ICD-10 - R63.0) 04/06/2024 Benign prostatic hyperplasia with lower urinary tract symptoms, symptom details unspecified (ICD-10 - N40.1) 03/23/2024 Left renal mass (ICD-10 - N28.89) 78 y/o M with elevated PSA. Enlarged prostate. Left renal mass. PVR 107cc. MRI obtained on 03/23/24 resulting in large prostate 73 cc. 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 COPD and emphysematous changes are noted with a consolidating infiltrate process in the right lower lobe and some mild fullness of the right hilar soft tissues. Discussed continued surveillance of Kidney with imaging vs biopsy of the kidney. Pt elects to surveillance with imaging. I recommend physical therapy for his back pain. With elevated PSA I recommend obtaining a biopsy of prostate vs continue surveillance with PSA checks. Explained how procedure is performed along with R/B/A and post-operative care. Pt and daughter elect to Biopsy and will schedule next available. Return post op Plan: recommend Physical therapy for his back pain -Will continue surveillance of kidney with Imaging - Schedule MRI fusion PNBx in OR - RTC post op I, Nathanael Kathleen am scribing for, and in the presence of, Dr. Huff. I, Dr. Myles Huff, personally performed the services prescribed in this documentation, as scribed by Lauren Fuentes, in my presence, and it is both accurate and complete. 03/23/2024 Decreased appetite (ICD-10 - R63.0) 78 y/o M with elevated PSA. Enlarged prostate. Left renal mass. PVR 107cc. MRI obtained on 03/23/24 resulting in large prostate 73 cc. 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 COPD and emphysematous changes are noted with a consolidating infiltrate process in the right lower lobe and some mild fullness of the right hilar soft tissues. Discussed continued surveillance of Kidney with imaging vs biopsy of the kidney. Pt elects to surveillance with imaging. I recommend physical therapy for his back pain. With elevated PSA I recommend obtaining a biopsy of prostate vs continue surveillance with PSA checks. Explained how procedure is performed along with R/B/A and post-operative care. Pt and daughter elect to Biopsy and will schedule next available. Return post op Plan: recommend Physical therapy for his back [...] and it is both accurate and complete. 03/16/2024 Weight loss (ICD-10 - R63.4) 03/16/2024 Current smoker (ICD-10 - F17.200) 03/23/2024 Weight loss (ICD-10 - R63.4) 78 y/o M with elevated PSA. Enlarged prostate. Left renal mass. PVR 107cc. MRI obtained on 03/23/24 resulting in large prostate 73 cc. 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 COPD and emphysematous changes are noted with a consolidating infiltrate process in the right lower lobe and some mild fullness of the right hilar soft tissues. Discussed continued surveillance of Kidney with imaging vs biopsy of the kidney. Pt elects to surveillance with imaging. I recommend physical therapy for his back pain. With elevated PSA I recommend obtaining a biopsy of prostate vs continue surveillance with PSA checks. Explained how procedure is performed along with R/B/A and post-operative care. Pt and daughter elect to Biopsy and will schedule next available. Return post op Plan: recommend Physical therapy for his back [...] and it is both accurate and complete. 03/23/2024 Current smoker (ICD-10 - F17.200) 78 y/o M with elevated PSA. Enlarged prostate. Left renal mass. PVR 107cc. MRI obtained on 03/23/24 resulting in large prostate 73 cc. 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 COPD and emphysematous changes are noted with a consolidating infiltrate process in the right lower lobe and some mild fullness of the right hilar soft tissues. Discussed continued surveillance of Kidney with imaging vs biopsy of the kidney. Pt elects to surveillance with imaging. I recommend physical therapy for his back pain. With elevated PSA I recommend obtaining a biopsy of prostate vs continue surveillance with PSA checks. Explained how procedure is performed along with R/B/A and post-operative care. Pt and daughter elect to Biopsy and will schedule next available. Return post op Plan: recommend Physical therapy for his back [...] and it is both accurate and complete. 03/16/2024 Other Unable to give UA due to recent void. Bladder scan 109ml. Obtain new imaging with CT C/A/P with and without contrast to assess L renal mass and possible metastatic disease due to c/o decreased appetitie and significant weight loss. He also needs an MRI of Pelvis due to rising PSA and high concern for malignancy. RTC with imaging and review with Dr. Huff. 05/25/2024 78 y/o M with elevated PSA. Enlarged [...] both accurate and complete. Plan Of Treatment Pending Test Test Name Order Date BUN, Creatinine 03/16/2024 MRI : Pelvis with and without Contrast 7 2197 03/16/2024 Electrocardiogram, 12 Lead Tracing-[id number] 04/06/2024 Insurance Providers Payer Name Payer Address Payer Phone Subscriber Number Group Number Insured Name Patient Relationship to Insured Coverage Start Date Coverage End Date [place] [address] [address] [place], [place] [id number] Jesus Posadas Self - patient is the insured [place] [address] [place] [facility] [place] [id number] Jesus Posadas Self - patient is the insured Medical (General) History Medical History History ICD Code Difficulty urinating Elevated PSA Erectile Dysfunction Nocturia x 3 Urinary tract infection Stroke Degenerative Disc Disease
[2024-12-01 12:00] LABS: Respiratory Syncytial Virus Ce NEGATIVE (Negative); SARS-CoV-2 PCR NEGATIVE (Negative)
[2024-12-01] MEDS: morphine 4 mg/mL SDV 1 mL 2 MG IVP ×2 (13:13→14:07)
[2024-12-01] MEDS: cefTRIAXone 1,000 mg SDV 1000 MG IVP (13:33)
[2024-12-01] MEDS: methylPREDNISolone sod succ 125 mg/2 mL INJ IVP (13:33)
--- NOTE | 2024-12-01 13:36 | CT_ITS ---
WS: [id number] CT LEFT HIP, NONCONTRAST HISTORY: Pain after fall Technique: All CT scans at [facility] use at least one of these dose optimization techniques: automated exposure control; mA and/or kV adjustment per patient size (includes targeted exams where dose is matched to clinical indication); or iterative reconstruction. DLP: 258.38 mGy.cm COMPARISON: 12/01/2024 Bones are osteopenic. Mild narrowing of the hip joint. Mildly comminuted but nondisplaced fracture involving the greater trochanter. The fracture extends inferiorly along into the subtrochanteric region. Lesser trochanter appears intact. No acetabular fracture. No left-sided pubic rami fracture. Heavy calcification in the iliac and femoral artery. Prostate gland is significantly enlarged encroaching into the bladder. There is mild bladder wall thickening is which is related to a bladder outlet obstruction. LEFT lateral bladder diverticula. Cyst in the LEFT scrotal wall. No free fluid. CT/CT hip LT wo con* [id number] IMPRESSION: 1. Nondisplaced LEFT greater trochanter fracture. Fracture line does extend in to the subtrochanteric portion of the hip. 2. No acetabular fracture. 3. Markedly enlarged prostate gland with bladder wall thickening and diverticu la.
--- NOTE | 2024-12-01 14:01 | PC.PHAR ---
Aleisha (spouse) states she gives pt his medications and she finds them on the night stand so she puts them back in the bottle. Pt has done this for 2 weeks.
[2024-12-01 14:09] LABS: Lactic Sepsis W/Reflex 1.2 mmol/L (0.5-2.2)
[2024-12-01] MEDS: methylPREDNISolone sod succ 40 mg/mL INJ IVP (15:34)
[2024-12-01] MEDS: heparin 5,000 unit/mL INJ 1 mL 5000 UNIT SUBCUT (15:35)
--- NOTE | 2024-12-01 15:43 | P.HP_ITS ---
Providers/Chief Complaint 2 Admitting Physician: Nicky Milner MD Primary Care Provider: LUIS A Mathews Chief Complaint: Fell Yesterday, LT Side weakness History of Present Illness Jesus Posadas is a 79 year old male with a past medical history of stroke with residual left-sided weakness, failure to thrive, BMI 13.9 kg, lives at home, past history of smoking who presented with having sustained 2 falls yesterday. Patient reports these to be mechanical falls without any head strike loss of consciousness or other concerning features of syncope. After his fall, he has been unable to bear weight on his left side. He states his leg gives way under him on attempting to stand up. He was brought into the emergency room due to left hip pain and inability to bear weight. He has been found to have a left greater trochanter fracture on imaging today. He is on oxygen at 4 L/min at rest today. While the patient denies being on oxygen previously, his son states he has been recommended to wear this in the past but has not been compliant. In reviewing his several past chest x-rays, patient has significant emphysematous disease no does not carry a formal diagnosis of COPD. He used to be a heavy smoker in the past. His son reports that patient has not had an appetite since a single stroke about 8 years ago. States he has early satiety and has no appetite. He has had a significant weight loss. Patient denies any abdominal pain. Denies any vomiting nausea or change in his bowel habits. No history of blood in stools. Review of Systems 2 General: Reports: 10 or more systems reviewed and unremarkable except in HPI and below Const: Denies: fever(s), chills or body aches Eyes: Denies: change in vision, blurry vision or photophobia ENMT: Reports: hoarseness; Denies: throat pain, enlarged tonsils, odynophagia or nasal congestion Card: Denies: chest pain, palpitations, irregular heart rhythm, edema, swelling of feet/ankles, lightheadedness, pre-syncope, dyspnea on exertion or orthopnea Resp: Denies: dyspnea, productive cough, non-productive cough, wheezing, stridor, pain on inspiration, change in phlegm color, hemoptysis or chest congestion GI: Denies: abdominal pain, nausea, vomiting, hematemesis, coffee ground emesis, dysphagia, heartburn, diarrhea, constipation, GI cramping, change in stool character, hematochezia or melena : Denies: flank pain, dysuria, urinary frequency, urinary urgency, urinary hesitancy or hematuria Musc: Denies: neck pain, back pain, extremity pain, joint swelling, joint warmth or deformity Neuro: Denies: headache(s), numbness in extremities, weakness in extremities, sensory changes, difficulty walking, frequent falls, dizziness, vertigo, behavioral changes, Slurred speech present or seizure-like activity Psych: Denies: anxiety, depression, suicidal ideation or homicidal ideation Endo: Denies: polyuria, polydipsia, tired all the time, cold intolerance or hot flashes Asif/Lymph: Denies: easy bruising or easy bleeding Medications/Allergies Home Medications ?Medication ?Instructions ?Recorded ?Confirmed ?Last Taken ?Type aspirin 81 mg tablet,delayed 81 mg PO DAILY #30 tabs 0 10/28/22 12/01/24 2 Weeks Ago Rx release ~11/17/24 nebulizer machine with tubing and #1 ea 03/19/2312/01 Unknown Rx delivery device tamsulosin 0.4 mg capsule 0.4 mg PO DAILY #90 caps 12/01/24 2 Weeks Ago Rx ~11/17/24 Allergies Allergy/AdvReac Type Severity Reaction Status Date / Time No Known Allergies Allergy Verified 02/17/24 11:11 PFSH Acute 2 PFSH: Medical History BPH loc w urin obs/LUTS 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 Weight loss Anorexia COPD (chronic obstructive pulmonary disease) Smoker Renal mass since 2019 COVID-19 No significant past medical history Surgical History History of surgery on lower extremity No significant past surgical history Family History Denies family history of Cancer Social History Smoking and tobacco/nicotine status: current every day tobacco/nicotine user cigarettes Years cigarettes smoked: 50 Alcohol intake: current Alcohol intake frequency: few times a month Substance/Drug Use: never Caregiver/support person: Yes Lives independently: Yes Household members: spouse Housing: House Marital status: Current occupational status: retired Vitals/I&O/Wt Last Vital Signs Temp 96.9 F L 12/01/24 14:42 Pulse 112 H 12/01/24 14:42 Resp 19 H 12/01/24 14:42 BP 118/65 12/01/24 14:42 Pulse Ox 95 12/01/24 14:42 O2 Del Method Nasal Cannula 12/01/24 14:42 O2 Flow Rate 5 12/01/24 14:08 Weight last 48 hrs Weight 47.627 kg Physical Exam 2 Narrative: General: No acute distress, AO x3 HEENT: PERRLA, pupils bilaterally equal and reactive, pallors not present Chest: Normal vesicular breath sounds, no added sounds, equal good air entry bilaterally CVS: S1-S2 regular, no murmurs, no tachycardia, no gallops, no rubs Abdomen: Soft, nontender, no organomegaly, bowel sounds present Neuro: No focal deficits, no facial deformity, AO x3 Data 12/01/24 11:12 12/01/24 11:12 Micro: Microbiology 12/01/24 13:40 Blood Culture - Preliminary Blood SPECIMEN COLLECTED 12/01/24 13:40 Blood Culture - Preliminary Blood SPECIMEN COLLECTED Other data: Radiology Impressions Chest X-Ray 12/01/24 10:11 IMPRESSION: Obstructive lung disease. Right lower lung abnormality as above which may represent acute or subacute pneumonitis and atelectasis. Head CT 12/01/24 10:11 IMPRESSION: 1. No acute intracranial hemorrhage or edema. 2. Numerous small lacunar infarcts in the RIGHT basal ganglia and adjacent to the anterior horn LEFT lateral ventricle. No acute infarcts. 3. No scalp hematoma or fracture. Hip/Pelvis X-Ray 12/01/24 10:53 IMPRESSION: No acute abnormality. Hip CT 12/01/24 13:36 IMPRESSION: 1. Nondisplaced LEFT greater trochanter fracture. Fracture line does extend into the subtrochanteric portion of the hip. 2. No acetabular fracture. 3. Markedly enlarged prostate gland with bladder wall thickening and diverticula. Laboratory Results WBC 10.30 10^3/uL (3.29-11.43) 12/01/24 11:12 RBC 4.15 10^6/uL (3.85-5.65) 12/01/24 11:12 Hgb 13.70 g/dL (11.27-16.99) 12/01/24 11:12 Hct 42.5 % (37-53) 12/01/24 11:12 MCV 102.4 fl (82-101) H 12/01/24 11:12 MCH 33.0 pg (27-33) 12/01/24 11:12 MCHC 32.2 g/dL (30-55) 12/01/24 11:12 RDW 13.7 % (12.1-15.1) 12/01/24 11:12 Plt Count 158 10^3/cmm (157-399) 12/01/24 11:12 MPV 9.0 fL (7.4-10.4) 12/01/24 11:12 Neut % (Auto) 77.5 % 12/01/24 11:12 Lymph % (Auto) 12.0 % 12/01/24 11:12 [place] % (Auto) 8.6 % 12/01/24 11:12 Eos % (Auto) 1.0 % 12/01/24 11:12 Baso % (Auto) 0.4 % 12/01/24 11:12 Neut # (Auto) 7.98 10^3/uL (1.8-7.7) H 12/01/24 11:12 Lymph # (Auto) 1.2 10^3/uL (0.8-4.8) 12/01/24 11:12 [place] # (Auto) 0.9 10^3/uL (0.2-0.9) 12/01/24 11:12 Eos # (Auto) 0.1 10^3/uL (0.0-0.8) 12/01/24 11:12 Baso # (Auto) 0.0 10^3/uL (0.0-0.1) 12/01/24 11:12 Nucleated RBC % (auto) 0 % 12/01/24 11:12 Nucleated RBCs # 0.0 /100WBC 12/01/24 11:12 Sodium 144 mmol/L (136-145) 12/01/24 11:12 Potassium 3.8 mmol/L (3.5-5.1) 12/01/24 11:12 Chloride 104 mmol/L (98-107) 12/01/24 11:12 Carbon Dioxide 29 mmol/L (22-29) 12/01/24 11:12 Anion Gap 14.8 (5-19) 12/01/24 11:12 BUN 13 mg/dL (8-23) 12/01/24 11:12 Creatinine 0.5 mg/dL (0.7-1.2) L 12/01/24 11:12 GFR Calculation Not Reportable 12/01/24 11:12 Glucose 112 mg/dL (65-115) 12/01/24 11:12 Calculated Osmolality 299 mOsm/kg (285-295) H 12/01/24 11:12 Lactic Acid 1.2 mmol/L (0.5-2.2) 12/01/24 13:40 Calcium 8.7 mg/dL (8.5-10.5) 12/01/24 11:12 Total Bilirubin 0.9 mg/dL (0.15-1.2) 12/01/24 11:12 AST 11 U/L (0-40) 12/01/24 11:12 ALT 12 U/L (0-41) 12/01/24 11:12 Alkaline Phosphatase 87 U/L (40-130) 12/01/24 11:12 Total Protein 6.5 g/dL (6.6-8.7) L 12/01/24 11:12 Albumin 3.4 g/dL (3.5-5.2) L 12/01/24 11:12 Globulin 3.1 g/dL (1.3-4.6) 12/01/24 11:12 Urine Color Yellow (Yellow) 12/01/24 11:00 Urine Appearance Clear (CLEAR) 12/01/24 11:00 Urine pH 5.5 (5-7) 12/01/24 11:00 Ur Specific [place] 1.018 (1.005-1.030) 12/01/24 11:00 Urine Protein 2+ (Negative) A 12/01/24 11:00 Urine Glucose (UA) Negative (Normal) 12/01/24 11:00 Urine Ketones Trace (Negative) 12/01/24 11:00 Urine Blood Negative (Negative) 12/01/24 11:00 Urine Nitrate Negative (Negative) 12/01/24 11:00 Urine Bilirubin Negative (Negative) 12/01/24 11:00 Urine Urobilinogen 1.0 mg/dL (Negative) 12/01/24 11:00 Ur Leukocyte Esterase Negative (Negative) 12/01/24 11:00 Urine RBC 0-2 /hpf (0-2) 12/01/24 11:00 Urine WBC 0-5 /hpf (0-5) 12/01/24 11:00 Ur Squamous Epith Cells 0-5 /hpf (0-5) 12/01/24 11:00 Amorphous Sediment Not Reportable 12/01/24 11:00 Urine Bacteria None seen /hpf (NONE) 12/01/24 11:00 Hyaline Casts 2.05 /lpf 12/01/24 11:00 Influenza A (PCR) Negative (Negative) 12/01/24 11:14 Influenza Type B (PCR) Negative (Negative) 12/01/24 11:14 RSV (PCR) Negative (Negative) 12/01/24 11:14 SARS-CoV-2 (PCR) Negative (Negative) 12/01/24 11:14 A&P Assessment and plan 1. Fracture of greater trochanter: 79-year-old male with a past medical history of CVA, emphysema who is presenting today with mechanical fall at home resulting in fracture of the greater trochanter. He has been unable to bear weight. Orthopedic service has been consulted As needed morphine and hydrocodone APAP ordered for pain management. 2. Emphysema lung: emphysema likely dating back several years. Patient does not carry a formal diagnosis of COPD. Radiological read of possible pneumonitis, however in comparing past scans I do not see any new infiltrates today. He denies any cough. No fever. No clinical signs of pneumonia. prn duoneb nebulization has been ordered Supplemental O2 to maintain saturation) 90%. He has an oxygen requirement of 4 L/min today, however per history provided by his son, this truly does not appear to be a new requirement. 3. Malnutrition: Patient with BMI of 13.9. protein energy malnutrition consult melt superintendant Add proetin supplement to each meal Plan: Dvt ppx: heparin Full code This documentation was created by [employer] supervisor stitching department software. Every effort was made to ensure accuracy of supervisor stitching department. Any obvious errors or omissions should be clarified with the author of the document. PDMP PDMP Reviewed: Not Reviewed Attestations 2 Medical Necessity Statement*: Greater than 2 midnight stay anticipated Coding Level of Care Code Acute Code for Chg Fwd Diagnoses Fracture of greater trochanter S72.113A Emphysema lung J43.9 Malnutrition E46
--- NOTE | 2024-12-01 17:32 | P.CONIM_ITS ---
Providers/Reason For Consult 2 Consulting Physician/Specialty*: Barney Hamilton MD/orthopedic surgery Reason for Consult*: Left greater trochanter fracture Attending Physician: Nicky Milner MD Primary Care Provider: LUIS A Mathews History of Present Illness History of Present Illness Jesus Posadas is a 79 year old male Review of Systems 2 Eyes: Denies: photophobia ENMT: Denies: enlarged tonsils All/Imm: Denies: acute wheezing Medications/Allergies Home Medications ?Medication ?Instructions ?Recorded ?Confirmed ?Last Taken ?Type aspirin 81 mg tablet,delayed 81 mg PO DAILY #30 tabs 0 10/28/22 12/01/24 2 Weeks Ago Rx release ~11/17/24 nebulizer machine with tubing and #1 ea 03/19/2312/01 Unknown Rx delivery device tamsulosin 0.4 mg capsule 0.4 mg PO DAILY #90 caps 12/01/24 2 Weeks Ago Rx ~11/17/24 Allergies Allergy/AdvReac Type Severity Reaction Status Date / Time No Known Allergies Allergy Verified 02/17/24 11:11 Current Medications Generic Name Dose Route Start Last Admin Trade Name Freq PRN Reason Stop Dose Admin Albuterol/Ipratropium 3 ml 12/01/24 15:15 12/01/24 16:30 Ipratropium-Albuterol 3 Ml Neb INHALATION 3 ml Q6H.RESP JONATHAN Administration Heparin Sodium (Porcine) 5,000 unit 12/01/24 15:15 12/01/24 15:35 Heparin 5,000 Unit/Ml Inj 1 Ml SUBCUT 5,000 unit Q12H JONATHAN Administration Methylprednisolone Sodium Succinate 40 mg 12/01/24 15:15 12/01/24 15:34 Methylprednisolone Sod Succ 40 Mg/Ml Inj IVP 40 mg Q24H JONATHAN Administration PFSH Acute 2 PFSH: Medical History (Updated 12/01/24 @ 17:35 by Barney Hamilton MD) BPH loc w urin obs/LUTS 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 Weight loss Anorexia COPD (chronic obstructive pulmonary disease) Smoker Renal mass since 2019 COVID-19 No significant past medical history Surgical History History of surgery on lower extremity No significant past surgical history Family History Denies family history of Cancer Social History Smoking and tobacco/nicotine status: current every day tobacco/nicotine user cigarettes Years cigarettes smoked: 50 Alcohol intake: current Alcohol intake frequency: few times a month Substance/Drug Use: never Caregiver/support person: Yes Lives independently: Yes Household members: spouse Housing: House Marital status: Current occupational status: retired Dietary Habits: Current diet type/program: regular and diabetic Caffeine: Y es Exercise: What type of physical activity do you participate in?: none P hysical activity functional status: independent ambulation Safety: Seatbelt use: sometimes Drive intoxicated or ride with intoxicated otr hazmat company driver?: never Home Safety: Water heater temperature set < 120 degrees: Yes Working smoke detector in home: Yes Fire extinguisher in home: Yes Carbon monoxide detector in home: No Personal Safety: Do you feel safe at home: Yes Victim of physical abuse: No Victim of emotional abuse: No Victim of sexual abuse: No NHANES Social Connection/Isolation: In a typical week, how many times do you talk on the telephone with family, friends, or neighbors?: Three or More Times per Week How often do you get together with friends or relatives?: Twice per Week Social isolation score (0-1 are the most socially isolated patients): 1 Vitals/I&O/Wt Last Vital Signs Temp 98.2 F 12/01/24 15:51 Pulse 94 12/01/24 16:33 Resp 18 12/01/24 16:25 BP 110/63 12/01/24 15:51 Pulse Ox 92 12/01/24 16:25 O2 Del Method Nasal Cannula 12/01/24 16:25 O2 Flow Rate 5 12/01/24 16:25 Weight last 48 hrs Weight 105 lb Physical Exam 2 Narrative: On examination patient is laying in bed having dinner. He is complaining of low back pain and hip pain. His grandson is present and indicates that he has had back pain for quite some time. He has no tenderness of the groin fold over the hip on the left. He is exquisitely tender over the greater trochanter primarily proximally on the left hip.. Data 12/01/24 11:12 12/01/24 11:12 Micro: Microbiology 12/01/24 13:40 Blood Culture - Preliminary Blood SPECIMEN COLLECTED 12/01/24 13:40 Blood Culture - Preliminary Blood SPECIMEN COLLECTED A&P Assessment and plan 1. Closed displaced fracture of greater trochanter of left femur, initial encounter: Patient has superior greater trochanter fracture of the left hip. No fracture lines down into the femoral neck or intertrochanteric region. Plan: Plan at this time is for toe-touch to nonweightbearing on the left side for the next 2 weeks. Gradual advancement of weightbearing after that. Conservative measures at this time. No indication for surgery. PDMP PDMP Reviewed: Not Reviewed Coding Level of Care Code Critical Care >/= 30 minutes Diagnoses Closed displaced fracture of greater trochanter of left femur, initial encounter S72.112A Encounter type: initial encounter Fracture type: closed Fracture alignment: displaced Laterality: left
[2024-12-02] VITALS (7 sets, daily range): BP systolic 101–125; BP diastolic 58–74; PULSE 74–95; RESP 15–21; TEMP 36.4–37.2; O2SAT 86–97
[2024-12-02] MEDS: heparin 5,000 unit/mL INJ 1 mL 5000 UNIT SUBCUT (04:10)
[2024-12-02 05:07] LABS: Hematocrit 35.0 % (37-53); Hemoglobin 11.50 g/dL (11.27-16.99); Mean Corpuscular HGB Conc 32.9 g/dL (30-55); Mean Corpuscular Hemoglobin 32.9 pg (27-33); Mean Corpuscular Volume 100.0 fl (82-101); Nucleated Red Blood Cells % 0 %; Platelet Count 134 10^3/cmm (157-399); Red Blood Count 3.50 10^6/uL (3.85-5.65); White Blood Count 6.31 10^3/uL (3.29-11.43)
[2024-12-02 05:32] LABS: Alanine Aminotransferase 9 U/L (0-41); Albumin Level 2.9 g/dL (3.5-5.2); Alkaline Phosphatase 67 U/L (40-130); Anion Gap 14.7 (5-19); Aspartate Amino Transferase 8 U/L (0-40); Blood Urea Nitrogen 16 mg/dL (8-23); Calcium 8.2 mg/dL (8.5-10.5); Carbon Dioxide 26 mmol/L (22-29); Chloride 104 mmol/L (98-107); Creatinine Clr Calc Pharmacy 54.9979; Globulin 2.8 g/dL (1.3-4.6); Glucose 152 mg/dL (65-115); Osmolality Calculated 296 mOsm/kg (285-295); Potassium 3.7 mmol/L (3.5-5.1); Sodium 141 mmol/L (136-145); Total Protein 5.7 g/dL (6.6-8.7)
[2024-12-02] MEDS: HYDROcodone-acetaminophen 5-325 mg Tablet 1 TAB PO (08:54)
--- NOTE | 2024-12-02 10:10 | PC.CHAP ---
Pastoral Care Encounter/Spiritual Assessment Type of Contact [] Declined director of recruiting visit [] Patient/Family/Request visit [] Outpatient visit [] Follow-up visit [] Physician referral [] Code/Alert [x] Routine visit [] Staff referral [] Actively dying [] Patient sleeping [x] Family support [] [] Out of room [] Palliative care [] [] Receiving care in room [] Pre-surgical visit [] Trauma [] Long length of stay [] ICU visit [] Other: Relational/Emotional Strength [x] Patient feels connected with others/family/visitors/staff [] Distress [] Loneliness/isolation [] Abandonment Spirituality of Patient [x] Person of Karie [] Attends Denominational of their Karie [x] Believes in Prayer [] Reads Bible or Jewish materials [] There are Spiritual issues to be addressed Manager Registration Interventions [x] Prayer [x] Active listening [] Non-anxious presence [x] Spiritual/emotional support [] Crisis/trauma care [] Spiritual counseling [] Bereavement support [] Provided bereavement packet [] Provided Bible/devotional materials [] Provided toy/stuffed animal, coloring book to patient or family member [] Provided Communion [] Anointing/[place] [] Salvation [x] Completed spiritual assessment [] Other: Impact on Illness or Injury [] Angry [] Fearful [] Anxious [] Often cries [] Exhaustion [] Unable to work [] Unable to attend episcopal [] Unable to walk/stand [] Unable to read [] Unable to drive [] Unable to eat/drink [] Unable to sleep [] Unable to be with family [] Patient intubated [] Other: Summary Time spent with patient 5 min
--- NOTE | 2024-12-02 12:33 | PC.NURSE ---
Patient discharged in stable condition at 1227. all monitoring equipment and iv lines removed prior to DC. All questions concerning discharge answered prior to wheeling patient to private vehicle
--- NOTE | 2024-12-02 19:02 | P.DS_ITS ---
Discharge Providers Date of Admission: 12/01/24 14:13 Date of Discharge: December 02, 2024 Attending Provider at Admission: Nicky Milner MD Attending Provider at Discharge: Nicky Milner MD Primary Care Provider: LUIS A Mathews Diagnoses at Discharge Discharge Diagnosis 1. Fracture of greater trochanter: 2. Emphysema lun. Malnutrition: Reason for Visit Reason for Visit: Fell Yesterday, LT Side weakness Hospital Course Hospital Course Jesus Posadas is a 79 year old male with a past medical history of stroke with residual left-sided weakness, failure to thrive, BMI 13.9 kg, h/o renal mass, reportedly biopsied in the past but patient declined further f/up. He presented to the hospital on 12/01 after having sustained 2 mechanical falls at home. After his fall, he has been unable to bear weight on his left side. He was found to have a left greater trochanter fracture on imaging. Orthopedics service was consulted, non operative management recommended. Pt assessment perfromed. He is on oxygen at 4 L/min at rest today. While the patient denies being on oxygen previously, his grandson states he has been recommended to wear this in the past but has not been compliant. In reviewing his several past chest x- rays, patient has significant emphysematous disease no does not carry a formal diagnosis of COPD as he has not been tested for the same. He declined arrangements for home health. He is being discharged today with recommendations for toe touch nonweight bearing on the left side for 2 weeks. F/up with PCP for malnourishment. Recommended to add ensure milkshakes with meals. Physical Exam Narrative: General: No acute distress, AO x3 HEENT: PERRLA, pupils bilaterally equal and reactive, pallors not present Chest: Normal vesicular breath sounds, no added sounds, equal good air entry bilaterally CVS: S1-S2 regular, no murmurs, no tachycardia, no gallops, no rubs Abdomen: Soft, nontender, no organomegaly, bowel sounds present Neuro: No focal deficits, no facial deformity, AO x3, power 5/5 in all limbs Discharge Data Studies Completed and Pending Completed Studies During Hospitalization Category Date Time Status CT head wo con* [id number] Stat Cat Scan 12/01/24 10:[address] hip LT wo con* [id number] Stat Cat Scan 12/01/24 13:36 Completed XR chest 1V portable [id number] Stat Exams 12/01/24 10:11 Completed XR hip LT 2-3V wo/w pel* [id number] Stat Exams 12/01/24 10:53 Completed Pending at discharge Category Date Time Status Blood Culture Stat Lab 12/01/24 13:40 Results Radiology Impressions Chest X-Ray 12/01/24 10:11 IMPRESSION: Obstructive lung disease. Right lower lung abnormality as above which may represent acute or subacute pneumonitis and atelectasis. Head CT 12/01/24 10:11 IMPRESSION: 1. No acute intracranial hemorrhage or edema. 2. Numerous small lacunar infarcts in the RIGHT basal ganglia and adjacent to the anterior horn LEFT lateral ventricle. No acute infarcts. 3. No scalp hematoma or fracture. Hip/Pelvis X-Ray 12/01/24 10:53 IMPRESSION: No acute abnormality. Hip CT 12/01/24 13:36 IMPRESSION: 1. Nondisplaced LEFT greater trochanter fracture. Fracture line does extend into the subtrochanteric portion of the hip. 2. No acetabular fracture. 3. Markedly enlarged prostate gland with bladder wall thickening and diverticula. Laboratory Results WBC 6.31 10^3/uL (3.29-11.43) 12/02/24 04:28 RBC 3.50 10^6/uL (3.85-5.65) L 12/02/24 04:28 Hgb 11.50 g/dL (11.27-16.99) 12/02/24 04:28 Hct 35.0 % (37-53) L 12/02/24 04:28 MCV 100.0 fl (82-101) 12/02/24 04:28 MCH 32.9 pg (27-33) 12/02/24 04:28 MCHC 32.9 g/dL (30-55) 12/02/24 04:28 RDW 13.4 % (12.1-15.1) 12/02/24 04:28 Plt Count 134 10^3/cmm (157-399) L 12/02/24 04:28 MPV 9.3 fL (7.4-10.4) 12/02/24 04:28 Neut % (Auto) 83.3 % 12/02/24 04:28 Lymph % (Auto) 13.8 % 12/02/24 04:28 [place] % (Auto) 2.5 % 12/02/24 04:28 Eos % (Auto) 0.0 % 12/02/24 04:28 Baso % (Auto) 0.2 % 12/02/24 04:28 Neut # (Auto) 5.26 10^3/uL (1.8-7.7) 12/02/24 04:28 Lymph # (Auto) 0.9 10^3/uL (0.8-4.8) 12/02/24 04:28 [place] # (Auto) 0.2 10^3/uL (0.2-0.9) 12/02/24 04:28 Eos # (Auto) 0.0 10^3/uL (0.0-0.8) 12/02/24 04:28 Baso # (Auto) 0.0 10^3/uL (0.0-0.1) 12/02/24 04:28 Nucleated RBC % (auto) 0 % 12/02/24 04:28 Nucleated RBCs # 0.0 /100WBC 12/02/24 04:28 Sodium 141 mmol/L (136-145) 12/02/24 04:28 Potassium 3.7 mmol/L (3.5-5.1) 12/02/24 04:28 Chloride 104 mmol/L (98-107) 12/02/24 04:28 Carbon Dioxide 26 mmol/L (22-29) 12/02/24 04:28 Anion Gap 14.7 (5-19) 12/02/24 04:28 BUN 16 mg/dL (8-23) 12/02/24 04:28 Creatinine 0.4 mg/dL (0.7-1.2) L 12/02/24 04:28 GFR Calculation Not Reportable 12/02/24 04:28 Glucose 152 mg/dL (65-115) H 12/02/24 04:28 Calculated Osmolality 296 mOsm/kg (285-295) H 12/02/24 04:28 Lactic Acid 1.2 mmol/L (0.5-2.2) 12/01/24 13:40 Calcium 8.2 mg/dL (8.5-10.5) L 12/02/24 04:28 Total Bilirubin 0.4 mg/dL (0.15-1.2) 12/02/24 04:28 AST 8 U/L (0-40) 12/02/24 04:28 ALT 9 U/L (0-41) 12/02/24 04:28 Alkaline Phosphatase 67 U/L (40-130) 12/02/24 04:28 Total Protein 5.7 g/dL (6.6-8.7) L 12/02/24 04:28 Albumin 2.9 g/dL (3.5-5.2) L 12/02/24 04:28 Globulin 2.8 g/dL (1.3-4.6) 12/02/24 04:28 Urine Color Yellow (Yellow) 12/01/24 11:00 Urine Appearance Clear (CLEAR) 12/01/24 11:00 Urine pH 5.5 (5-7) 12/01/24 11:00 Ur Specific [place] 1.018 (1.005-1.030) 12/01/24 11:00 Urine Protein 2+ (Negative) A 12/01/24 11:00 Urine Glucose (UA) Negative (Normal) 12/01/24 11:00 Urine Ketones Trace (Negative) 12/01/24 11:00 Urine Blood Negative (Negative) 12/01/24 11:00 Urine Nitrate Negative (Negative) 12/01/24 11:00 Urine Bilirubin Negative (Negative) 12/01/24 11:00 Urine Urobilinogen 1.0 mg/dL (Negative) 12/01/24 11:00 Ur Leukocyte Esterase Negative (Negative) 12/01/24 11:00 Urine RBC 0-2 /hpf (0-2) 12/01/24 11:00 Urine WBC 0-5 /hpf (0-5) 12/01/24 11:00 Ur Squamous Epith Cells 0-5 /hpf (0-5) 12/01/24 11:00 Amorphous Sediment Not Reportable 12/01/24 11:00 Urine Bacteria None seen /hpf (NONE) 12/01/24 11:00 Hyaline Casts 2.05 /lpf 12/01/24 11:00 Influenza A (PCR) Negative (Negative) 12/01/24 11:14 Influenza Type B (PCR) Negative (Negative) 12/01/24 11:14 RSV (PCR) Negative (Negative) 12/01/24 11:14 SARS-CoV-2 (PCR) Negative (Negative) 12/01/24 11:14 Vitals Last Vital Signs Temp 98.9 F 12/02/24 12:30 Pulse 82 12/02/24 12:30 Resp 21 H 12/02/24 12:30 BP 114/67 12/02/24 12:30 Pulse Ox 95 12/02/24 12:30 O2 Del Method Nasal Cannula 12/02/24 11:28 O2 Flow Rate 3 12/02/24 10:38 Discharge Plan Discharge Patient Disposition: Home Condition: Stable Prescriptions: New hydrocodone-acetaminophen 5-325 mg Tablet 1 tab PO Q8H PRN (Reason: Moderate To Severe Pain) 5 Days Qty: 15 0RF albuterol sulfate [Ventolin HFA] 90 mcg/actuation HFA aerosol inhaler 1 inh inhalation Q6H PRN (Reason: shortness of breath or wheezing) Qty: 6.7 0RF Continued tamsulosin 0.4 mg capsule 0.4 mg PO DAILY Qty: 90 3RF aspirin 81 mg Tablet,Delayed Release (Dr/Ec) 81 mg PO DAILY Qty: 30 0RF No Action (DME) nebulizer machine with tubing and delivery device See Rx Instructions .Route .MEDSUPPLY Qty: 1 0RF Rx Instructions: As directed Discharge Order = DC NOW: Discharge Order (Routine); Ordered 12/02/24 Ordered By: Nicky Milner Other Ambulatory Orders: DME: Oxygen (Order) Location: None Selected Ordered By: Nicky Milner DME: Walker (Order) Location: None Selected Ordered By: Nicky Milner Referrals: [facility] [place] [Outside] Barney Hamilton MD [Physician, Orthopedics] - 12/15/24 1:30 pm Mireya Quinones FNP [Primary Care Provider, Family Practice] - 12/08/24 12:00 pm Referral Note: We have notified your physician's clinic of the need for a follow-up appointment to be scheduled. If you have not heard from them within the next 2 business days, please call them directly. Patient Instructions: Hydrocodone/Acetaminophen (By mouth), Albuterol (By breathing), Leg Fracture (GEN), Opioid Safety, Patient Portal & [facility] Instructions Discharge Attestations Time Spent in Discharge Care*: greater than 30 min Status at Discharge: Cognitive status at discharge: cognitively intact , Behavioral status at discharge: cooperative , Quality Metrics Clinical Quality Measures [ No reported AMI, CVA or VTE this stay] Coding Level of Care Code Acute Code for Chg Fwd Diagnoses Fracture of greater trochanter S72.113A Emphysema lung J43.9 Malnutrition E46
== END 2024-12-02 12:27 | disposition home or self-care (01) | DRG 535 ==
LOC: ER 13:55 → MEDSURG 14:13
PROVIDERS: Admitting Provider Student in an Organized Health Care Education/Training Program; Emergency Provider Family Medicine; PCP Nurse Practitioner Family; Visit Provider Student in an Organized Health Care Education/Training Program
DX: S72.112A Displaced fracture of greater trochanter of left femur, initial encounter for closed fracture (principal); J18.9 Pneumonia, unspecified organism; E46 Unspecified protein-calorie malnutrition; Z68.1 Body mass index [BMI] 19.9 or less, adult; I69.954 Hemiplegia and hemiparesis following unspecified cerebrovascular disease affecting left non-dominant side; W18.30XA Fall on same level, unspecified, initial encounter; J43.9 Emphysema, unspecified; F17.210 Nicotine dependence, cigarettes, uncomplicated; N40.1 Benign prostatic hyperplasia with lower urinary tract symptoms; I77.819 Aortic ectasia, unspecified site; N28.9 Disorder of kidney and ureter, unspecified; R09.02 Hypoxemia; Z79.82 Long term (current) use of aspirin; Z86.16 Personal history of COVID-19
CPT/HCPCS: 36415; 70450; 71045; 73502; 73700; 80053; 81001; 83605; 85025; 87040; 87637; 93005; 94640; 94760; 96365; 96372; 96375; 97110; 97161; 99285; J0456; J0696; J1644; J2270; J2919; J7050; J7626; J9999

== ENCOUNTER → 2024-12-08 12:36 | Outpatient (BNVA) | payer MEDICARE, OTHER, SELFPAY | PROVIDERS: PCP Nurse Practitioner Family; Visit Provider Nurse Practitioner Family | DX: S42.034A Nondisplaced fracture of lateral end of right clavicle, initial encounter for closed fracture (principal); W19.XXXA Unspecified fall, initial encounter; M19.011 Primary osteoarthritis, right shoulder; M85.811 Other specified disorders of bone density and structure, right shoulder | CPT/HCPCS: 73030 ==

== ENCOUNTER → 2024-12-15 13:45 | Outpatient (BNVA) | payer MEDICARE, OTHER, SELFPAY | PROVIDERS: PCP Nurse Practitioner Family; Visit Provider Orthopaedic Surgery | DX: S72.115A Nondisplaced fracture of greater trochanter of left femur, initial encounter for closed fracture (principal); S42.034A Nondisplaced fracture of lateral end of right clavicle, initial encounter for closed fracture; W18.30XA Fall on same level, unspecified, initial encounter; Z91.81 History of falling | CPT/HCPCS: 73502; 99214 ==